=== PATIENT | male | born 1940 | race Caucasian/White ===

== ENCOUNTER 2017-01-10 14:39 | Outpatient (RCR) | payer MEDICARE ==
--- OUTSIDE RECORDS SUMMARY | 2016-10-14 10:06 | XMS REPORT | Continuity of Care Document ---
Author Author [facility] Organization [facility] Address Unknown Phone Unavailable Care Team Providers Care Code Enforcement Officer Name Role Phone Casanova, D PCP [phone] Source Comments Some departments are not documenting in the electronic medical record. If you do not see the information that you expected, contact Release of Information in the Health Information Management department at [phone] for further assistance in locating additional records.[facility] Active Allergies and Adverse Reactions Allergen Noted Date Severity Reactions Comments Pcn 08/15/2016 Medium HIVES Sulfa (Sulfonamide 08/15/2016 Medium HIVES Antibiotics) Current Medications Prescription Sig. Disp. Refills Start End Date Status Date fenofibrate(+) (TRIGLIDE) Take 160 mg by mouth Active 160 mg tablet daily. Take with food. lisinopril (PRINIVIL, Take 40 mg by mouth Active ZESTRIL) 40 mg tablet daily. amLODIPine (NORVASC) 5 mg Take 5 mg by mouth daily. Active tablet furosemide (LASIX) 40 mg Take 40 mg by mouth every Active tablet morning. potassium chloride SR Take 20 mEq by mouth Active (K-DUR) 20 mEq tablet daily. Take with a meal and a full glass of water. nebivolol (BYSTOLIC) 5 mg Take 5 mg by mouth daily. Active tablet alendronate 70 mg tbef Take by mouth every 7 Active days. CINNAMON BARK (CINNAMON Take 500 mg by mouth. Active PO) rosuvastatin (CRESTOR) 5 Take 5 mg by mouth four Active mg tablet times weekly. aspirin 81 mg chewable Chew 81 mg by mouth at Active tablet bedtime daily. Take with food. timolol (TIMOPTIC) 0.5 % 1 Drop once. Active ophthalmic solution brinzolamide(+) (AZOPT) 1 1 Drop twice daily. Active % ophthalmic suspension fish oil /omega-3 fatty Take 1 Cap by mouth twice Active acids (SEA-OMEGA) daily. 340/1000 mg capsule Cinnamon Bark 500 mg cap Take 1 Cap by mouth Active daily. niacin ER (NIASPAN) 500 Take 500 mg by mouth at Active mg tablet bedtime daily. Take with food. latanoprost (XALATAN) Place 1 Drop into or Active 0.005 % ophthalmic around eye(s) at bedtime solution daily. DOCOSAHEXANOIC ACID/EPA Take 1,000 mg by mouth. 09/16/20 Discontin (FISH OIL PO) 16 ued warfarin (COUMADIN) 5 mg Take 5 mg by mouth at 09/30/20 Discontin tablet bedtime daily. 16 ued niacinamide(+) (NIACIN Take 500 mg by mouth at 09/16/20 Discontin (NIACINAMIDE)) 500 mg bedtime daily. Take with 16 ued tablet food. latanoprost (XALATAN) Place 1 Drop into or 09/29/20 Discontin 0.005 % ophthalmic around eye(s) at bedtime 16 ued solution daily. HYDROcodone/acetaminophen Take 1-2 Tabs by mouth 30 Tab 0 09/30/20 10/13/20 Discontin (NORCO) 5/325 mg tablet every 6 hours as needed 16 16 ued for Pain Earliest Fill Date: 09/30/16 Active Problems Problem Noted Date Hypercalcemia 2016 Hyperparathyroidism (HCC) 08/15/2016 Parathyroid adenoma 08/15/2016 History of osteoporosis 08/15/2016 Deep vein thrombosis (DVT) of lower extremity (HCC) 08/15/2016 Most Recent Encounters Date Type Specialty Providers Description 2016 Office Visit Otolaryngology Katelyn Marshall, Parathyroid adenoma PAPhilippe (Primary Dx); Hypercalcemia 2016 [facility] Lazara Pascual MD Hyperparathyroidism, Encounter unspecified 09/29/2016 Hospital Sharon Stephen MD Hyperparathyroidism (HCC) - Encounter 09/30/2016 09/29/2016 Surgery Sharon Stephen MD PARATHYROIDECTOMY 09/16/2016 PAC Office Anesthesiology Sharon Stephen MD Pre-operative Visit cardiovascular examination (Primary Dx); Preop examination; Hyperparathyroidism (HCC) 09/16/2016 Anesthesia Khushbu Weaver, Event [employer] COM[employer]ER 09/13/2016 Cancer Otolaryngology Sharon Stephen MD Conference 09/07/2016 Orders Only Otolaryngology Jacki Tiwari RN Hyperparathyroidism (HCC) (Primary Dx); Preoperative clearance; Deep vein thrombosis (DVT) of distal vein of both lower extremities, unspecified chronicity (HCC) 09/01/2016 Prep for Case Otolaryngology Jacki Tiwari RN 08/25/2016 Telephone Otolaryngology Sharon Stephen MD Appointment 08/15/2016 Office Visit Otolaryngology Sharon Stephen MD Hyperparathyroidism (HCC) (Primary Dx); Parathyroid adenoma; History of osteoporosis; 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 ([facility]) 08/11/2016 [facility] Radiology Sharon Stephen MD Encounter 08/11/2016 [facility] Radiology Sharon Stephen MD Encounter 08/11/2016 [facility] Radiology Sharon Stephen MD Encounter 08/02/2016 Orders Only Oncology Sharon Stephen MD Elevated parathyroid hormone (Primary Dx) 07/26/2016 Orders Only Otolaryngology Sharon Stephen MD Hyperparathyroidism ([facility]) (Primary Dx) Social History Tobacco Use Types Packs/Day Years Used Date Never Smoker Smokeless Tobacco: Never Used Alcohol Use Drinks/Week oz/Week Comments No Last Filed Vital Signs Vital Sign Reading Time Taken Blood Pressure 114/75 2016 1:33 PM [employer] Pulse 66 2016 1:33 PM [employer] DES[employer] Temperature 36.8 C (98.3 F) 09/30/2016 7:55 AM F[employer] DES[employer]ER Respiratory Rate - - Height 1.651 m (5' 5") 2016 1:33 PM [employer]UR DES[employer]ER Weight 97.977 kg (216 lb) 2016 1:33 PM FUR DES[employer]ER Body Mass Index 35.94 2016 1:33 PM [employer] DES[employer]ER Oxygen Saturation 97% 09/30/2016 7:55 AM FUR DESIGNER Plan of Care Date Type Specialty Providers Description 11/01/2016 Appointment Otolaryngology Katelyn Marshall PA-C [address] [place] [address] [phone] (Fax) Health Maintenance Due Date Last Done Comments Physical (Comprehensive) 1947 Exam Pertussis Vaccine 1950 Tetanus Vaccine 1956 Shingles Vaccine 1999 Prevnar/Pneumovax (#1) 2004 Influenza Vaccine 06/30/2016 Procedures from Last 3 Months Procedure Name Priority Date/Time Associated Diagnosis Comments PROCEDURES-SCAN 10/03/2016 Results for this 1:10 PM FUR DES[employer]ER procedure are in the results section. PROCEDURES-SCAN 10/03/2016 Results for this 12:43 PM FUR DESIGNER procedure are in the results section. RECURRENT LARYNGEAL NERVE 09/29/2016 Hyperparathyroidism (HCC) MONITORING 11:20 AM FUR DESIGNER Special Needs 09/27 PER CONV. WITH GRACE, REQUEST TF DR. LYUBOV HAMILTON ([id number]) FLEXIBLE LARYNGOSCOPY 09/29/2016 Hyperparathyroidism (HCC) 11:20 AM [employer] DES[employer]ER Special Needs 09/27 PER CONV. WITH GRACE, REQUEST TF DR. LYUBOV HAMILTON ([id number]) DIRECT LARYNGOSCOPY 09/29/2016 Hyperparathyroidism (HCC) 11:20 AM [employer] DES[employer]ER Special Needs 09/27 PER CONV. WITH GRACE, REQUEST TF DR. LYUBOV HAMILTON ([id number]) PARATHYROIDECTOMY 09/29/2016 Hyperparathyroidism (HCC) 11:20 AM [employer] DES[employer]ER Special Needs 09/27 PER CONV. WITH GRACE, REQUEST TF DR. LYUBOV HAMILTON ([id number]) Results from Last 3 Months PARATHYROID HORMONE (2016 11:25 AM)Only the most recent of 3 results within the time period is included. Component Value Range PTH Hormone 27.2 10-65 PG/ML Specimen Blood CALCIUM (2016 11:25 AM)Only the most recent of 4 results within the time period is included. Component Value Range Calcium 9.6 8.5-10.6 MG/DL Specimen Blood IONIZED CALCIUM (2016 11:25 AM)Only the most recent of 4 results within the time period is included. Component Value Range Ionized Calcium 1.26 1.0-1.3 MMOL/L Specimen Blood PATHOLOGY INTEROPERATIVE REPORT SCAN (10/04/2016 11:07 AM) Narrative Ordered by an unspecified provider. PROCEDURES-SCAN (10/03/2016 1:10 PM) Narrative Ordered by an unspecified provider. PROCEDURES-SCAN (10/03/2016 12:43 PM) Narrative Ordered by an unspecified provider. PTH, INTRA OPERATIVE (09/29/2016 1:02 PM)Only the most recent of 3 results within the time period is included. Component Value Range Time 3RD @ 1302 MIN PTH Quick 61.0 PG/ML Specimen Blood SURGICAL PATHOLOGY (09/29/2016 1:01 PM) Component Value Range PATHOLOGY REPORT [facility] [email or web address] Kelsea Joseph MD, PhD, Director of Anatomic Pathology Department of Pathology and Laboratory Medicine [address] [place] [id number] Surgical Pathology Office: [phone] SURGICAL PATHOLOGY REPORT NAME: CHERIE BEE SURG PATH #: [id number] MR #: [id number] SPECIMEN CLASS: SR BILLING #: [id number] ALT ID #: LOCATION: [facility] DATE OF PROCEDURE: 09/29/2016 AGE: 75 SEX: M DATE RECEIVED: 09/29/2016 : 1940 TIME RECEIVED: 13:01 PHYSICIAN: SHARON STEPHEN DATE OF REPORT: 10/04/2016 COPY TO: DATE OF PRINTIN10/04/2016 ################################################## ###################### Final Diagnosis: A. Parathyroid, "right inferior parathyroid adenoma", parathyroidectomy: Hypercellular parathyroid consistent with adenoma. Attestation: By this signature, I attest that I have personally formulated the final interpretation expressed in this report and that the above diagnosis is based upon my examination of the slides and/or other material indicated in this report. +++Electronically Signed Out By+++ bisi/10/02/2016 Interpreted by: Wes Richmond MD, Attending Physician Alexis Zuniga D.O. 10/04/2016 ################################################## ###################### Material Received: A: right inferior parathyroid adenoma History: 75-year-old male with a clinical history of hyperparathyroidism. Gross Description: A. Received fresh, labeled with the patient's name and "right inferior parathyroid adenoma" is a 2.341 g, 2.4 x 2.4 x 0.6 cm mattson-brown portion of soft tissue. The specimen is inked black and serially sectioned to reveal a mattson-brown and homogenous cut surface. The specimen is submitted for frozen section follows: A1FS Frozen section remnant. A2 The remainder of the specimen. (ads) as09/29/2016 Alexis Zuniga D.O. Intraoperative Consultation: A1FS, parathyroid, "right inferior parathyroid adenoma", excision: Hypercellular parathyroid. Wes Richmond MD, Attending Physician BASIC METABOLIC PANEL (09/16/2016 1:17 PM) Component Value Range Sodium 140 137-147 MMOL/L Potassium 4.9 3.5-5.1 MMOL/L Chloride 109 98-110 MMOL/L CO2 28 21-30 MMOL/L Anion Gap 3 3-12 Glucose 97 70-100 MG/DL Blood Urea Nitrogen 24 7-25 MG/DL Creatinine 1.43 (H) 0.4-1.24 MG/DL Calcium 10.9 (H) 8.5-10.6 MG/DL eGFR Non 48 (L)Comment: >60 mL/min The eGFR is not validated for use in drug dosing adjustments. Continue to use estimated creatinine clearance per dosing reference text. Please contact the Clinical Pharmacist for questions. eGFR 58 (L)Comment: >60 mL/min The eGFR is not validated for use in drug dosing adjustments. Continue to use estimated creatinine clearance per dosing reference text. Please contact the Clinical Pharmacist for questions. Specimen Blood CBC (09/16/2016 1:17 PM) Component Value Range White Blood Cells 5.9 4.5-11.0 K/UL RBC 4.54 4.4-5.5 M/UL Hemoglobin 13.1 (L) 13.5-16.5 GM/DL Hematocrit 39.2 (L) 40-50 % MCV 86.4 80-100 FL MCH 29.0 26-34 PG MCHC 33.5 32.0-36.0 G/DL RDW 14.4 11-15 % Platelet Count 233 150-400 K/UL MPV 7.8 7-11 FL Specimen Blood US THYROID (08/11/2016 2:53 PM) Impressions Parathyroid adenoma posterior to the mid to lower pole of the right lobe of the thyroid. Normal size thyroid with small well-defined bilateral nodules most compatible with follicular nodules Small number of reactive appearing bilateral cervical lymph nodes Finalized by Arsalan Metcalf M.D. on 08/11/2016 5:19 PM. Dictated by Arsalan Metcalf M.D. on 08/11/2016 3:01 PM. Narrative Thyroid sonogram Clinical indications: No evidence of parathyroid hormone. Technique: Ultrasound images were performed over the thyroid and anterior neck. Findings: Correlation is made with a parathyroid scan dated 08/11/2016. A well-defined hypoechoic solid mass with a minimal amount of peripheral blood flow is identified posterior to the the mid to lower pole of the right lobe of the thyroid corresponding to an area of increased activity on the parathyroid nuclear scan of the same day. As nodule measures 2.0 x 1.8 x 1.6 cm. No other findings to suggest parathyroid abnormality identified in the neck. Thyroid is normal in size. The right lobe measures 4.6 x 1.8 x 2.2 cm. The left lobe measures 5.0 x 1.9 x 1.7 cm. Right lobe thyroid nodules There is a well-defined hypoechoic nodule in the anterior inferior right lobe measuring 0.5 x 0.6 x 0.3 cm. Left lobe thyroid nodule There is an isoechoic nodule with small peripheral areas of decreased echogenicity in the lower pole of the left lobe. This nodule measures 0.9 x 0.8 x 1.1 cm and demonstrates minimal, primarily peripheral blood flow. Lymph nodes There is a reactive appearing mildly prominent left mid cervical lymph node measuring 1.3 x 0.8 x 0.3 cm. There is a normal-size reactive appearing right submandibular lymph node measuring 1.6 x 0.7 x 1.1 cm. No abnormal blood flow seen within the lymph nodes. Procedure Note Interface, Radiant Results - Jessa Aug 11, 2016 5:22 PM CDT Thyroid sonogram Clinical indications: No evidence of parathyroid hormone. Technique: Ultrasound images were performed over the thyroid and anterior neck. Findings: Correlation is made with a parathyroid scan dated 08/11/2016. A well-defined hypoechoic solid mass with a minimal amount of peripheral blood flow is identified posterior to the the mid to lower pole of the right lobe of the thyroid corresponding to an area of increased activity on the parathyroid nuclear scan of the same day. As nodule measures 2.0 x 1.8 x 1.6 cm. No other findings to suggest parathyroid abnormality identified in the neck. Thyroid is normal in size. The right lobe measures 4.6 x 1.8 x 2.2 cm. The left lobe measures 5.0 x 1.9 x 1.7 cm. Right lobe thyroid nodules There is a well-defined hypoechoic nodule in the anterior inferior right lobe measuring 0.5 x 0.6 x 0.3 cm. Left lobe thyroid nodule There is an isoechoic nodule with small peripheral areas of decreased echogenicity in the lower pole of the left lobe. This nodule measures 0.9 x 0.8 x 1.1 cm and demonstrates minimal, primarily peripheral blood flow. Lymph nodes There is a reactive appearing mildly prominent left mid cervical lymph node measuring 1.3 x 0.8 x 0.3 cm. There is a normal-size reactive appearing right submandibular lymph node measuring 1.6 x 0.7 x 1.1 cm. No abnormal blood flow seen within the lymph nodes. IMPRESSION Parathyroid adenoma posterior to the mid to lower pole of the right lobe of the thyroid. Normal size thyroid with small well-defined bilateral nodules most compatible with follicular nodules Small number of reactive appearing bilateral cervical lymph nodes Finalized by Arsalan Metcalf M.D. on 08/11/2016 5:19 PM. Dictated by Arsalan Metcalf M.D. on 08/11/2016 3:01 PM. NM PARATHYROID STATIC, SPEC/CT (08/11/2016 1:54 PM) Impressions FOCAL ABNORMAL RADIONUCLIDE ACCUMULATION POSTERIOR AND INFERIOR TO THE RIGHT LOBE OF THE THYROID, CORRESPONDING TO A SMALL NODULE NOTED ON THE SPECT CT FUSED IMAGES, SUGGESTIVE OF A PARATHYROID ADENOMA. Approved by Adrián Rowell MD on 08/11/2016 2:42 PM By my electronic signature, I attest that I have personally reviewed the images for this examination and formulated the interpretations and opinions expressed in this report Finalized by Matthew Nielson M.D. on 08/11/2016 3:08 PM. Dictated by Adrián Rowell MD on 08/11/2016 2:19 PM. Narrative PROCEDURE: PARATHYROID SCAN TUMOR SPECT (SESTAMIBI) CLINICAL HISTORY: Hyperparathyroidism TECHNIQUE: 21.8 mCi of technetium-99m sestamibi was administered intravenously. Anterior planar images of the upper chest, neck, and head were obtained at intervals of 20 minutes and at 2 hours post injection. SPECT-CT images were also obtained at 2 hours post injection. FINDINGS: The 20 minutes post injection anterior planar images show normal activity within the parotid glands, submandibular glands, nasopharynx and thyroid gland. There appears to be a focal area of abnormal increased uptake overlying the lower pole of the right thyroid. The 2 hours post injection planar images show mild washout of activity in the thyroid gland with continued activity in the parotid and submandibular glands and nasopharynx. Planar and SPECT CT images demonstrate persistent focal abnormal increased uptake posterior and inferior to the right lobe of the thyroid which corresponds to a small nodule in the area likely representing a parathyroid adenoma. No other focal areas of abnormal increased uptake are identified. Procedure Note Interface, Radiant Results - Jessa Aug 11, 2016 3:11 PM CDT PROCEDURE: PARATHYROID SCAN TUMOR SPECT (SESTAMIBI) CLINICAL HISTORY: Hyperparathyroidism TECHNIQUE: 21.8 mCi of technetium-99m sestamibi was administered intravenously. Anterior planar images of the upper chest, neck, and head were obtained at intervals of 20 minutes and at 2 hours post injection. SPECT-CT images were also obtained at 2 hours post injection. FINDINGS: The 20 minutes post injection anterior planar images show normal activity within the parotid glands, submandibular glands, nasopharynx and thyroid gland. There appears to be a focal area of abnormal increased uptake overlying the lower pole of the right thyroid. The 2 hours post injection planar images show mild washout of activity in the thyroid gland with continued activity in the parotid and submandibular glands and nasopharynx. Planar and SPECT CT images demonstrate persistent focal abnormal increased uptake posterior and inferior to the right lobe of the thyroid which corresponds to a small nodule in the area likely representing a parathyroid adenoma. No other focal areas of abnormal increased uptake are identified. IMPRESSION FOCAL ABNORMAL RADIONUCLIDE ACCUMULATION POSTERIOR AND INFERIOR TO THE RIGHT LOBE OF THE THYROID, CORRESPONDING TO A SMALL NODULE NOTED ON THE SPECT CT FUSED IMAGES, SUGGESTIVE OF A PARATHYROID ADENOMA. Approved by Adrián Rowell MD on 08/11/2016 2:42 PM By my electronic signature, I attest that I have personally reviewed the images for this examination and formulated the interpretations and opinions expressed in this report Finalized by Matthew Nielson M.D. on 08/11/2016 3:08 PM. Dictated by Adrián Rowell MD on 08/11/2016 2:19 PM.
[~2017-01-10 14:39] MED LIST: AMLO5TAB2; CALC1CAP6; CLN.1T; FOSI40TA; FURO40TA4; KCL20TCR; LORA0.5T; MULT1TAB87; NEBI5TAB8; ONDA4TAB8 SL; OXYC5TAB; SIMV20TA3; TRAM50TA2 PO; [UNRECOGNIZED DRUG - CODE]
[2017-01-12 07:49] LABS: CREATININE SERUM 1.41 MG/DL
== END 2017-01-12 | disposition home or self-care (01) ==
LOC: ONC 14:39
PROVIDERS: ATTEND Radiology Radiation Oncology
DX: C61 Malignant neoplasm of prostate (principal)
CPT/HCPCS: 36415; 82565; 84153; 84520; 99213

== ENCOUNTER → 2017-01-16 | Outpatient (CLI) | payer MEDICARE ==
--- OUTSIDE RECORDS SUMMARY | 2017-01-16 11:08 | XMS REPORT | Continuity of Care Document ---
Author Author [facility] Organization [facility] Address Unknown Phone Unavailable Care Team Providers Care [place]inderman Name Role Phone Casanova, D PCP [phone] Source Comments Some departments are not documenting in the electronic medical record. If you do not see the information that you expected, contact Release of Information in the Health Information Management department at [phone] for further assistance in locating additional records.[facility] Active Allergies and Adverse Reactions [...] ophthalmic around eye(s) at bedtime solution daily. Active Problems Problem Noted Date Hypercalcemia 2016 Hyperparathyroidism (HCC) 08/15/2016 Parathyroid adenoma 08/15/2016 History of osteoporosis 08/15/2016 Deep vein thrombosis (DVT) of lower extremity (HCC) 08/15/2016 Most Recent Encounters Date Type Specialty Providers Description 11/01/2016 Office Visit Otolaryngology Katelyn Marshall, Parathyroid adenoma PA-C (Primary Dx); Hypercalcemia 11/01/2016 Hospital Katelyn Marshall, Benign neoplasm of Encounter PA-C parathyroid gland Social History Tobacco Use Types Packs/Day Years Used Date Never Smoker Smokeless Tobacco: Never Used Alcohol Use Drinks/Week oz/Week Comments No Last Filed Vital Signs Vital Sign Reading Time Taken Blood Pressure 125/79 11/01/2016 1:21 PM [employer]ABLE [employer] Pulse 60 11/01/2016 1:21 PM [employer] Temperature 36.8 C (98.3 F) 09/30/2016 7:55 AM [employer] Respiratory Rate - - Height 1.651 m (5' 5") 11/01/2016 1:21 PM [employer] Weight 100.971 kg (222 lb 9.6 11/01/2016 1:21 PM [employer]ABLE [employer] oz) Body Mass Index 37.04 11/01/2016 1:21 PM [employer]ABLE [employer] Oxygen Saturation 97% 09/30/2016 7:55 AM [employer]ABLE [employer] Plan of Care Health Maintenance Due Date Last Done Comments Physical (Comprehensive) 1947 Exam Pertussis Vaccine 1950 Tetanus Vaccine 1956 Shingles Vaccine 1999 Prevnar/Pneumovax (#1) 2004 Influenza Vaccine 06/30/2016 Results from Last 3 Months IONIZED CALCIUM (11/01/2016 10:58 AM) Component Value Range Ionized Calcium 1.25 1.0-1.3 MMOL/L Specimen Blood CALCIUM (11/01/2016 10:58 AM) Component Value Range Calcium 9.5 8.5-10.6 MG/DL Specimen Blood
--- NOTE | 2017-01-16 12:36 | Diagnostic Imaging Report ---
PROCEDURE: CT abdomen and pelvis without contrast. TECHNIQUE: Multiple contiguous axial images were obtained through the abdomen and pelvis without the use of intravenous contrast. INDICATION: Prostate cancer. FINDINGS: There are mild fibrotic changes seen in the lung bases. There are also old rib fractures seen in the lower ribs. There are numerous lesions in the liver with fluid attenuation of 3.4 cm in size and some are subcentimeter, too small to characterize. At least the larger lesions are most likely related to cysts and multiple simple cysts in the liver were seen on ultrasound of 04/02/2013. The gallbladder appears contracted but no calcified stones. The spleen, the pancreas, and the adrenal glands appear unremarkable. The kidneys demonstrate no hydronephrosis. There is a 4 mm nonobstructive stone in the mid right kidney. The abdominal aorta is normal in caliber. No para-aortic significantly enlarged lymph nodes are seen. There is an IVC filter seen. One of the legs of the filter extend outside the margin of the IVC. There are changes of old pelvic fractures with plate and screws internal fixation in the left pelvic bones. This results in significant beam hardening artifacts. This is also accompanied by posterior fusion hardware at the L4 and L5 levels also contributing to these artifacts. There are fiducial markers within the prostate which is at the upper limits of normal in size. The urinary bladder demonstrates mild wall thickening which may relate to cystitis. There is no bowel obstruction. No significant free fluid or fluid collection in the abdomen or pelvis seen. The osseous structures demonstrate no CT evidence of sclerotic metastasis. IMPRESSION: 1. Mild wall thickening in the urinary bladder may be related to cystitis. 2. There is no solid mass or lymphadenopathy identified in the abdomen or pelvis. Multiple liver lesions appears to relate to simple cysts. 3. IVC filter is in place with some of the filter legs extending outside the IVC margin into the adjacent retroperitoneal fat. Dictated by: Dictated on workstation # [id number]
--- NOTE | 2017-01-16 17:57 | Diagnostic Imaging Report ---
Whole body bone scan. TECHNIQUE: After the intravenous administration of 25 mCi of Technetium 99m MDP, whole body delayed phase bone scan images were obtained with lateral views of the head and neck and the chest regions. INDICATION: Prostate cancer. FINDINGS: There are foci of increased radiotracer uptake seen within the mid and lower left ribs, three foci posteriorly and two foci anteriorly. The patient has evidence of old rib fractures on the lower left rib space on CT scan performed on the same day of the abdomen and pelvis. There is at L1 level mild increased focus of activity seen projecting along the right side of the vertebral body may relate to degenerative changes with corresponding sclerotic changes seen at the costovertebral junction and adjacent facet joints. Also, degenerative-related activity in the lower lumbar spine seen. Urinary tract activity seen. IMPRESSION: Foci of increased activity in the ribs are probably posttraumatic. Upper and lower lumbar spine areas of mild increased uptake are probably degenerative. Correlate clinically and with followup exams. Dictated by: Dictated on workstation # [id number]
== END ==
LOC: CARD 11:04
PROVIDERS: ATTEND Nurse Practitioner Family
DX: C61 Malignant neoplasm of prostate (principal)
CPT/HCPCS: 74176; 78306

== ENCOUNTER → 2017-02-01 | Outpatient (CLI) | payer MEDICARE ==
--- NOTE | 2017-02-02 08:27 | ECHOCARDIOGRAPHY REPORT ---
PROCEDURE PHYSICIAN: EVIE ADAMS DATE OF PROCEDURE: 02/01/2017 TWO DIMENSIONAL ECHOCARDIOGRAM REPORT PRIMARY PHYSICIAN: OTHER PHYSICIAN: REFERRING PHYSICIAN: Dr. Casanova ORDERING PHYSICIAN: INDICATION FOR THE PROCEDURE: Hypertension. MEASUREMENTS DERIVED VALUES LV DIAMETER (LAX) NORMALS NORMALS Diastolic 4.5 (3.6-5.2) Eject. Fract. 60% (60%+/-6%) Systolic (2.3-3.9) Diastolic Vol. % Shortening (0.22-0.42) Systolic Vol. Aortic Root IVS THICKNESS Diastolic 1.3 (0.6-1.1) LVPW THICKNESS Diastolic 1.3 (0.6-1.1) LA DIAMETER Systolic 4 (2.1-3.7) FINDINGS: 1. Technical quality is good. 2. The left ventricle is normal in size with moderate left ventricular hypertrophy noted diffusely. Systolic function appeared to be normal. Estimated ejection fraction 60%. 3. The left atrium is in the upper normal limits. No clot or thrombus were seen within the left atrium. 4. The right atrium and right ventricle are normal in size. No clot or thrombus were seen within the right side. 5. Mitral valve is normal in morphology with mild mitral regurgitation noted by color Doppler flow. No mitral valve prolapse. No mitral valve stenosis. 6. Aortic valve leaflets were not well visualized. No significant aortic stenosis or regurgitation was seen. 7. Tricuspid valve is normal in morphology with mild tricuspid regurgitation noted by color Doppler flow. Doppler across the tricuspid valve estimated the pulmonary artery pressure of 17+ right atrial pressure. 8. Pulmonic valve is functioning normally. 9. No pericardial effusion. IN CONCLUSION: 1. Moderate left ventricular hypertrophy noted diffusely. Systolic function appeared to be preserved. Estimated ejection fraction 60%. 2. Mildly dilated left atrium. 3. Mild mitral and tricuspid regurgitation. 4. Estimated pulmonary artery pressure of 25 mmHg. Job ID: [id number] Dictated Date: 02/01/2017 16:25:31 Lift Builder Whole Date: 02/02/2017 08:24:24 / susan
== END ==
LOC: CARD 13:30
PROVIDERS: ATTEND Physician Assistant
DX: I65.23 Occlusion and stenosis of bilateral carotid arteries (principal); R06.02 Shortness of breath; I10 Essential (primary) hypertension; E78.2 Mixed hyperlipidemia
CPT/HCPCS: 93306

== ENCOUNTER → 2017-02-15 | Outpatient (CLI) | payer MEDICARE ==
--- NOTE | 2017-02-15 15:44 | Diagnostic Imaging Report ---
EXAMINATION: Two views of the right hip. INDICATION: Right groin pain. FINDINGS: There is mild joint space narrowing and subchondral sclerosis compatible with osteoarthritis in the right hip. Mild sclerotic degenerative changes are also seen in the symphysis pubis. Partially visualized hardware fixating the left acetabulum is noted with deformity in the superior left pubic ramus. There is also hardware partially seen in the lower lumbar spine fusing L4 and L5. Mild degenerative changes in the SI joint on the right are also seen. IMPRESSION: Mild degenerative changes. No acute process. Dictated by: Dictated on workstation # [id number]
== END ==
LOC: RAD 14:06
PROVIDERS: ATTEND Internal Medicine
DX: M25.551 Pain in right hip (principal)
CPT/HCPCS: 73502

== ENCOUNTER 2017-03-20 18:05 | Emergency (ER) | payer MEDICARE ==
[~2017-03-20] VITALS: Ht 172.7 cm; Wt 94.8 kg
[2017-03-20] MEDS ORDERED: BICA50TA (18:39)
[2017-03-20 19:04] LABS: BASOPHILS % (AUTO) 0 % (0-10); EOSINOPHILS # (AUTO) 0.1 10^3/uL (0.0-0.3); EOSINOPHILS % (AUTO) 3 % (0-10); LYMPHOCYTES # (AUTO) 1.3 X 10^3 (1.0-4.0); LYMPHOCYTES % (AUTO) 27 % (12-44); MEAN CORPUSCULAR HEMOGLOBIN 29 PG (25-34); MEAN CORPUSCULAR HGB CONC 33 G/DL (32-36); MEAN CORPUSCULAR VOLUME 90 FL (80-99); MEAN PLATELET VOLUME 9.4 FL (7.4-10.4); MONOCYTES # (AUTO) 0.6 X 10^3 (0.0-1.0); MONOCYTES % (AUTO) 12 % (0-12); NEUTROPHILS # (AUTO) 2.9 X 10^3 (1.8-7.8); NEUTROPHILS % (AUTO) 58 % (42-75); PLATELET COUNT 209 10^3/uL (130-400); RED BLOOD COUNT 4.49 10^6/uL (4.35-5.85); RED CELL DISTRIBUTION WIDTH 14.3 % (10.0-14.5)
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
[2017-03-20 19:16] LABS: INR 2.9 (0.8-1.4); PROTHROMBIN TIME PATIENT 30.5 SEC (12.2-14.7)
[2017-03-20 19:27] LABS: ALANINE AMINOTRANSFERASE 19 U/L (0-55); ALBUMIN 4.2 G/DL (3.2-4.5); ANION GAP 8 MMOL/L (5-14); ASPARTATE AMINO TRANSFERASE 23 U/L (5-34); BILIRUBIN,TOTAL 0.4 MG/DL (0.1-1.0); BLOOD UREA NITROGEN 25 MG/DL (7-18); BUN/CREATININE RATIO 16; CALCIUM 9.4 MG/DL (8.5-10.1); CARBON DIOXIDE 28 MMOL/L (21-32); CHLORIDE 103 MMOL/L (98-107); CREATINE KINASE 121 U/L (30-200); CREATININE SERUM 1.58 MG/DL (0.60-1.30); GFR ESTIMATED 43; GLUCOSE 147 MG/DL (70-105); MAGNESIUM 2.1 MG/DL (1.8-2.4); POTASSIUM 4.4 MMOL/L (3.6-5.0); SODIUM 139 MMOL/L (135-145); TOTAL PROTEIN 6.7 G/DL (6.4-8.2)
--- NOTE | 2017-03-20 19:35 | Diagnostic Imaging Report ---
PROCEDURE: CT head without contrast. TECHNIQUE: Multiple contiguous axial images were obtained through the brain without the use of intravenous contrast. INDICATION: Dizziness, altered mental status. COMPARISON: 10/20/2009. DISCUSSION: Mild diffuse brain volume loss is stable, likely age related. White matter hypoattenuation is nonspecific though not greater than expected for age-related chronic small vessel ischemic disease, stable. No acute intracranial hemorrhage, mass, midline shift, or hydrocephalus. The visualized orbits, paranasal sinuses, mastoid air cells, and calvarium are unremarkable. IMPRESSION: 1. Stable head CT. Dictated by: Dictated on workstation # [id number]
--- NOTE | 2017-03-20 19:38 | Diagnostic Imaging Report ---
INDICATION: Dizziness. DISCUSSION: Single portable upright view of the chest was obtained, comparison 01/11/2007. Scarring within the lingula is stable. Underlying COPD is stable. No focal consolidation, pleural fluid, or pneumothorax. Stable normal heart size. IMPRESSION: 1. No acute cardiopulmonary process. Dictated by: Dictated on workstation # [id number]
[2017-03-20 19:47] LABS: TROPONIN I < 0.30 NG/ML (<0.30)
[2017-03-20 20:17] LABS: BILIRUBIN,URINE NEGATIVE (NEGATIVE); KETONES,URINE NEGATIVE (NEGATIVE); LEUKOCYTE ESTERASE ,URINE 1+ (NEGATIVE); NITRITE,URINE NEGATIVE (NEGATIVE); PH,URINE 8 (5-9); PROTEIN,URINE 1+ (NEGATIVE); UROBILINOGEN,URINE NORMAL (NORMAL)
[2017-03-20 20:46] LABS: WBC,URINE 0-2 /HPF
[2017-03-20] MEDS ORDERED: LORA-404 PO (20:58)
[2017-03-20] MEDS ORDERED: RX-LORAZEPAM (ATIVAN) 0.5 MG TAB PPK#4 PO STA (20:59)
[2017-03-20] MEDS ORDERED: RX-LORAZEPAM (ATIVAN) 0.5 MG TAB PPK#4 PO ONE (20:59)
[2017-03-20 21:06] VITALS: BP 132/84
--- OUTSIDE RECORDS SUMMARY | 2017-04-11 16:55 | XMS REPORT | Continuity of Care Document ---
Author Author [facility] Organization [facility] Address Unknown Phone Unavailable Care Team Providers Care Life Skills Instructor Name Role Phone Louis Casanova Shyanne PCP [phone] Source Comments Some departments are not documenting in the electronic medical record. If you do not see the information that you expected, contact Release of Information in the Health Information Management department at [phone] for further assistance in locating additional records.[facility] Active Allergies and Adverse Reactions Allergen Noted [...] Deep vein thrombosis (DVT) of lower extremity ([facility]) 08/15/2016 Social History Tobacco Use Types Packs/Day Years Used Date Never Smoker Smokeless Tobacco: Never Used Alcohol Use Drinks/Week oz/Week Comments No Last Filed Vital Signs Vital Sign Reading Time Taken Blood Pressure 125/79 11/01/2016 1:21 PM [employer] Pulse 60 11/01/2016 1:21 PM [employer] Temperature 36.8 C (98.3 F) 09/30/2016 7:55 AM [employer] Respiratory Rate - - Height 1.651 m (5' 5") 11/01/2016 1:21 PM [employer] Weight 100.971 kg (222 lb 9.6 11/01/2016 1:21 PM [employer] oz) Body Mass Index 37.04 11/01/2016 1:21 PM [employer] Oxygen Saturation 97% 09/30/2016 7:55 AM [employer] Plan of Care Health Maintenance Due Date Last Done Comments Physical (Comprehensive) 1947 Exam Pertussis Vaccine 1950 Tetanus Vaccine 1956 Shingles Vaccine 1999 Prevnar/Pneumovax (#1) 2004 Influenza Vaccine 06/30/2017 Results from Last 3 Months Not on file
--- OUTSIDE RECORDS SUMMARY | 2017-04-11 16:56 | XMS REPORT | Continuity of Care Document ---
Author Author [facility] Organization [facility] Address Unknown Phone Unavailable Allergies Active Description Code Type Severity Reaction Onset Reported/Identified Relationship to Patient Clinical Status Yes Penicillins [id number] Drug Allergy Mild N/A 09/22/2009 Yes Sulfa (Sulfonamide Antibiotics) [id number] Drug Allergy Mild N/A 09/22/2009 Medications Problems Date Dx Coded Attending Type Code Diagnosis Diagnosed By 09/21/2010 Ot 185 MALIGN NEOPL PROSTATE 09/21/2010 Ot V58.0 ENCOUNTER FOR RADIOTHERAPY 07/10/2011 Ot 185 MALIGN NEOPL PROSTATE 11/18/2014 INDY GARZA, ERIKA Hebert Ot 185 05/08/2015 ERIKA PUTNAM MD Ot 185 06/25/2015 Ot 272.4 06/25/2015 Ot 401.9 06/25/2015 Ot 760.9 06/25/2015 Ot 272.4 06/25/2015 Ot 401.9 06/25/2015 Ot 786.09 06/25/2015 Ot 185 06/25/2015 Ot V15.3 06/25/2015 Ot 573.8 06/25/2015 Ot 185 06/25/2015 Ot 185 06/25/2015 Ot 185 06/25/2015 Ot 185 06/25/2015 EVIE ADAMS MD Ot 272.4 06/25/2015 EVIE ADAMS MD Ot 401.9 06/25/2015 EVIE ADAMS MD Ot 573.8 06/25/2015 ERIKA PUTNAM MD Ot 185 06/25/2015 ERIKA PUTNAM MD Ot 185 06/25/2015 ERIKA PUTNAM MD Ot 185 06/25/2015 ERIKA PUTNAM MD Ot 185 06/25/2015 ERIKA PUTNAM MD E Ot 185 07/16/2015 EVIE ADAMS MD Ot 272.4 07/16/2015 EVIE ADAMS MD Ot 401.9 07/16/2015 EVIE ADAMS MD Ot 433.10 07/16/2015 EVIE ADAMS MD Ot 453.40 07/18/2015 JUSTIN MADDOX PRECISION DANCER Ot 496 CHR AIRWAY OBSTRUCT NEC 07/18/2015 JUSTIN MADDOX PRECISION DANCER Ot 593.9 RENAL URETERAL DIS NOS 07/18/2015 JUSTIN MADDOX PRECISION DANCER Ot 780.79 OTH MALAISE FATIGUE 07/18/2015 JUSTIN MADDOX PRECISION DANCER Ot 787.91 DIARRHEA 07/18/2015 JUSTIN MADDOX PRECISION DANCER Ot J44.9 CHRONIC OBSTRUCTIVE PULMONARY DISEASE, U 07/18/2015 JUSTIN MADDOX PRECISION DANCER Ot N28.9 DISORDER OF KIDNEY AND URETER, UNSPECIFI 07/18/2015 JUSTIN MADDOX PRECISION DANCER Ot R19.7 DIARRHEA, UNSPECIFIED 07/18/2015 JUSTIN MADDOX PRECISION DANCER Ot R53.1 WEAKNESS 07/18/2015 JUSTIN MADDOX PRECISION DANCER Ot V58.61 ANTICOAGULANTS,LT,CURRENT USE 07/18/2015 JUSTIN MADDOX PRECISION DANCER Ot Z79.01 SKILLED NURSING (CURRENT) USE OF ANTICOAGULANT 07/24/2015 EVIE ADAMS MD Ot 272.4 07/24/2015 EVIE ADAMS MD Ot 401.9 07/24/2015 EVIE ADAMS MD Ot 433.10 07/24/2015 EVIE ADAMS MD Ot 453.40 11/25/2015 ERIKA PUTNAM MD Ot C61 01/14/2016 ERIKA PUTNAM MD Ot C61 MALIGNANT NEOPLASM OF PROSTATE 01/15/2016 ERIKA PUTNAM MD Ot C61 03/04/2016 Ot 185 MALIGN NEOPL PROSTATE 03/04/2016 Ot V15.3 HX OF IRRADIATION 03/04/2016 Ot 573.8 LIVER DISORDERS NEC 03/04/2016 Ot 185 MALIGN NEOPL PROSTATE 03/04/2016 Ot 185 MALIGN NEOPL PROSTATE 03/04/2016 Ot 185 MALIGN NEOPL PROSTATE 03/04/2016 Ot 185 MALIGN NEOPL PROSTATE 03/04/2016 EVIE ADAMS MD Ot 272.4 HYPERLIPIDEMIA NEC/NOS 03/04/2016 EVIE ADAMS MD Ot 401.9 HYPERTENSION NOS 03/04/2016 EVIE ADAMS MD Ot 573.8 LIVER DISORDERS NEC 03/04/2016 ERIKA PUTNAM MD Ot 185 MALIGN NEOPL PROSTATE 03/04/2016 ERIKA PUTNAM MD Ot 185 MALIGN NEOPL PROSTATE 03/04/2016 ERIKA PUTNAM MD, Ot 185 MALIGN NEOPL PROSTATE 03/04/2016 ERIKA PUTNAM MD, Ot 185 MALIGN NEOPL PROSTATE 03/04/2016 ERIKA PUTNAM MD Ot 185 MALIGN NEOPL PROSTATE 03/04/2016 EVIE ADAMS MD Ot 272.4 HYPERLIPIDEMIA NEC/NOS 03/04/2016 EVIE ADAMS MD Ot 401.9 HYPERTENSION NOS 03/04/2016 EVIE ADAMS MD Ot 433.10 CAROTID ARTERY OCCLUSION W O CEREBRAL IN 03/04/2016 EVIE ADAMS MD Ot 453.40 ACUTE VENOUS EMBOLISM THROMBOSIS UNSP 03/04/2016 ERIKA PUTNAM MD, Ot C61 MALIGNANT NEOPLASM OF PROSTATE 03/04/2016 LING REYES MD Ot S46.001A UNSP INJ MUSC/TEND THE ROTATOR CUFF OF R 03/04/2016 LING REYES MD Ot X58.XXXA EXPOSURE TO OTHER SPECIFIED FACTORS , INI 03/04/2016 LING REYES MD Ot Y92.017 GARDEN OR YARD IN SINGLE-FAMILY ( PRIVATE 03/04/2016 LING REYES MD, Ot Y93.H2 ACTIVITY, GARDENING AND LANDSCAPING 03/04/2016 LING REYES MD Ot Y99.8 OTHER EXTERNAL CAUSE STATUS 03/07/2016 LING REYES MD Ot S46.001A UNSP INJ MUSC/TEND THE ROTATOR CUFF OF R 03/07/2016 LING REYES MD Ot X58.XXXA EXPOSURE TO OTHER SPECIFIED FACTORS , INI 03/07/2016 LING REYES MD Ot Y92.017 GARDEN OR YARD IN SINGLE-FAMILY ( PRIVATE 03/07/2016 LING REYES MD, Ot Y93.H2 ACTIVITY, GARDENING AND LANDSCAPING 03/07/2016 LING REYES MD Ot Y99.8 OTHER EXTERNAL CAUSE STATUS 03/30/2016 Ot V58.61 ANTICOAGULANTS,LT,CURRENT USE 03/30/2016 Ot V58.83 ENCOUNTER FOR THERAPEUTIC DRUG MONITORIN 03/30/2016 Ot 453.40 ACUTE VENOUS EMBOLISM THROMBOSIS UNSP 03/30/2016 Ot V58.61 ANTICOAGULANTS,LT,CURRENT USE 04/14/2016 PUTNAM MD, ERIKA E Ot C61 MALIGNANT NEOPLASM OF PROSTATE 04/14/2016 ERIKA PUTNAM MD Ot C61 MALIGNANT NEOPLASM OF PROSTATE 04/18/2016 ERIKA PUTNAM MD Ot C61 MALIGNANT NEOPLASM OF PROSTATE 05/06/2016 ERIKA PUTNAM MD Ot C61 MALIGNANT NEOPLASM OF PROSTATE 06/30/2016 Ot V58.61 ANTICOAGULANTS,LT,CURRENT USE 06/30/2016 Ot V58.83 ENCOUNTER FOR THERAPEUTIC DRUG MONITORIN 07/28/2016 Ot 573.8 LIVER DISORDERS NEC 07/28/2016 Ot 185 MALIGN NEOPL PROSTATE 07/28/2016 Ot 185 MALIGN NEOPL PROSTATE 07/28/2016 Ot 185 MALIGN NEOPL PROSTATE 07/28/2016 Ot 185 MALIGN NEOPL PROSTATE 07/28/2016 EVIE ADAMS MD Ot 272.4 HYPERLIPIDEMIA NEC/NOS 07/28/2016 EVIE ADAMS MD Ot 401.9 HYPERTENSION NOS 07/28/2016 EVIE ADAMS MD Ot 573.8 LIVER DISORDERS NEC 07/28/2016 ERIKA PUTNAM MD Ot 185 MALIGN NEOPL PROSTATE 07/28/2016 ERIKA PUTNAM MD Ot 185 MALIGN NEOPL PROSTATE 07/28/2016 ERIKA PUTNAM MD Ot 185 MALIGN NEOPL PROSTATE 07/28/2016 ERIKA PUTNAM MD Ot 185 MALIGN NEOPL PROSTATE 07/28/2016 ERIKA PUTNAM MD Ot 185 MALIGN NEOPL PROSTATE 07/28/2016 EVIE ADAMS MD Ot 272.4 HYPERLIPIDEMIA NEC/NOS 07/28/2016 EVIE ADAMS MD Ot 401.9 HYPERTENSION NOS 07/28/2016 EVIE ADAMS MD Ot 433.10 CAROTID ARTERY OCCLUSION W O CEREBRAL IN 07/28/2016 EVIE ADAMS MD Ot 453.40 ACUTE VENOUS EMBOLISM THROMBOSIS UNSP 07/28/2016 ERIKA PUTNAM MD Ot C61 MALIGNANT NEOPLASM OF PROSTATE 07/28/2016 JUAREZ MAGALLANES MD Ot E20.9 HYPOPARATHYROIDISM, UNSPECIFIED 07/28/2016 JUAREZ MAGALLANES MD Ot M85.80 OTH DISRD OF BONE DENSITY AND STRUCTURE, 07/30/2016 Ot V58.61 ANTICOAGULANTS,LT,CURRENT USE 07/30/2016 Ot V58.83 ENCOUNTER FOR THERAPEUTIC DRUG MONITORIN 08/01/2016 JUAREZ MAGALLANES MD Ot E20.9 HYPOPARATHYROIDISM, UNSPECIFIED 08/01/2016 JUAREZ MAGALLANES MD Ot M85.80 OTH DISRD OF BONE DENSITY AND STRUCTURE, 08/18/2016 JUAREZ MAGALLANES MD Ot E20.9 HYPOPARATHYROIDISM, UNSPECIFIED 08/18/2016 JUAREZ MAGALLANES MD Ot M85.80 OTH DISRD OF BONE DENSITY AND STRUCTURE, 08/30/2016 Ot V58.61 ANTICOAGULANTS,LT,CURRENT USE 08/30/2016 Ot V58.83 ENCOUNTER FOR THERAPEUTIC DRUG MONITORIN 09/29/2016 Ot 453.40 ACUTE VENOUS EMBOLISM THROMBOSIS UNSP 09/29/2016 Ot V58.61 ANTICOAGULANTS,LT,CURRENT USE 10/17/2016 ERIKA PUTNAM MD Ot C61 MALIGNANT NEOPLASM OF PROSTATE 10/24/2016 DL BOTELLO MD Ot N28.9 DISORDER OF KIDNEY AND URETER, UNSPECIFI 10/24/2016 DL BOTELLO MD Ot R11.2 NAUSEA WITH VOMITING, UNSPECIFIED 10/24/2016 DL BOTELLO MD Ot R19.7 DIARRHEA, UNSPECIFIED 10/24/2016 DL BOTELLO MD Ot Z79.899 OTHER SKILLED NURSING (CURRENT) DRUG THERAPY 10/26/2016 DL BOTELLO MD Ot N28.9 DISORDER OF KIDNEY AND URETER, UNSPECIFI 10/26/2016 DL BOTELLO MD Ot R11.2 NAUSEA WITH VOMITING, UNSPECIFIED 10/26/2016 DL BOTELLO MD Ot R19.7 DIARRHEA, UNSPECIFIED 10/26/2016 DL BOTELLO MD T Ot Z79.899 OTHER SKILLED NURSING (CURRENT) DRUG THERAPY 11/22/2016 ERIKA PUTNAM MD Ot C61 MALIGNANT NEOPLASM OF PROSTATE 01/12/2017 ERIKA PUTNAM MD Ot C61 MALIGNANT NEOPLASM OF PROSTATE 01/13/2017 ERIKA PUTNAM MD Ot C61 MALIGNANT NEOPLASM OF PROSTATE 01/16/2017 Ot 185 MALIGN NEOPL PROSTATE 01/16/2017 Ot 185 MALIGN NEOPL PROSTATE 01/16/2017 Ot 185 MALIGN NEOPL PROSTATE 01/16/2017 Ot 185 MALIGN NEOPL PROSTATE 01/16/2017 EVIE ADAMS MD Ot 272.4 HYPERLIPIDEMIA NEC/NOS 01/16/2017 EVIE ADAMS MD Ot 401.9 HYPERTENSION NOS 01/16/2017 EVIE ADAMS MD Ot 573.8 LIVER DISORDERS NEC 01/16/2017 ERIKA PUTNAM MD Ot 185 MALIGN NEOPL PROSTATE 01/16/2017 ERIKA PUTNAM MD Ot 185 MALIGN NEOPL PROSTATE 01/16/2017 ERIKA PUTNAM MD Ot 185 MALIGN NEOPL PROSTATE 01/16/2017 ERIKA PUTNAM MD E Ot 185 MALIGN NEOPL PROSTATE 01/16/2017 ERIKA PUTNAM MD E Ot 185 MALIGN NEOPL PROSTATE 01/16/2017 EVIE ADAMS MD Ot 272.4 HYPERLIPIDEMIA NEC/NOS 01/16/2017 EVIE ADAMS MD Ot 401.9 HYPERTENSION NOS 01/16/2017 EVIE ADAMS MD Ot 433.10 CAROTID ARTERY OCCLUSION W O CEREBRAL IN 01/16/2017 EVIE ADAMS MD Ot 453.40 ACUTE VENOUS EMBOLISM THROMBOSIS UNSP 01/16/2017 ERIKA PUTNAM MD Ot C61 MALIGNANT NEOPLASM OF PROSTATE 01/16/2017 JUAREZ MAGALLANES MD Ot E20.9 HYPOPARATHYROIDISM, UNSPECIFIED 01/16/2017 JUAREZ MAGALLANES MD Ot M85.80 OTH DISRD OF BONE DENSITY AND STRUCTURE, 01/16/2017 MARI WHITLOCK Ot C61 MALIGNANT NEOPLASM OF PROSTATE 01/17/2017 JOSHUA HICKS, RODERICK Dan UNIT MANAGER CONVENIENCE STORES Ot C61 MALIGNANT NEOPLASM OF PROSTATE 01/17/2017 JOSHUA HICKS, RODERICK Dan UNIT MANAGER CONVENIENCE STORES Ot C61 MALIGNANT NEOPLASM OF PROSTATE 01/22/2017 JOSHUA HICKS, RODERICK Dan UNIT MANAGER CONVENIENCE STORES Ot C61 MALIGNANT NEOPLASM OF PROSTATE 02/01/2017 Ot 185 MALIGN NEOPL PROSTATE 02/01/2017 Ot 185 MALIGN NEOPL PROSTATE 02/01/2017 Ot 185 MALIGN NEOPL PROSTATE 02/01/2017 Ot 185 MALIGN NEOPL PROSTATE 02/01/2017 EVIE ADAMS MD Ot 272.4 HYPERLIPIDEMIA NEC/NOS 02/01/2017 EVIE ADAMS MD Ot 401.9 HYPERTENSION NOS 02/01/2017 EVIE ADAMS MD Ot 573.8 LIVER DISORDERS NEC 02/01/2017 ERIKA PUTNAM MD Ot 185 MALIGN NEOPL PROSTATE 02/01/2017 ERIKA PUTNAM MD Ot 185 MALIGN NEOPL PROSTATE 02/01/2017 ERIKA PUTNAM MD Ot 185 MALIGN NEOPL PROSTATE 02/01/2017 ERIKA PUTNAM MD Ot 185 MALIGN NEOPL PROSTATE 02/01/2017 ERIKA PUTNAM MD Ot 185 MALIGN NEOPL PROSTATE 02/01/2017 EVIE ADAMS MD Ot 272.4 HYPERLIPIDEMIA NEC/NOS 02/01/2017 EVIE ADAMS MD Ot 401.9 HYPERTENSION NOS 02/01/2017 EVIE ADAMS MD Ot 433.10 CAROTID ARTERY OCCLUSION W O CEREBRAL IN 02/01/2017 EVIE ADAMS MD Ot 453.40 ACUTE VENOUS EMBOLISM THROMBOSIS UNSP 02/01/2017 ERIKA PUTNAM MD, Ot C61 MALIGNANT NEOPLASM OF PROSTATE 02/01/2017 ELPIDIO GARZA, JUAREZ Kimble Ot E20.9 HYPOPARATHYROIDISM, UNSPECIFIED 02/01/2017 ELPIDIO GARZA, JUAREZ Kimble Ot M85.80 OTH DISRD OF BONE DENSITY AND STRUCTURE, 02/01/2017 JOSHUA HICKS, RODERICK MATOS Ot C61 MALIGNANT NEOPLASM OF PROSTATE 02/01/2017 MARI WHITLOCK Ot C61 MALIGNANT NEOPLASM OF PROSTATE 02/02/2017 KARISSA PA, KASSIDY K Ot E78.2 MIXED HYPERLIPIDEMIA 02/02/2017 RICHI-LEELEE PA, KASSIDY K Ot I10 ESSENTIAL (PRIMARY) HYPERTENSION 02/02/2017 RICHI-LEELEE PA, KASSIDY K Ot 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 02/02/2017 KARISSA PA, KASSIDY K Ot R06.02 SHORTNESS OF BREATH 02/07/2017 KARISSA PHAM, KASSIDY K Ot E78.2 MIXED HYPERLIPIDEMIA 02/07/2017 RICHI-LEELEE PA, KASSIDY K Ot I10 ESSENTIAL (PRIMARY) HYPERTENSION 02/07/2017 RICHI-LEELEE PA, KASSIDY K Ot 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 02/07/2017 RICHI-LEELEE PA, KASSIDY K Ot R06.02 SHORTNESS OF BREATH 02/08/2017 JOSHUA HICKS, RODERICK Dan UNIT MANAGER CONVENIENCE STORES Ot C61 MALIGNANT NEOPLASM OF PROSTATE 02/16/2017 MARI WHITLOCK Ot C61 MALIGNANT NEOPLASM OF PROSTATE 02/17/2017 JOSHUA HICKS, RODERICK MATOS Ot C61 MALIGNANT NEOPLASM OF PROSTATE 02/21/2017 JUAREZ MAGALLANES MD, Ot M25.551 PAIN IN RIGHT HIP 03/06/2017 KARISSA PA, KASSIDY K Ot E78.2 MIXED HYPERLIPIDEMIA 03/06/2017 KARISSA PA, KASSIDY K Ot I10 ESSENTIAL (PRIMARY) HYPERTENSION 03/06/2017 KARISSA PA, KASSIDY K Ot 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 03/06/2017 KARISSA PA, KASSIDY K Ot R06.02 SHORTNESS OF BREATH 03/08/2017 KARISSA PA, KASISDY K Ot E78.2 MIXED HYPERLIPIDEMIA 03/08/2017 KARISSA PA, KASSIDY K Ot I10 ESSENTIAL (PRIMARY) HYPERTENSION 03/08/2017 KARISSA PA, KASSIDY K Ot 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 03/08/2017 KARISSA PA, KASSIDY K Ot R06.02 SHORTNESS OF BREATH 03/10/2017 MARI WHITLOCK Ot C61 MALIGNANT NEOPLASM OF PROSTATE 03/13/2017 JUAREZ MAGALLANES MD, Ot M25.551 PAIN IN RIGHT HIP 03/16/2017 JUAREZ MAGALLANES MD, Ot M25.551 PAIN IN RIGHT HIP 03/28/2017 MARI WHITLOCK Ot C61 MALIGNANT NEOPLASM OF PROSTATE 04/04/2017 MARI WHITLOCK Ot C61 MALIGNANT NEOPLASM OF PROSTATE Procedures Results Test Result Range Prostate specific ag [mass/volume] in serum or plasma - 10/14/16 10:13 Prostate specific ag [mass/volume] in serum or plasma 5.11 % 0.00-4.00 Complete blood count (CBC) with automated white blood cell (WBC) differential - 10/24/16 17:43 Blood leukocytes automated count (number/volume) 9.2 10*3/ uL 4.3-11.0 Blood erythrocytes automated count (number/volume) 5.27 10*6 /uL 4.35-5.85 Venous blood hemoglobin measurement (mass/volume) 15.5 g/dL 13.3-17.7 Blood hematocrit (volume fraction) 48 % 40-54 Automated erythrocyte mean corpuscular volume 90 [foz_us] 80-99 Automated erythrocyte mean corpuscular hemoglobin (mass per erythrocyte) 29 pg 25-34 Automated erythrocyte mean corpuscular hemoglobin concentration measurement ( mass/volume) 33 g/dL 32-36 Automated erythrocyte distribution width ratio 14.0 % 10.0-14.5 Automated blood platelet count (count/volume) 245 10*3/uL 130-400 Automated blood platelet mean volume measurement 10.0 [foz_ us] 7.4-10.4 Automated blood neutrophils/100 leukocytes 92 % 42-75 Automated blood lymphocytes/100 leukocytes 3 % 12-44 Blood monocytes/100 leukocytes 5 % 0-12 Automated blood eosinophils/100 leukocytes 0 % 0-10 Automated blood basophils/100 leukocytes 0 % 0-10 Blood neutrophils automated count (number/volume) 8.4 10*3 1.8-7.8 Blood lymphocytes automated count (number/volume) 0.3 10*3 1.0-4.0 Blood monocytes automated count (number/volume) 0.5 10*3 0.0-1.0 Automated eosinophil count 0.0 10*3/uL 0.0-0.3 Automated blood basophil count (count/volume) 0.0 10*3/uL 0.0-0.1 Blood manual differential performed detection - 10/24/16 17:43 Blood monocytes/100 leukocytes 2 % NRG Manual blood segmented neutrophils/100 leukocytes 92 % NRG Blood band neutrophils/100 leukocytes 0 % NRG Manual blood lymphocytes/100 leukocytes 5 % NRG Manual eosinophils/100 leukocytes in nose 1 % NRG Manual blood basophils/100 leukocytes 0 % NRG Blood erythrocyte morphology finding identification [facility] Comprehensive metabolic panel - 10/24/16 17:43 Serum or plasma sodium measurement (moles/volume) 140 mmol/ L 135-145 Serum or plasma potassium measurement (moles/volume) 4.3 mmol/L 3.6-5.0 Serum or plasma chloride measurement (moles/volume) 104 mmol /L 98-107 Carbon dioxide 24 mmol/L 21-32 Serum or plasma anion gap determination (moles/volume) 12 mmol/L 5-14 Serum or plasma urea nitrogen measurement (mass/volume) 34 mg/dL 7-18 Serum or plasma creatinine measurement (mass/volume) 1.94 mg /dL 0.60-1.30 Serum or plasma urea nitrogen/creatinine mass ratio 18 NRG Serum or plasma creatinine measurement with calculation of estimated glomerular filtration rate 34 NRG Serum or plasma glucose measurement (mass/volume) 143 mg/dL 70-105 Serum or plasma calcium measurement (mass/volume) 8.9 mg/dL 8.5-10.1 Serum or plasma total bilirubin measurement (mass/volume) 0.5 mg/dL 0.1-1.0 Serum or plasma alkaline phosphatase measurement (enzymatic activity/volume) 30 U/L 40-136 Serum or plasma aspartate aminotransferase measurement (enzymatic activity/ volume) 27 U/L 5-34 Serum or plasma alanine aminotransferase measurement (enzymatic activity/volume ) 22 U/L 0-55 Serum or plasma protein measurement (mass/volume) 7.1 g/dL 6.4-8.2 Serum or plasma albumin measurement (mass/volume) 4.4 g/dL 3.2-4.5 Magnesium - 10/24/16 17:43 Magnesium 2.0 mg/dL 1.8-2.4 PT panel in platelet poor plasma by coagulation assay - 10/24/16 17:43 Prothrombin time (PT) in platelet poor plasma by coagulation assay 28.9 s 12.2-14.7 INR in platelet poor plasma or blood by coagulation assay 2.7 0.8-1.4 Prostate specific ag [mass/volume] in serum or plasma - 01/09/17 09:41 Prostate specific ag [mass/volume] in serum or plasma 6.20 % 0.00-4.00 Serum or plasma urea nitrogen measurement (mass/volume) - 01/09/17 09:41 Serum or plasma urea nitrogen measurement (mass/volume) 26 mg/dL NRG Serum or plasma creatinine measurement (mass/volume) - 01/09/17 09:41 Serum or plasma creatinine measurement (mass/volume) 1.41 mg /dL NRG Complete blood count (CBC) with automated white blood cell (WBC) differential - 03/20/17 18:54 Blood leukocytes automated count (number/volume) 5.0 10*3/ uL 4.3-11.0 Blood erythrocytes automated count (number/volume) 4.49 10*6 /uL 4.35-5.85 Venous blood hemoglobin measurement (mass/volume) 13.1 g/dL 13.3-17.7 Blood hematocrit (volume fraction) 40 % 40-54 Automated erythrocyte mean corpuscular volume 90 [foz_us] 80-99 Automated erythrocyte mean corpuscular hemoglobin (mass per erythrocyte) 29 pg 25-34 Automated erythrocyte mean corpuscular hemoglobin concentration measurement ( mass/volume) 33 g/dL 32-36 Automated erythrocyte distribution width ratio 14.3 % 10.0-14.5 Automated blood platelet count (count/volume) 209 10*3/uL 130-400 Automated blood platelet mean volume measurement 9.4 [foz_us ] 7.4-10.4 Automated blood neutrophils/100 leukocytes 58 % 42-75 Automated blood lymphocytes/100 leukocytes 27 % 12-44 Blood monocytes/100 leukocytes 12 % 0-12 Automated blood eosinophils/100 leukocytes 3 % 0-10 Automated blood basophils/100 leukocytes 0 % 0-10 Blood neutrophils automated count (number/volume) 2.9 10*3 1.8-7.8 Blood lymphocytes automated count (number/volume) 1.3 10*3 1.0-4.0 Blood monocytes automated count (number/volume) 0.6 10*3 0.0-1.0 Automated eosinophil count 0.1 10*3/uL 0.0-0.3 Automated blood basophil count (count/volume) 0.0 10*3/uL 0.0-0.1 PT panel in platelet poor plasma by coagulation assay - 03/20/17 18:54 Prothrombin time (PT) in platelet poor plasma by coagulation assay 30.5 s 12.2-14.7 INR in platelet poor plasma or blood by coagulation assay 2.9 0.8-1.4 Activated partial thromboplastin time (aPTT) in platelet poor plasma bycoagulation assay - 03/20/17 18:54 Activated partial thromboplastin time (aPTT) in platelet poor plasma bycoagulation assay 34 s 24-35 Comprehensive metabolic panel - 03/20/17 18:54 Serum or plasma sodium measurement (moles/volume) 139 mmol/ L 135-145 Serum or plasma potassium measurement (moles/volume) 4.4 mmol/L 3.6-5.0 Serum or plasma chloride measurement (moles/volume) 103 mmol /L 98-107 Carbon dioxide 28 mmol/L 21-32 Serum or plasma anion gap determination (moles/volume) 8 mmol/L 5-14 Serum or plasma urea nitrogen measurement (mass/volume) 25 mg/dL 7-18 Serum or plasma creatinine measurement (mass/volume) 1.58 mg /dL 0.60-1.30 Serum or plasma urea nitrogen/creatinine mass ratio 16 NRG Serum or plasma creatinine measurement with calculation of estimated glomerular filtration rate 43 NRG Serum or plasma glucose measurement (mass/volume) 147 mg/dL 70-105 Serum or plasma calcium measurement (mass/volume) 9.4 mg/dL 8.5-10.1 Serum or plasma total bilirubin measurement (mass/volume) 0.4 mg/dL 0.1-1.0 Serum or plasma alkaline phosphatase measurement (enzymatic activity/volume) 21 U/L 40-136 Serum or plasma aspartate aminotransferase measurement (enzymatic activity/ volume) 23 U/L 5-34 Serum or plasma alanine aminotransferase measurement (enzymatic activity/volume ) 19 U/L 0-55 Serum or plasma protein measurement (mass/volume) 6.7 g/dL 6.4-8.2 Serum or plasma albumin measurement (mass/volume) 4.2 g/dL 3.2-4.5 Magnesium - 03/20/17 18:54 Magnesium 2.1 mg/dL 1.8-2.4 Serum or plasma creatine kinase measurement (enzymatic activity/volume) - 03/20 18:54 Serum or plasma creatine kinase measurement (enzymatic activity/volume) 121 U/L 30-200 Serum or plasma creatine kinase MB measurement (enzymatic activity/volume) - 18:54 Serum or plasma creatine kinase MB measurement (enzymatic activity/volume) 2.2 ng/mL <6.6 Serum or plasma troponin i.cardiac measurement (mass/volume) - 03/20/17 18:54 Serum or plasma troponin i.cardiac measurement (mass/volume) < ng/mL <0.30 Serum or plasma thyrotropin measurement by detection limit <=0.05 miu/l (units/ volume) - 03/20/17 18:54 Serum or plasma thyrotropin measurement by detection limit <=0.05 miu/l (units/ volume) 0.93 u[iU]/mL 0.35-4.94 Complete urinalysis with reflex to culture - 03/20/17 20:00 Urine color determination YELLOW NRG Urine clarity determination VERY CLOUDY NRG Urine pH measurement by test strip 8 5- 9 Specific gravity of urine by test strip 1.010 1.016-1.022 Urine protein assay by test strip, semi-quantitative 1+ NEGATIVE Urine glucose detection by automated test strip NEGATIVE NEGATIVE Erythrocytes detection in urine sediment by light microscopy 5+ NEGATIVE Urine ketones detection by automated test strip NEGATIVE NEGATIVE Urine nitrite detection by test strip NEGATIVE NEGATIVE Urine total bilirubin detection by test strip NEGATIVE NEGATIVE Urine urobilinogen measurement by automated test strip (mass/volume) NORMAL NORMAL Urine leukocyte esterase detection by dipstick 1+ NEGATIVE Automated urine sediment erythrocyte count by microscopy (number/high power field) TNTC NRG Automated urine sediment leukocyte count by microscopy (number/high power field ) [HPF] NRG Bacteria detection in urine sediment by light microscopy NEGATIVE NRG Crystals detection in urine sediment by light microscopy NONE NRG Casts detection in urine sediment by light microscopy NONE NRG Mucus detection in urine sediment by light microscopy NEGATIVE NRG Complete urinalysis with reflex to culture NO NRG Encounters ACCT No. Visit Date/Time Discharge Status Pt. Type Provider Facility Loc./Unit Complaint [id number] 03/20/2017 18:06:00 2016 21:08:00 DIS Emergency GABE SOLARES DO [facility] ER DIZZY SPELLS [id number] 01/10/2017 14:39:00 2016 00:01:00 DIS Outpatient ERIKA PUTNAM MD [facility] ONC [id number] 10/24/2016 16:19:00 2015 19:26:00 DIS Emergency DL BOTELLO MD [facility] ER VOMITING,DIARRHEA [id number] 03/04/2016 09:57:00 2015 10:47:00 DIS Emergency LING REYES MD [facility] ER RIGHT SHOULDER PAIN [id number] 10/16/2015 08:48:00 2015 00:01:00 DIS Outpatient ERIKA PUTNAM MD [facility] ONC [id number] 07/18/2015 13:44:00 2014 16:00:00 DIS Emergency JUSTIN MADDOX PRECISION DANCER [facility] ER WEAKNESS/DIARRHEA [id number] 06/25/2015 12:44:00 2014 23:59:59 CLS Outpatient EVIE ADAMS MD [facility] CARD HTN CAF DVT HYPERLIPIDEMIA [id number] 04/16/2015 08:51:00 2014 23:59:59 CLS Outpatient ERIKA PUTNAM MD [facility] ONC [id number] 10/16/2014 09:32:00 2013 23:59:59 CLS Outpatient ERIKA PUTNAM MD [facility] ONC [id number] 04/15/2014 09:03:00 2013 23:59:59 CLS Outpatient ERIKA PUTNAM MD [facility] ONC [id number] 10/15/2013 15:33:00 2012 23:59:59 CLS Outpatient ERIKA PUTNAM MD [facility] ONC [id number] 04/17/2013 08:52:00 2012 23:59:59 CLS Outpatient ERIKA PUTNAM MD [facility] ONC [id number] 04/02/2013 08:58:00 2012 23:59:59 CLS Outpatient ANGIE GARZA, EVIE Aguilar [facility] RAD HTN,HLP,HEPATIC CYST [id number] 04/10/2017 09:01:00 ACT Outpatient MARI WHITLOCK [facility] ONC [id number] 02/15/2017 14:06:00 ACT Outpatient JUAREZ MAGALLANES MD [facility] RAD RT HIP,GROIN PAIN [id number] 02/01/2017 13:30:00 ACT Outpatient KASSIDY VASQUEZ [facility] CARD CAROTID ARTERY STENOSIS,DYSPNEA,HTN,HLP [id number] 01/16/2017 11:04:00 ACT Outpatient JOSHUA HICKS, RODERICK MATOS [facility] CARD PROSTATE CA [id number] 07/28/2016 11:18:00 ACT Outpatient JUAREZ MAGALLANES MD [facility] RAD EVALUATE FOR OSTEOPOROSIS [id number] 04/15/2016 08:46:00 ACT Outpatient ERIKA PUTNAM MD [facility] ONC [id number] 06/25/2015 12:44:00 Document Registration [id number] 06/25/2015 12:44:00 Document Registration [id number] 06/25/2015 12:44:00 Document Registration [id number] 10/17/2012 09:02:00 Document Registration [id number] 03/27/2012 11:21:00 Document Registration [id number] 09/13/2011 08:57:00 Document Registration [id number] 03/10/2011 08:10:00 Document Registration [id number] 10/11/2010 13:08:00 Document Registration [id number] 03/31/2010 09:15:00 Document Registration [id number] 03/25/2010 09:16:00 Document Registration [id number] 09/07/2009 12:40:00 Document Registration [id number] 08/20/2009 14:59:00 Document Registration
== END 2017-03-20 21:08 | disposition home or self-care (01) ==
LOC: EDUNIT# 18:05 → ER 18:06
DX: R42 Dizziness and giddiness (principal); C61 Malignant neoplasm of prostate; N28.9 Disorder of kidney and ureter, unspecified; F41.9 Anxiety disorder, unspecified; M54.9 Dorsalgia, unspecified; I10 Essential (primary) hypertension; I42.9 Cardiomyopathy, unspecified; E78.00 Pure hypercholesterolemia, unspecified
CPT/HCPCS: 36415; 70450; 71010; 80053; 81000; 82550; 82553; 83735; 84443; 84484; 85025; 85610; 85730; 93005; 93041

== ENCOUNTER 2017-04-10 09:01 | Outpatient (RCR) | payer MEDICARE ==
[2017-03-14 15:41] LABS: BASOPHILS % (AUTO) 1 % (0-10); EOSINOPHILS # (AUTO) 0.2 10^3/uL (0.0-0.3); EOSINOPHILS % (AUTO) 3 % (0-10); LYMPHOCYTES # (AUTO) 1.6 X 10^3 (1.0-4.0); LYMPHOCYTES % (AUTO) 32 % (12-44); MEAN CORPUSCULAR HEMOGLOBIN 29 PG (25-34); MEAN CORPUSCULAR HGB CONC 33 G/DL (32-36); MEAN CORPUSCULAR VOLUME 89 FL (80-99); MEAN PLATELET VOLUME 9.2 FL (7.4-10.4); MONOCYTES # (AUTO) 0.5 X 10^3 (0.0-1.0); MONOCYTES % (AUTO) 11 % (0-12); NEUTROPHILS # (AUTO) 2.8 X 10^3 (1.8-7.8); NEUTROPHILS % (AUTO) 54 % (42-75); PLATELET COUNT 216 10^3/uL (130-400); RED BLOOD COUNT 4.52 10^6/uL (4.35-5.85); RED CELL DISTRIBUTION WIDTH 14.5 % (10.0-14.5); WHITE BLOOD COUNT 5.2 10^3/uL (4.3-11.0)
[2017-03-14 16:03] LABS: ALBUMIN 4.2 G/DL (3.2-4.5); BILIRUBIN,TOTAL 0.3 MG/DL (0.1-1.0); CALCIUM 9.5 MG/DL (8.5-10.1); CREATININE SERUM 1.58 MG/DL (0.60-1.30); POTASSIUM 4.2 MMOL/L (3.6-5.0); TOTAL PROTEIN 6.9 G/DL (6.4-8.2)
[~2017-04-10 09:01] MED LIST changes: +BICA50TA; +LEUPROLIDE ACETATE 7.5 MG ELIGARD SQ SCH; +LORA-404 PO
[2017-04-10 09:20] LABS: BASOPHILS % (AUTO) 1 % (0-10); EOSINOPHILS # (AUTO) 0.2 10^3/uL (0.0-0.3); EOSINOPHILS % (AUTO) 3 % (0-10); LYMPHOCYTES # (AUTO) 1.2 X 10^3 (1.0-4.0); LYMPHOCYTES % (AUTO) 24 % (12-44); MEAN CORPUSCULAR HEMOGLOBIN 30 PG (25-34); MEAN CORPUSCULAR HGB CONC 33 G/DL (32-36); MEAN CORPUSCULAR VOLUME 90 FL (80-99); MEAN PLATELET VOLUME 8.9 FL (7.4-10.4); MONOCYTES # (AUTO) 0.6 X 10^3 (0.0-1.0); MONOCYTES % (AUTO) 12 % (0-12); NEUTROPHILS # (AUTO) 2.9 X 10^3 (1.8-7.8); NEUTROPHILS % (AUTO) 60 % (42-75); PLATELET COUNT 249 10^3/uL (130-400); RED BLOOD COUNT 4.31 10^6/uL (4.35-5.85); RED CELL DISTRIBUTION WIDTH 15.2 % (10.0-14.5); WHITE BLOOD COUNT 4.8 10^3/uL (4.3-11.0)
[2017-04-10 09:53] LABS: ALBUMIN 3.9 G/DL (3.2-4.5); BILIRUBIN,TOTAL 0.3 MG/DL (0.1-1.0); CALCIUM 9.4 MG/DL (8.5-10.1); CREATININE SERUM 1.18 MG/DL (0.60-1.30); POTASSIUM 4.5 MMOL/L (3.6-5.0); TOTAL PROTEIN 6.7 G/DL (6.4-8.2)
[2017-04-10] MEDS ORDERED: LEUPROLIDE 22.5 MG SYRIN(ELIGARD) SQ SCH (10:30)
== END 2017-05-16 | disposition home or self-care (01) ==
LOC: ONC 09:01
PROVIDERS: ATTEND Internal Medicine Hematology & Oncology
DX: C61 Malignant neoplasm of prostate (principal); R97.21 Rising PSA following treatment for malignant neoplasm of prostate; I12.9 Hypertensive chronic kidney disease with stage 1 through stage 4 chronic kidney disease, or unspecified chronic kidney disease; N18.3 Chronic kidney disease, stage 3 (moderate); E78.5 Hyperlipidemia, unspecified; J44.9 Chronic obstructive pulmonary disease, unspecified; I65.23 Occlusion and stenosis of bilateral carotid arteries; Z86.718 Personal history of other venous thrombosis and embolism; Z79.01 Long term (current) use of anticoagulants; Z79.899 Other long term (current) drug therapy
CPT/HCPCS: 36415; 80053; 84153; 84403; 85025; 96402; 99213; 99214

== ENCOUNTER 2017-07-06 13:38 | Outpatient (RCR) | payer MEDICARE ==
[~2017-07-06 13:38] MED LIST changes: +LEUPROLIDE 22.5 MG SYRIN(ELIGARD) SQ SCH; -LEUPROLIDE ACETATE 7.5 MG ELIGARD SQ SCH
[2017-07-06 14:07] LABS: BASOPHILS % (AUTO) 1 % (0-10); EOSINOPHILS # (AUTO) 0.2 10^3/uL (0.0-0.3); EOSINOPHILS % (AUTO) 3 % (0-10); LYMPHOCYTES # (AUTO) 1.6 X 10^3 (1.0-4.0); LYMPHOCYTES % (AUTO) 28 % (12-44); MEAN CORPUSCULAR HEMOGLOBIN 30 PG (25-34); MEAN CORPUSCULAR HGB CONC 33 G/DL (32-36); MEAN CORPUSCULAR VOLUME 91 FL (80-99); MEAN PLATELET VOLUME 9.6 FL (7.4-10.4); MONOCYTES # (AUTO) 0.6 X 10^3 (0.0-1.0); MONOCYTES % (AUTO) 11 % (0-12); NEUTROPHILS # (AUTO) 3.3 X 10^3 (1.8-7.8); NEUTROPHILS % (AUTO) 58 % (42-75); PLATELET COUNT 231 10^3/uL (130-400); RED BLOOD COUNT 4.19 10^6/uL (4.35-5.85); RED CELL DISTRIBUTION WIDTH 13.8 % (10.0-14.5); WHITE BLOOD COUNT 5.7 10^3/uL (4.3-11.0)
[2017-07-06 14:39] LABS: CREATININE SERUM 1.71 MG/DL (0.60-1.30); POTASSIUM 5.1 MMOL/L (3.6-5.0)
[2017-07-06 14:40] LABS: ALBUMIN 4.1 GM/DL (3.2-4.5); BILIRUBIN,TOTAL 0.5 MG/DL (0.1-1.0); CALCIUM 9.7 MG/DL (8.5-10.1)
== END 2017-07-29 | disposition home or self-care (01) ==
LOC: ONC 13:38
PROVIDERS: ATTEND Internal Medicine Hematology & Oncology
DX: C61 Malignant neoplasm of prostate (principal)
CPT/HCPCS: 80053; 84153; 85025; 96402; 99213

== ENCOUNTER 2017-08-23 19:54 | Inpatient (IN) | payer MEDICARE ==
[~2017-08-23] VITALS: Ht 172.7 cm; Wt 95.8 kg
[~2017-08-23 19:54] MED LIST changes: -LEUPROLIDE 22.5 MG SYRIN(ELIGARD) SQ SCH
[2017-08-23] MEDS ORDERED: ONDANSETRON 4 MG/2 ML (SDV) Z0FRAN IVP ONE (20:00)
[2017-08-23] MEDS ORDERED: NS IV 1000 ML 1,000 ML IV ONE (20:00)
--- OUTSIDE RECORDS SUMMARY | 2017-08-23 20:00 | XMS REPORT | Clinical Summary ---
Author Author [facility] Organization [facility] Address Unknown Phone Unavailable Care Team Providers Care Assistance Coordinator Name Role Phone PCP Unavailable Source Comments Some departments are not documenting in the electronic medical record. If you do not see the information that you expected, contact Release of Information in the Health Information Management department at [phone] for further assistance in locating additional records.[facility] Allergies Active Allergy Reactions Severity Noted Date Comments Penicillins HIVES Medium 08/15/2016 Sulfa (Sulfonamide HIVES Medium 08/15/2016 Antibiotics) Current Medications Prescription Sig. Disp. Refills [...] thrombosis (DVT) of lower extremity (HCC) 08/15/2016 Family History Medical History Relation Name Comments Cancer Father Dizziness Mother Hearing Loss Mother High Cholesterol Mother Relation Name Status Comments Father Mother Social History Tobacco Use Types Packs/Day Years Used Date Never Smoker Smokeless Tobacco: Never Used Alcohol Use Drinks/Week oz/Week Comments No Sex Assigned at Date Recorded Not on file Last Filed Vital Signs Vital Sign Reading Time Taken Blood Pressure 125/79 11/01/2016 1:21 PM CHAIRMAN EMERITUS Pulse 60 11/01/2016 1:21 PM CHAIRMAN [employer] Temperature 36.8 C (98.3 F) 09/30/2016 7:55 AM CHAIRMAN [employer]ERITUS Respiratory Rate - - Oxygen Saturation 97% 09/30/2016 7:55 AM CHAIRMAN [employer] Inhaled Oxygen - - Concentration Weight 101 kg (222 lb 9.6 oz) 11/01/2016 1:21 PM CHAIRMAN [employer]ERITUS Height 165.1 cm (5' 5") 11/01/2016 1:21 PM CHAIRMAN [employer]ERITUS Body Mass Index 37.04 11/01/2016 1:21 PM CHAIRMAN EMERITUS Plan of Treatment Health Maintenance Due Date Last Done Comments PHYSICAL (COMPREHENSIVE) 1947 EXAM PERTUSSIS VACCINE 1950 TETANUS VACCINE 1956 SHINGLES VACCINE 1999 PREVNAR/PNEUMOVAX (#1) 2004 INFLUENZA VACCINE 05/30/2017 Results Not on filefrom Last 3 Months
[2017-08-23 20:21] LABS: BASOPHILS % (AUTO) 0 % (0-10); EOSINOPHILS # (AUTO) 0.1 10^3/uL (0.0-0.3); EOSINOPHILS % (AUTO) 1 % (0-10); LYMPHOCYTES # (AUTO) 1.5 X 10^3 (1.0-4.0); LYMPHOCYTES % (AUTO) 11 % (12-44); MEAN CORPUSCULAR HEMOGLOBIN 31 PG (25-34); MEAN CORPUSCULAR HGB CONC 33 G/DL (32-36); MEAN CORPUSCULAR VOLUME 91 FL (80-99); MEAN PLATELET VOLUME 9.7 FL (7.4-10.4); MONOCYTES # (AUTO) 1.2 X 10^3 (0.0-1.0); MONOCYTES % (AUTO) 9 % (0-12); NEUTROPHILS # (AUTO) 10.5 X 10^3 (1.8-7.8); NEUTROPHILS % (AUTO) 79 % (42-75); PLATELET COUNT 253 10^3/uL (130-400); RED BLOOD COUNT 4.49 10^6/uL (4.35-5.85); WHITE BLOOD COUNT 13.3 10^3/uL (4.3-11.0)
[2017-08-23 20:25] LABS: INR 2.3 (0.8-1.4)
--- NOTE | 2017-08-23 20:35 | Diagnostic Imaging Report ---
INDICATION: Shortness of air with fall EXAMINATION: Chest dated 08/23/2017 COMPARISON: 03/20/2017 FINDINGS: The heart is prominent. The pulmonary vasculature is unremarkable. The apices are poorly evaluated due to patient positioning which appears lordotic. There is likely atelectasis at the left lung base. There may be a small adjacent effusion. There are several left lateral rib fractures in the mid chest, however, these appear to be stable since the previous examination. IMPRESSION: 1. Limited evaluation due to positioning with atelectasis versus mild infiltrate left lung base and a small adjacent effusion 2. Cardiomegaly. Dictated by: Dictated on workstation # [id number]
[2017-08-23 20:44] LABS: ALANINE AMINOTRANSFERASE 28 U/L (0-55); ALBUMIN 4.2 GM/DL (3.2-4.5); AMYLASE 35 U/L (25-125); ANION GAP 12 MMOL/L (5-14); ASPARTATE AMINO TRANSFERASE 29 U/L (5-34); BILIRUBIN,TOTAL 0.3 MG/DL (0.1-1.0); BLOOD UREA NITROGEN 26 MG/DL (7-18); BUN/CREATININE RATIO 13; CALCIUM 9.1 MG/DL (8.5-10.1); CARBON DIOXIDE 25 MMOL/L (21-32); CHLORIDE 104 MMOL/L (98-107); CREATINE KINASE 181 U/L (30-200); CREATININE SERUM 1.96 MG/DL (0.60-1.30); GFR ESTIMATED 33; GLUCOSE 216 MG/DL (70-105); LIPASE 28 U/L (8-78); MAGNESIUM 1.6 MG/DL (1.8-2.4); POTASSIUM 3.7 MMOL/L (3.6-5.0); SODIUM 141 MMOL/L (135-145); TOTAL PROTEIN 7.3 GM/DL (6.4-8.2)
--- NOTE | 2017-08-23 20:45 | Diagnostic Imaging Report ---
PROCEDURE: CT head without contrast. TECHNIQUE: Multiple contiguous axial images were obtained through the brain without the use of intravenous contrast. INDICATION: Fall. Questionable loss of consciousness. EXAMINATION: CT brain without contrast 08/23/2017. COMPARISON: 03/20/2017. FINDINGS: There is no evidence for acute hemorrhage or infarct. No mass, mass effect or midline shift is seen. There is diffuse atrophy similar to previous imaging. There is no hydrocephalus. Chronic ischemic changes are seen in a periventricular distribution. The calvarium is intact. Paranasal sinuses and mastoid air cells demonstrate no evidence for acute disease. IMPRESSION: 1. Chronic changes described. No acute process noted. Dictated by: Dictated on workstation # [id number]
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
[2017-08-23] MEDS ORDERED: LACTATED RINGERS 1,000 ML IV ONE (21:02)
[2017-08-23 21:04] LABS: TROPONIN I < 0.30 NG/ML (<0.30)
--- NOTE | 2017-08-23 22:14 | Diagnostic Imaging Report ---
PROCEDURE: CT chest, abdomen, and pelvis without contrast. TECHNIQUE: Multiple contiguous axial images were obtained through the chest, abdomen, and pelvis without the use of intravenous contrast. INDICATION: Abdominal pain with nausea and vomiting EXAMINATION: CT of the chest, abdomen, and pelvis without contrast dated 08/23/2017 Comparison made to an abdomen and pelvis from 01/16/2017 FINDINGS: Chest: No mediastinal or hilar adenopathy is appreciated. There is diffuse atherosclerotic disease along course of the aorta and its branches. There are no pericardial or pleural effusions appreciated. There is no acute osseous abnormality. Likely old rib fractures noted. Within the lungs, there is no evidence for pneumothorax. There are chronic changes bilaterally. There is no acute osseous abnormality. IMPRESSION FOR THE CHEST: 1. Emphysematous changes within the lungs with chronic findings as above. No acute process. CT abdomen and pelvis: There are multiple cystic lesions within the liver which appear to be cystic in appearance although some are too small to characterize. Significant change from previous imaging is not seen. The gallbladder and spleen appear unremarkable. The adrenal glands are normal. The pancreas demonstrates diffuse atrophy but is otherwise normal as well. There is no free fluid or air in the abdomen. There is a nonobstructive stone in the right kidney. No hydronephrosis is seen on either side. No ureteral stones appreciated. Minimal wall thickening of the urinary bladder is noted which could be due to underdistention but clinical exclusion of cystitis recommended. There are multiple hyperdensities in the prostate perhaps due to previous radiation beads; correlate clinically. No free fluid seen in pelvis. There is some fluid in the colon which could be due to a mild colitis. No surrounding inflammation is seen. There is no free air. Anterior abdominal wall hernia noted containing fat only. Postoperative change throughout the pelvis is noted and uncomplicated in appearance. Postoperative changes throughout the lumbar spine also noted. IMPRESSION: 1. Chronic changes throughout the abdomen and pelvis as well as within the osseous structures as described. Multiple cystic lesions in the liver fairly stable from previous but not well evaluated without contrast and followup with contrast non-emergently could better characterize. 2. Mild wall thickening of the urinary bladder which is likely due to under distention but cystitis could cause a similar appearance. 3. Possible minimal colitis given some fluid in the distal colon. Dictated by: Dictated on workstation # [id number]
[2017-08-23 22:42] LABS: BILIRUBIN,URINE NEGATIVE (NEGATIVE); KETONES,URINE NEGATIVE (NEGATIVE); LEUKOCYTE ESTERASE ,URINE 1+ (NEGATIVE); NITRITE,URINE NEGATIVE (NEGATIVE); PH,URINE 5 (5-9); PROTEIN,URINE 2+ (NEGATIVE); UROBILINOGEN,URINE NORMAL (NORMAL)
--- OUTSIDE RECORDS SUMMARY | 2017-08-23 22:46 | XMS REPORT | Clinical Summary ---
Author Author [facility] Organization [facility] Address Unknown Phone Unavailable Care Team Providers Care Copier Field Service Technician Name Role Phone PCP Unavailable Source Comments Some departments are not documenting in the electronic medical record. If you do not see the information that you expected, contact Release of Information in the Health Information Management department at [phone] for further assistance in locating additional records.[facility] [...] Taken Blood Pressure 125/79 11/01/2016 1:21 PM FOLDING RULES PRINTING MACHINE OPERATOR Pulse 60 11/01/2016 1:21 PM FOLDING RULES PRINTING MACHINE OPERATOR Temperature 36.8 C (98.3 F) 09/30/2016 7:55 AM FOLDING RULES PRINTING MACHINE OPERATOR Respiratory Rate - - Oxygen Saturation 97% 09/30/2016 7:55 AM FOLDING RULES PRINTING MACHINE OPERATOR Inhaled Oxygen - - Concentration Weight 101 kg (222 lb 9.6 oz) 11/01/2016 1:21 PM FOLDING RULES PRINTING MACHINE OPERATOR Height 165.1 cm (5' 5") 11/01/2016 1:21 PM FOLDING RULES PRINTING MACHINE OPERATOR Body Mass Index 37.04 11/01/2016 1:21 PM FOLDING RULES PRINTING MACHINE OPERATOR Plan of Treatment Health Maintenance Due Date Last Done Comments PHYSICAL (COMPREHENSIVE) 1947 EXAM PERTUSSIS VACCINE 1950 TETANUS VACCINE 1956 SHINGLES VACCINE 1999 PREVNAR/PNEUMOVAX (#1) 2004 INFLUENZA VACCINE 05/30/2017 Results Not on filefrom Last 3 Months
[2017-08-23 22:54] LABS: HYALINE CASTS, URINE 25-50 /LPF
[2017-08-23] MEDS ORDERED: D5 1/2 NS 1000 ML IV SOLUTION 1,000 ML IV ONE (23:12)
[2017-08-24] VITALS (11 sets, daily range): BP systolic 88–116; BP diastolic 54–73
[2017-08-24] MEDS ORDERED: D5 1/2 NS 1000 ML IV SOLUTION 1,000 ML IV SCH (00:45)
[2017-08-24] MEDS ORDERED: ONDANSETRON 4 MG/2 ML (SDV) Z0FRAN IV PRN (00:45)
[2017-08-24 03:45] LABS: BASOPHILS % (AUTO) 0 % (0-10); EOSINOPHILS % (AUTO) 0 % (0-10); LYMPHOCYTES # (AUTO) 0.4 X 10^3 (1.0-4.0); LYMPHOCYTES % (AUTO) 5 % (12-44); MEAN CORPUSCULAR HEMOGLOBIN 30 PG (25-34); MEAN CORPUSCULAR HGB CONC 33 G/DL (32-36); MEAN CORPUSCULAR VOLUME 92 FL (80-99); MEAN PLATELET VOLUME 9.7 FL (7.4-10.4); MONOCYTES # (AUTO) 0.5 X 10^3 (0.0-1.0); MONOCYTES % (AUTO) 7 % (0-12); NEUTROPHILS % (AUTO) 87 % (42-75); PLATELET COUNT 195 10^3/uL (130-400); RED BLOOD COUNT 4.05 10^6/uL (4.35-5.85); WHITE BLOOD COUNT 6.8 10^3/uL (4.3-11.0)
[2017-08-24 04:02] LABS: ALBUMIN 3.4 GM/DL (3.2-4.5); BILIRUBIN,TOTAL 0.4 MG/DL (0.1-1.0); CALCIUM 8.2 MG/DL (8.5-10.1); CREATININE SERUM 1.33 MG/DL (0.60-1.30); POTASSIUM 4.3 MMOL/L (3.6-5.0); TOTAL PROTEIN 6.2 GM/DL (6.4-8.2)
[2017-08-24] MEDS ORDERED: NS IV 1000 ML 1,000 ML IV SCH (05:30)
[2017-08-24] MEDS: NS IV 1000 ML 1,000 ML IV SCH ×4 (05:31→20:07)
[2017-08-24] MEDS: PANTOPRAZOLE 40 MG/10 ML (PROTONIX) VIAL IV SCH (09:15)
[2017-08-24] MEDS ORDERED: ALEN70TA47 PO (09:50)
[2017-08-24] MEDS ORDERED: LISI40TA PO (09:50)
[2017-08-24] MEDS ORDERED: AMLO5TAB2 PO (09:50)
[2017-08-24] MEDS ORDERED: LATA2.5D5 OD (09:50)
[2017-08-24] MEDS ORDERED: FURO40TA4 PO (09:50)
[2017-08-24] MEDS ORDERED: FENO160T12 PO (09:50)
[2017-08-24] MEDS ORDERED: ROSU5TAB9 PO (09:50)
[2017-08-24] MEDS ORDERED: WARF-48 PO (09:50)
[2017-08-24] MEDS ORDERED: POTA20TA15 PO (09:50)
[2017-08-24] MEDS ORDERED: BRIN1S OU (10:14)
[2017-08-24] MEDS ORDERED: NEBI5TAB8 PO (10:14)
[2017-08-24] MEDS ORDERED: CINN500C2 PO (10:14)
[2017-08-24] MEDS ORDERED: ASPI-983 PO ×2 (10:14)
[2017-08-24] MEDS ORDERED: TIMO5DRO5 OU (10:14)
[2017-08-24] MEDS ORDERED: OMG1KC PO ×2 (10:14→10:37)
[2017-08-24] MEDS ORDERED: NIAC500T5 PO (10:14)
[2017-08-24] MEDS ORDERED: MULT-35 PO (10:14)
[2017-08-24] MEDS ORDERED: ACET-2267 PO (10:25)
--- NOTE | 2017-08-24 10:32 | History & Physical-Hospitalist ---
HPI History of Present Illness: HPI/Chief Complaint Pt is a 76yoCM with a PMH HTN, HLD, prostate CA who presents to the ER with complaints of profuse diarrhea and vomiting. His symptoms started yesterday when he started to have chills and diarrhea. He continued to have countless stools throughout the day that were watery. was concerned that is was due to some old potato salad he had eaten. Last night he began to vomit as well. He continued to vomit and have diarrhea and then had a syncopal episode in the bathroom which prompted to call EMS. He had another syncopal episode when EMS arrived. He reports feeling better this AM but still having profuse diarrhea. He denies abd pain and requests a diet. Source: patient Date Seen 08/24/17 Time Seen by Provider: 07:15 Attending Physician Louis Casanova MD PCP Louis Casanova MD Referring Physician Date of Admission Aug 23, 2017 at 10:43 pm Home Medications & Allergies Home Medications Reviewed patient Home Medication Reconciliation Form Allergies Allergies Coded Allergies Penicillins (Unverified Allergy, Mild, 09/22/09) Sulfa (Sulfonamide Antibiotics) (Unverified Allergy, Mild, 09/22/09) Past Rcdodko-Ohwpwl-Vvzqbh Hx Patient Social History Marrital Status: Alcohol Use: Denies Use Recreational Drug Use: No Smoking Status: Never a Smoker 2nd Hand Smoke Exposure: No Physical Abuse Screen: No Sexual Abuse: No Recent Foreign Travel: No Contact w/other who traveled: No Recent Hopitalizations: No Recent Infectious Disease Expo: No Immunizations Up To Date Tetanus Booster (TDap): Unknown Date of Influenza Vaccine: Aug 01, 2017 Seasonal Allergies Seasonal Allergies: No Surgeries Yes (APPY,BACK SURG.,[id number]-FT/ORIF; WRIST FX/REPAIRED; LEFT FOREARM FX/ORIF;PHILIP FILTER; PROSTATE SURGERY/RADIATION IMPLANTS FOR CANCER) Appendectomy, Orthopedic (pelvis fracture, hip fx, spine surgery), Tonsillectomy Respiratory No Cardiovascular Yes ("FAULKNER THICKENING", & TACHYCARDIA; BILATERAL LEG DVT'S --NO COUMADIN FOR YEARS) Deep Vein Thrombosis, High Cholesterol, Hypertension, Irregular Heartbeat Neurological Yes TIA Reproductive System Hx Reproductive Disorders: No Sexually Transmitted Disease: No Genitourinary Yes (PROSTATE CANCER) Prostate Problems Gastrointestinal No Musculoskeletal Yes (X2 STRESS FX'S SINCE SURGERY SET.16,2009;MULTIPLE FRACTURES FROM ACCIDENT IN 2008; BACK SURGERY, WRIST SURGERIES) Chronic Back Pain, Fractures Endocrine History of Endocrine Disorders: No (PARATHYROIDECTOMY PARTIAL) HEENT History of HEENT Disorders: No Cancer Yes (PROSTATE CANCER DX 2009) Prostate Did You Recieve Any Treatments: Yes (42 RADIATION TREATMENTS; RADIATION IMPLANTS; HORMONE SHOTS FOR PROSTATE CANCER SINCE 03/14/17--FOR ELEVATED PSA) Type of Treatment: Chemotherapy, Radiation Psychosocial History of Psychiatric Problem: Yes Behavioral Health Disorders: Anxiety Integumentary History of Skin or Integumenta: No Blood Transfusions History of Blood Disorders: Yes (BILATERAL DVT'S --ON COUMADIN FOR YEARS) Family Medical History Significant Family History: No Pertinent Family Hx Review of Systems Constitutional: chills, No fever EENTM: No blurred vision, No double vision, No nose congestion, No throat pain Respiratory: No cough, No dyspnea on exertion, No short of breath Cardiovascular: No chest pain, No edema, No palpitations Gastrointestinal: No abdominal pain, No constipation, diarrhea, No loss of appetite, nausea, vomiting Genitourinary: No dysuria, No frequency Musculoskeletal: No joint pain, No muscle pain Skin: No lesions, No rash Psychiatric/Neurological: Denies Headache, Denies Numbness, Denies Tingling Physical Exam Physical Exam Vital Signs Vital Sign - Last 12Hours 08/23/17 19:55 Temp 97.7 Pulse 89 Resp 18 B/P (MAP) 100/49 Pulse Ox 93 O2 Delivery Nasal Cannula O2 Flow Rate 2.00 Capillary Refill : Less Than 3 Seconds General Appearance: No Apparent Distress, WD/WN HEENT: PERRL/EOMI, No Scleral Icterus (L), No Scleral Icterus (R) Neck: Non Tender, Supple Respiratory: Lungs Clear, No Respiratory Distress Cardiovascular: Regular Rate, Rhythm, No Murmur Gastrointestinal: Normal Bowel Sounds, Non Tender, Soft, No Distended, No Guarding, No Rebound Extremity: Normal Capillary Refill, No Calf Tenderness Neurologic/Psychiatric: Alert, Oriented x3, Normal Mood/Affect Skin: Normal Color, Warm/Dry Results Results/Procedures Lab Laboratory Tests 08/23/17 20:00 08/24/17 03:35 08/25/17 07:[address] CHEST/ABD/PELVIS IMPRESSION: 1. Chronic changes throughout the abdomen and pelvis as well as within the osseous structures as described. Multiple cystic lesions in the liver fairly stable from previous but not well evaluated without contrast and followup with contrast non-emergently could better characterize. 2. Mild wall thickening of the urinary bladder which is likely due to under distention but cystitis could cause a similar appearance. 3. Possible minimal colitis given some fluid in the distal colon. CT HEAD WO PROCEDURE: CT head without contrast. TECHNIQUE: Multiple contiguous axial images were obtained through the brain without the use of intravenous contrast. INDICATION: Fall. Questionable loss of consciousness. EXAMINATION: CT brain without contrast 08/23/2017. COMPARISON: 03/20/2017. FINDINGS: There is no evidence for acute hemorrhage or infarct. No mass, mass effect or midline shift is seen. There is diffuse atrophy similar to previous imaging. There is no hydrocephalus. Chronic ischemic changes are seen in a periventricular distribution. The calvarium is intact. Paranasal sinuses and mastoid air cells demonstrate no evidence for acute disease. IMPRESSION: 1. Chronic changes described. No acute process noted. INDICATION: Shortness of air with fall EXAMINATION: Chest dated 08/23/2017 COMPARISON: 03/20/2017 FINDINGS: The heart is prominent. The pulmonary vasculature is unremarkable. The apices are poorly evaluated due to patient positioning which appears lordotic. There is likely atelectasis at the left lung base. There may be a small adjacent effusion. There are several left lateral rib fractures in the mid chest, however, these appear to be stable since the previous examination. IMPRESSION: 1. Limited evaluation due to positioning with atelectasis versus mild infiltrate left lung base and a small adjacent effusion 2. Cardiomegaly. Assessment/Plan Admission Diagnosis Hypovolemia Diagnosis/Problems Diagnosis/Problems (1) Hypovolemia due to dehydration Status: Acute Assessment & Plan: Gastroenteritis likely CT shows colitis Will check c diff Continue IVF BP still low but maintaining MAP >60 currently (2) Acute on chronic renal failure Status: Resolved Assessment & Plan: Raw Material Planner improved to 1.33 this AM Continue IVF Trend Avoid nephrotoxic drugs as able Qualifiers: Qualified Codes: N17.9 - Acute kidney failure, unspecified; N18.9 - Chronic kidney disease, unspecified (3) Gastroenteritis Status: Acute Assessment & Plan: Likely source of hypovolemia C diff ordered (4) Syncopal episodes Status: Resolved Assessment & Plan: From hypovolemia Fluid resuscitate Orthostatics tomorrow when closer to normovolemic status Qualifiers: Qualified Codes: R55 - Syncope and collapse (5) Essential (primary) hypertension Status: Chronic Assessment & Plan: Hold antihypertensives due to hypotension (6) Normocytic anemia Status: Chronic Assessment & Plan: Mild, at baseline FOBT + but likely due to acute illness Will need colonoscopy as outpatient if due (7) Prostate cancer Status: Chronic Assessment & Plan: Recurrent, on Lupron Reportedly stable now (8) Warfarin anticoagulation Status: Chronic Assessment & Plan: 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
[2017-08-24] MEDS ORDERED: CHOL5000 PO (10:37)
[2017-08-24] MEDS ORDERED: ACETAMINOPHEN 500 MG TAB (TYLENOL) PO PRN (11:00)
[2017-08-24] MEDS: DORZOLAMIDE 2% 10 ML BTL (TRUSOPT) OU SCH ×2 (12:51→21:00)
[2017-08-24] MEDS ORDERED: ROSUVASTATIN 5 MG (CRESTOR) TABLET PO SCH (21:00)
[2017-08-24] MEDS ORDERED: LATANOPROST 0.005% (XALATAN) OPHTH SOLN 2.5 ML OD SCH (21:00)
[2017-08-25 00:40] VITALS: BP 97/74
[2017-08-25] MEDS: NS IV 1000 ML 1,000 ML IV SCH (02:58)
[2017-08-25 04:30] VITALS: BP 115/76
[2017-08-25 07:54] LABS: BASOPHILS % (AUTO) 0 % (0-10); EOSINOPHILS # (AUTO) 0.1 10^3/uL (0.0-0.3); EOSINOPHILS % (AUTO) 3 % (0-10); LYMPHOCYTES # (AUTO) 0.8 X 10^3 (1.0-4.0); LYMPHOCYTES % (AUTO) 19 % (12-44); MEAN CORPUSCULAR HEMOGLOBIN 30 PG (25-34); MEAN CORPUSCULAR HGB CONC 32 G/DL (32-36); MEAN CORPUSCULAR VOLUME 94 FL (80-99); MEAN PLATELET VOLUME 9.6 FL (7.4-10.4); MONOCYTES # (AUTO) 0.5 X 10^3 (0.0-1.0); MONOCYTES % (AUTO) 11 % (0-12); NEUTROPHILS # (AUTO) 2.9 X 10^3 (1.8-7.8); NEUTROPHILS % (AUTO) 68 % (42-75); PLATELET COUNT 158 10^3/uL (130-400); RED BLOOD COUNT 3.78 10^6/uL (4.35-5.85); RED CELL DISTRIBUTION WIDTH 14.5 % (10.0-14.5); WHITE BLOOD COUNT 4.3 10^3/uL (4.3-11.0)
[2017-08-25 08:00] VITALS: BP 141/81
[2017-08-25 08:10] LABS: INR 1.7 (0.8-1.4)
[2017-08-25 08:12] LABS: ANION GAP 5 MMOL/L (5-14); BLOOD UREA NITROGEN 13 MG/DL (7-18); BUN/CREATININE RATIO 12; CALCIUM 7.5 MG/DL (8.5-10.1); CARBON DIOXIDE 24 MMOL/L (21-32); CHLORIDE 112 MMOL/L (98-107); CREATININE SERUM 1.06 MG/DL (0.60-1.30); GFR ESTIMATED > 60; GLUCOSE 112 MG/DL (70-105); POTASSIUM 3.9 MMOL/L (3.6-5.0); SODIUM 141 MMOL/L (135-145)
--- NOTE | 2017-08-25 08:50 | Discharge Summary-Hospitalist ---
Diagnosis/Chief Complaint Date of Admission Aug 23, 2017 at 22:43 Date of Discharge Discharge Date: Aug 25, 2017 Admission Diagnosis Hypovolemia Discharge Diagnosis (1) Hypovolemia due to dehydration Status: Acute Assessment & Plan: Gastroenteritis likely CT shows colitis C diff negative BP much improved (2) Acute on chronic renal failure Status: Resolved Assessment & Plan: Associate Professor Of Sociology improved to 1.06 (3) Gastroenteritis Status: Acute Assessment & Plan: Likely source of hypovolemia C diff negative 1 BM last night (4) Syncopal episodes Status: Resolved Assessment & Plan: From hypovolemia s/p Fluid resuscitation (5) Essential (primary) hypertension Status: Chronic Assessment & Plan: Holding meds currently will give hold parameters (6) Normocytic anemia Status: Chronic Assessment & Plan: Mild, at baseline FOBT + but likely due to acute illness Will need colonoscopy as outpatient if due (7) Prostate cancer Status: Chronic Assessment & Plan: Recurrent, on Lupron Reportedly stable now (8) Warfarin anticoagulation Status: Chronic Assessment & Plan: 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 FOBt +, likely due to gastroenteritis Hemoglobin remains at his baseline I discussed with his PCP on need for follow up CBC next week and likely need for colonoscopy (9) Prophylactic measure Assessment & Plan: Warfarin Discharge Summary Discharge Physical Examination Allergies: Coded Allergies: Penicillins (Unverified Allergy, Mild, 09/22/09) Sulfa (Sulfonamide Antibiotics) (Unverified Allergy, Mild, 09/22/09) Vitals & I&Os Vital Signs Date Time Temp Pulse Resp B/P (MAP) Pulse Ox O2 Delivery O2 Flow Rate FiO2 08/25/17 08:40 95 08/25/17 08:00 96.4 20 141/81 99 Nasal Cannula 2.00 Hospital Course Pt presented to the ER following a syncopal episode and was found to be very hypotensive from profuse diarrhea. He was admited to cardiac stepdown and fluid resuscitated. He symptoms improved dramatically. C diff was checked and was negative. On Day 2 of admission he was able to tolerate a diet and diarrhea had essentially resolved. He was discharged home in stable condition. Labs (last 24 hrs) Laboratory Tests 08/24/17 08:50: Lactic Acid Level 1.30 08/25/17 07:36: White Blood Count 4.3, Red Blood Count 3.78L, Hemoglobin 11.3L, Hematocrit 36L, Mean Corpuscular Volume 94, Mean Corpuscular Hemoglobin 30, Mean Corpuscular Hemoglobin Concent 32, Red Cell Distribution Width 14.5, Platelet Count 158, Mean Platelet Volume 9.6, Neutrophils (%) (Auto) 68, Lymphocytes (%) (Auto) 19, Monocytes (%) (Auto) 11, Eosinophils (%) (Auto) 3, Basophils (%) (Auto) 0, Neutrophils # (Auto) 2.9, Lymphocytes # (Auto) 0.8L, Monocytes # (Auto) 0.5, Eosinophils # (Auto) 0.1, Basophils # (Auto) 0.0, Prothrombin Time 20.0H, INR Comment 1.7H, Sodium Level 141, Potassium Level 3.9, Chloride Level 112H, Carbon Dioxide Level 24, Anion Gap 5, Blood Urea Nitrogen 13, Creatinine 1.06, Estimat Glomerular Filtration Rate > 60, BUN/Creatinine Ratio 12, Glucose Level 112H, Calcium Level 7.5L Microbiology 08/24/17 C. difficile [facility] Antigen & Toxins - Final, Complete Pending Labs Laboratory Tests 08/25/17 07:36: White Blood Count 4.3, Red Blood Count 3.78, Hemoglobin 11.3, Hematocrit 36, Mean Corpuscular Volume 94, Mean Corpuscular Hemoglobin 30, Mean Corpuscular Hemoglobin Concent 32, Red Cell Distribution Width 14.5, Platelet Count 158, Mean Platelet Volume 9.6, Neutrophils (%) (Auto) 68, Lymphocytes (%) (Auto) 19, Monocytes (%) (Auto) 11, Eosinophils (%) (Auto) 3, Basophils (%) (Auto) 0, Neutrophils # (Auto) 2.9, Lymphocytes # (Auto) 0.8, Monocytes # (Auto) 0.5, Eosinophils # (Auto) 0.1, Basophils # (Auto) 0.0, Prothrombin Time 20.0, INR Comment 1.7, Sodium Level 141, Potassium Level 3.9, Chloride Level 112, Carbon Dioxide Level 24, Anion Gap 5, Blood Urea Nitrogen 13, Creatinine 1.06, Estimat Glomerular Filtration Rate > 60, BUN/Creatinine Ratio 12, Glucose Level 112, Calcium Level 7.5 Discussion & Recommendations FOBT testing was negative but his hemoglobin remained near his baseline the entire stay despite receiving over 7L of IVF. He will need follow up as an outpatient as he remains on warfarin for history of recurrent DVT. Discharge Home Medications: Active Scripts Active Reported Fish Oil 1,000 mg Capsule ([place] 3 Polyunsat Fatty Acids) 1,000 Mg Cap 2,000 Mg PO HS Vitamin D3 (Cholecalciferol (Vitamin D3)) 5,000 Unit Capsule 5,000 Unit PO FR Tylenol Extra Strength (Acetaminophen) 500 Mg Tablet 500-1,000 Mg PO Q6H PRN Bystolic (Nebivolol HCl) 5 Mg Tablet 5 Mg PO DAILY Timolol Maleate 0.5% (Timolol Maleate) 5 Ml Drops 1 Drop OU DAILY Azopt (Brinzolamide) 10 Ml Btl 1 Drop OU BID Fish Oil 1,000 mg Capsule ([place] 3 Polyunsat Fatty Acids) 1,000 Mg Cap 1,000 Mg PO DAILY Slo-Niacin (Niacin) 500 Mg Tablet.er 500 Mg PO HS Aspirin EC (Aspirin) 81 Mg Tablet.dr 81 Mg PO HS Cinnamon (Cinnamon Bark) 500 Mg Capsule 500 Mg PO DAILY Daily Multiple Vitamin (Multivitamin) 1 Each Tablet 1 Tab PO DAILY Latanoprost 2.5 Ml Drops 1 Drop OD HS Alendronate Sodium 70 Mg Tablet 70 Mg PO FR Fenofibrate 160 Mg Tablet 160 Mg PO DAILY Rosuvastatin Calcium 5 Mg Tablet 5 Mg PO HS Potassium Chloride 20 Meq Tab.er.prt 20 Meq PO DAILY Amlodipine Besylate 5 Mg Tablet 2.5 Mg PO DAILY TAKES 1/2 (5MG) TABLET Furosemide 40 Mg Tablet 40 Mg PO MOWEFR Warfarin Sodium 5 Mg Tablet 5 Mg PO HS Lisinopril 40 Mg Tablet 40 Mg PO DAILY Instructions to patient/family Please see electronic discharge instructions given to patient. Clinical Quality Measures DVT/VTE Risk/Contraindication: Risk Factor Score Per Nursin RFS Level Per Nursing on Admit: 4+=Very High Copy Copies To 1: JUAREZ MAGALLANES MD Problem Qualifiers (1) Acute on chronic renal failure: Acute renal failure type: unspecified Chronic kidney disease stage: unspecified stage Qualified Codes: N17.9 - Acute kidney failure, unspecified; N18.9 - Chronic kidney disease, unspecified (2) Syncopal episodes: Syncope type: unspecified Qualified Codes: R55 - Syncope and collapse LEDY SHAFER MD Aug 25, 2017 08:49
[2017-08-25] MEDS ORDERED: TIMOLOL MALEATE 0.5% 5 ML (TIMOPTIC) BTL OU SCH (09:00)
[2017-08-25] MEDS: PANTOPRAZOLE 40 MG/10 ML (PROTONIX) VIAL IV SCH (09:06)
[2017-08-25] MEDS: DORZOLAMIDE 2% 10 ML BTL (TRUSOPT) OU SCH (09:07)
== END 2017-08-25 09:45 | disposition home or self-care (01) | DRG 641 ==
LOC: EDUNIT# 19:54 → ER 19:55 → ICU 22:43
PROVIDERS: ADMIT Internal Medicine; ATTEND Internal Medicine
DX: E86.1 Hypovolemia (principal); E86.0 Dehydration; K52.9 Noninfective gastroenteritis and colitis, unspecified; N17.9 Acute kidney failure, unspecified; I12.9 Hypertensive chronic kidney disease with stage 1 through stage 4 chronic kidney disease, or unspecified chronic kidney disease; N18.9 Chronic kidney disease, unspecified; R55 Syncope and collapse; D64.9 Anemia, unspecified; C61 Malignant neoplasm of prostate; Z79.01 Long term (current) use of anticoagulants; Z86.718 Personal history of other venous thrombosis and embolism; E78.00 Pure hypercholesterolemia, unspecified; Z92.3 Personal history of irradiation; Z92.21 Personal history of antineoplastic chemotherapy; F41.9 Anxiety disorder, unspecified; E83.42 Hypomagnesemia; R73.9 Hyperglycemia, unspecified
CPT/HCPCS: 36415; 70450; 71010; 71250; 74176; 80048; 80053; 81000; 82150; 82274; 82550; 82553; 82962; 83605; 83690; 83735; 83880; 84443; 84484; 85025; 85610; 85730; 87040; 87045; 87046; 87324; 87449; 93005; 93041; 96361; 96374

== ENCOUNTER 2017-11-10 13:04 | Outpatient (RCR) | payer MEDICARE ==
[2017-09-28 13:46] LABS: BASOPHILS % (AUTO) 0 % (0-10); EOSINOPHILS # (AUTO) 0.2 10^3/uL (0.0-0.3); EOSINOPHILS % (AUTO) 3 % (0-10); HEMATOCRIT 38 % (40-54); HEMOGLOBIN 12.6 G/DL (13.3-17.7); LYMPHOCYTES # (AUTO) 2.1 X 10^3 (1.0-4.0); LYMPHOCYTES % (AUTO) 29 % (12-44); MEAN CORPUSCULAR HEMOGLOBIN 30 PG (25-34); MEAN CORPUSCULAR HGB CONC 33 G/DL (32-36); MEAN CORPUSCULAR VOLUME 91 FL (80-99); MONOCYTES # (AUTO) 0.8 X 10^3 (0.0-1.0); MONOCYTES % (AUTO) 10 % (0-12); NEUTROPHILS # (AUTO) 4.1 X 10^3 (1.8-7.8); NEUTROPHILS % (AUTO) 57 % (42-75); PLATELET COUNT 232 10^3/uL (130-400); WHITE BLOOD COUNT 7.3 10^3/uL (4.3-11.0)
[2017-09-28 14:04] LABS: ALBUMIN 3.9 GM/DL (3.2-4.5); BILIRUBIN,TOTAL 0.2 MG/DL (0.1-1.0); CALCIUM 9.6 MG/DL (8.5-10.1); CREATININE SERUM 1.17 MG/DL (0.60-1.30); POTASSIUM 4.8 MMOL/L (3.6-5.0); TOTAL PROTEIN 7.2 GM/DL (6.4-8.2)
[~2017-11-10 13:04] MED LIST changes: +ACET-2267 PO; +ALEN70TA47 PO; +AMLO5TAB2 PO; +ASPI-983 PO; +BRIN1S OU; +CHOL5000 PO; +CINN500C2 PO; +FENO160T12 PO; +FURO40TA4 PO; +LATA2.5D5 OD; +LEUPROLIDE 22.5 MG SYRIN(ELIGARD) SQ SCH; +LISI40TA PO; +MULT-35 PO; +NEBI5TAB8 PO; +NIAC500T5 PO; +OMG1KC PO; +POTA20TA15 PO; +ROSU5TAB11 PO; +TIMO5DRO5 OU; +WARF-48 PO
== END 2017-11-13 | disposition home or self-care (01) ==
LOC: ONC 13:04
PROVIDERS: ATTEND Internal Medicine Hematology & Oncology
DX: Z51.0 Encounter for antineoplastic radiation therapy (principal); C61 Malignant neoplasm of prostate; R97.21 Rising PSA following treatment for malignant neoplasm of prostate; I12.9 Hypertensive chronic kidney disease with stage 1 through stage 4 chronic kidney disease, or unspecified chronic kidney disease; N18.3 Chronic kidney disease, stage 3 (moderate); E78.5 Hyperlipidemia, unspecified; J44.9 Chronic obstructive pulmonary disease, unspecified; I65.23 Occlusion and stenosis of bilateral carotid arteries; Z86.718 Personal history of other venous thrombosis and embolism; Z79.01 Long term (current) use of anticoagulants; Z79.899 Other long term (current) drug therapy
CPT/HCPCS: 36415; 77290; 77295; 77300; 77332; 77334; 77336; 80053; 84153; 85025; 96402; 99213; 99214

== ENCOUNTER 2018-01-16 14:07 | Outpatient (RCR) | payer MEDICARE ==
[2017-12-21 13:24] LABS: BASOPHILS % (AUTO) 1 % (0-10); EOSINOPHILS # (AUTO) 0.3 10^3/uL (0.0-0.3); EOSINOPHILS % (AUTO) 5 % (0-10); HEMATOCRIT 36 % (40-54); LYMPHOCYTES # (AUTO) 1.3 X 10^3 (1.0-4.0); LYMPHOCYTES % (AUTO) 27 % (12-44); MEAN CORPUSCULAR HEMOGLOBIN 30 PG (25-34); MEAN CORPUSCULAR HGB CONC 33 G/DL (32-36); MEAN CORPUSCULAR VOLUME 90 FL (80-99); MONOCYTES # (AUTO) 0.5 X 10^3 (0.0-1.0); MONOCYTES % (AUTO) 10 % (0-12); NEUTROPHILS # (AUTO) 2.8 X 10^3 (1.8-7.8); NEUTROPHILS % (AUTO) 57 % (42-75); PLATELET COUNT 198 10^3/uL (130-400); RED BLOOD COUNT 4.01 10^6/uL (4.35-5.85); RED CELL DISTRIBUTION WIDTH 13.8 % (10.0-14.5)
[2017-12-21 13:41] LABS: ALBUMIN 3.8 GM/DL (3.2-4.5); BILIRUBIN,TOTAL 0.3 MG/DL (0.1-1.0); CREATININE SERUM 1.24 MG/DL (0.60-1.30); POTASSIUM 4.9 MMOL/L (3.6-5.0); TOTAL PROTEIN 6.7 GM/DL (6.4-8.2)
[~2018-01-16 14:07] MED LIST changes: -BICA50TA; +BICA50TA5; -ROSU5TAB11 PO; +ROSU5TAB12 PO
== END 2018-02-12 | disposition home or self-care (01) ==
LOC: ONC 14:07
PROVIDERS: ATTEND Internal Medicine Hematology & Oncology
DX: Z51.0 Encounter for antineoplastic radiation therapy (principal); C61 Malignant neoplasm of prostate; R97.21 Rising PSA following treatment for malignant neoplasm of prostate; I12.9 Hypertensive chronic kidney disease with stage 1 through stage 4 chronic kidney disease, or unspecified chronic kidney disease; N18.3 Chronic kidney disease, stage 3 (moderate); E78.5 Hyperlipidemia, unspecified; J44.9 Chronic obstructive pulmonary disease, unspecified; I65.23 Occlusion and stenosis of bilateral carotid arteries; Z86.718 Personal history of other venous thrombosis and embolism; Z79.01 Long term (current) use of anticoagulants; Z79.899 Other long term (current) drug therapy
CPT/HCPCS: 36415; 77336; 80053; 84153; 85025; 96402; 99213

== ENCOUNTER 2018-06-07 14:49 | Outpatient (RCR) | payer MEDICARE ==
[2018-03-13 13:48] LABS: BASOPHILS % (AUTO) 1 % (0-10); EOSINOPHILS # (AUTO) 0.2 10^3/uL (0.0-0.3); EOSINOPHILS % (AUTO) 3 % (0-10); HEMATOCRIT 39 % (40-54); HEMOGLOBIN 12.8 G/DL (13.3-17.7); LYMPHOCYTES # (AUTO) 1.9 X 10^3 (1.0-4.0); LYMPHOCYTES % (AUTO) 32 % (12-44); MEAN CORPUSCULAR HEMOGLOBIN 30 PG (25-34); MEAN CORPUSCULAR HGB CONC 33 G/DL (32-36); MEAN CORPUSCULAR VOLUME 91 FL (80-99); MEAN PLATELET VOLUME 9.5 FL (7.4-10.4); MONOCYTES # (AUTO) 0.6 X 10^3 (0.0-1.0); MONOCYTES % (AUTO) 10 % (0-12); NEUTROPHILS # (AUTO) 3.2 X 10^3 (1.8-7.8); NEUTROPHILS % (AUTO) 54 % (42-75); PLATELET COUNT 210 10^3/uL (130-400); RED BLOOD COUNT 4.31 10^6/uL (4.35-5.85); RED CELL DISTRIBUTION WIDTH 14.2 % (10.0-14.5); WHITE BLOOD COUNT 5.9 10^3/uL (4.3-11.0)
[2018-03-13 14:16] LABS: ALBUMIN 4.2 GM/DL (3.2-4.5); BILIRUBIN,TOTAL 0.3 MG/DL (0.1-1.0); CALCIUM 9.5 MG/DL (8.5-10.1); CREATININE SERUM 1.43 MG/DL (0.60-1.30); POTASSIUM 4.9 MMOL/L (3.6-5.0); TOTAL PROTEIN 6.9 GM/DL (6.4-8.2)
[2018-05-31 15:42] LABS: BASOPHILS % (AUTO) 1 % (0-10); EOSINOPHILS # (AUTO) 0.2 10^3/uL (0.0-0.3); EOSINOPHILS % (AUTO) 3 % (0-10); HEMATOCRIT 38 % (40-54); HEMOGLOBIN 12.3 G/DL (13.3-17.7); LYMPHOCYTES # (AUTO) 1.9 X 10^3 (1.0-4.0); LYMPHOCYTES % (AUTO) 33 % (12-44); MEAN CORPUSCULAR HEMOGLOBIN 30 PG (25-34); MEAN CORPUSCULAR HGB CONC 33 G/DL (32-36); MEAN CORPUSCULAR VOLUME 92 FL (80-99); MEAN PLATELET VOLUME 9.5 FL (7.4-10.4); MONOCYTES # (AUTO) 0.5 X 10^3 (0.0-1.0); MONOCYTES % (AUTO) 9 % (0-12); NEUTROPHILS % (AUTO) 54 % (42-75); PLATELET COUNT 222 10^3/uL (130-400); RED BLOOD COUNT 4.13 10^6/uL (4.35-5.85); RED CELL DISTRIBUTION WIDTH 14.4 % (10.0-14.5); WHITE BLOOD COUNT 5.6 10^3/uL (4.3-11.0)
[2018-05-31 16:12] LABS: ALBUMIN 4.2 GM/DL (3.2-4.5); BILIRUBIN,TOTAL 0.3 MG/DL (0.1-1.0); CALCIUM 10.1 MG/DL (8.5-10.1); CREATININE SERUM 1.33 MG/DL (0.60-1.30); POTASSIUM 5.1 MMOL/L (3.6-5.0)
== END 2018-06-11 | disposition home or self-care (01) ==
LOC: ONC 14:49
PROVIDERS: ATTEND Internal Medicine Hematology & Oncology
DX: C61 Malignant neoplasm of prostate (principal); R97.21 Rising PSA following treatment for malignant neoplasm of prostate; I12.9 Hypertensive chronic kidney disease with stage 1 through stage 4 chronic kidney disease, or unspecified chronic kidney disease; N18.3 Chronic kidney disease, stage 3 (moderate); E78.5 Hyperlipidemia, unspecified; J44.9 Chronic obstructive pulmonary disease, unspecified; I65.23 Occlusion and stenosis of bilateral carotid arteries; Z86.718 Personal history of other venous thrombosis and embolism; Z79.01 Long term (current) use of anticoagulants; Z79.899 Other long term (current) drug therapy
CPT/HCPCS: 36415; 80053; 84153; 85025; 96402

== ENCOUNTER 2018-08-30 13:45 | Outpatient (RCR) | payer MEDICARE ==
[2018-08-22 13:34] LABS: BASOPHILS % (AUTO) 1 % (0-10); EOSINOPHILS # (AUTO) 0.2 10^3/uL (0.0-0.3); EOSINOPHILS % (AUTO) 3 % (0-10); HEMATOCRIT 40 % (40-54); LYMPHOCYTES # (AUTO) 1.8 X 10^3 (1.0-4.0); LYMPHOCYTES % (AUTO) 31 % (12-44); MEAN CORPUSCULAR HEMOGLOBIN 30 PG (25-34); MEAN CORPUSCULAR HGB CONC 33 G/DL (32-36); MEAN CORPUSCULAR VOLUME 91 FL (80-99); MEAN PLATELET VOLUME 9.7 FL (7.4-10.4); MONOCYTES # (AUTO) 0.6 X 10^3 (0.0-1.0); MONOCYTES % (AUTO) 10 % (0-12); NEUTROPHILS # (AUTO) 3.2 X 10^3 (1.8-7.8); NEUTROPHILS % (AUTO) 55 % (42-75); PLATELET COUNT 241 10^3/uL (130-400); RED BLOOD COUNT 4.37 10^6/uL (4.35-5.85); RED CELL DISTRIBUTION WIDTH 14.3 % (10.0-14.5); WHITE BLOOD COUNT 5.9 10^3/uL (4.3-11.0)
[2018-08-22 13:54] LABS: ALBUMIN 4.4 GM/DL (3.2-4.5); BILIRUBIN,TOTAL 0.3 MG/DL (0.1-1.0); CALCIUM 9.9 MG/DL (8.5-10.1); CREATININE SERUM 1.54 MG/DL (0.60-1.30); POTASSIUM 4.7 MMOL/L (3.6-5.0); TOTAL PROTEIN 7.4 GM/DL (6.4-8.2)
[~2018-08-30 13:45] MED LIST changes: -AMLO5TAB2 PO; +AMLO5TAB7 PO
[2018-11-08] MEDS ORDERED: CYCL10TA9 PO (15:42)
[2018-11-08] MEDS ORDERED: PRD20T PO (15:42)
[2018-11-15 11:01] LABS: BASOPHILS % (AUTO) 1 % (0-10); EOSINOPHILS # (AUTO) 0.1 10^3/uL (0.0-0.3); EOSINOPHILS % (AUTO) 2 % (0-10); HEMATOCRIT 39 % (40-54); HEMOGLOBIN 12.1 G/DL (13.3-17.7); LYMPHOCYTES # (AUTO) 1.5 X 10^3 (1.0-4.0); LYMPHOCYTES % (AUTO) 29 % (12-44); MEAN CORPUSCULAR HEMOGLOBIN 29 PG (25-34); MEAN CORPUSCULAR HGB CONC 31 G/DL (32-36); MEAN CORPUSCULAR VOLUME 93 FL (80-99); MEAN PLATELET VOLUME 9.1 FL (7.4-10.4); MONOCYTES # (AUTO) 0.7 X 10^3 (0.0-1.0); MONOCYTES % (AUTO) 13 % (0-12); NEUTROPHILS # (AUTO) 2.9 X 10^3 (1.8-7.8); NEUTROPHILS % (AUTO) 56 % (42-75); PLATELET COUNT 209 10^3/uL (130-400); RED BLOOD COUNT 4.14 10^6/uL (4.35-5.85); RED CELL DISTRIBUTION WIDTH 14.1 % (10.0-14.5); WHITE BLOOD COUNT 5.2 10^3/uL (4.3-11.0)
[2018-11-15 11:20] LABS: BILIRUBIN,TOTAL 0.4 MG/DL (0.1-1.0); CALCIUM 9.3 MG/DL (8.5-10.1); CREATININE SERUM 1.24 MG/DL (0.60-1.30); POTASSIUM 4.8 MMOL/L (3.6-5.0); TOTAL PROTEIN 6.7 GM/DL (6.4-8.2)
== END 2018-11-15 10:46 | disposition home or self-care (01) ==
LOC: ONC 13:45
PROVIDERS: ATTEND Internal Medicine Hematology & Oncology
DX: C61 Malignant neoplasm of prostate (principal); R97.21 Rising PSA following treatment for malignant neoplasm of prostate; I12.9 Hypertensive chronic kidney disease with stage 1 through stage 4 chronic kidney disease, or unspecified chronic kidney disease; N18.3 Chronic kidney disease, stage 3 (moderate); E78.5 Hyperlipidemia, unspecified; J44.9 Chronic obstructive pulmonary disease, unspecified; I65.23 Occlusion and stenosis of bilateral carotid arteries; Z86.718 Personal history of other venous thrombosis and embolism; Z79.01 Long term (current) use of anticoagulants; Z79.899 Other long term (current) drug therapy
CPT/HCPCS: 36415; 80053; 84153; 85025; 96402

== ENCOUNTER 2018-11-08 14:00 | Emergency (ER) | payer MEDICARE ==
[~2018-11-08] VITALS: Ht 172.7 cm; Wt 106.1 kg
[~2018-11-08 14:00] MED LIST changes: -LEUPROLIDE 22.5 MG SYRIN(ELIGARD) SQ SCH
--- OUTSIDE RECORDS SUMMARY | 2018-11-08 14:38 | XMS REPORT | Clinical Summary ---
Author Author [facility] Organization [facility] Address Unknown Phone Unavailable Care Team Providers Care Core Driller Helper Name Role Phone Louis Casanova MD PCP Source Comments Some departments are not documenting in the electronic medical record. If you do not see the information that you expected, contact Release of Information in the Health Information Management department at [phone] for further assistance in locating additional records.[facility] Allergies Comments Active Allergy Reactions Severity Noted Date Penicillins HIVES Medium 08/15/2016 Sulfa (Sulfonamide HIVES Medium 08/15/2016 Antibiotics) Medications End Date Status Medication Sig Dispensed Refills Start Date Active fenofibrate(+) (TRIGLIDE) Take 160 mg 0 160 mg tablet by mouth daily. Take with food. Active lisinopril (PRINIVIL, Take 40 mg by 0 ZESTRIL) 40 mg tablet mouth daily. Active amLODIPine (NORVASC) 5 mg Take 5 mg by 0 tablet mouth daily. Active furosemide (LASIX) 40 mg Take 40 mg by 0 tablet mouth every morning. Active potassium chloride SR Take 20 mEq 0 (K-DUR) 20 mEq tablet by mouth daily. Take with a meal and a full glass of water. Active nebivolol (BYSTOLIC) 5 mg Take 5 mg by 0 tablet mouth daily. Active alendronate 70 mg tbef Take by 0 mouth every 7 days. Active CINNAMON BARK (CINNAMON Take 500 mg 0 PO) by mouth. Active rosuvastatin (CRESTOR) 5 Take 5 mg by 0 mg tablet mouth four times weekly. Active aspirin 81 mg chewable Chew 81 mg by 0 tablet mouth at bedtime daily. Take with food. Active timolol (TIMOPTIC) 0.5 % 1 Drop once. 0 ophthalmic solution Active brinzolamide(+) (AZOPT) 1 1 Drop twice 0 % ophthalmic suspension daily. Active fish oil /omega-3 fatty Take 1 Cap by 0 acids (SEA-OMEGA) mouth twice 340/1000 mg capsule daily. Active Cinnamon Bark 500 mg cap Take 1 Cap by 0 mouth daily. Active niacin ER (NIASPAN) 500 Take 500 mg 0 mg tablet by mouth at bedtime daily. Take with food. Active latanoprost (XALATAN) Place 1 Drop 0 0.005 % ophthalmic into or solution around eye(s) at bedtime daily. 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/15/2016 History of osteoporosis 08/15/2016 Deep vein thrombosis (DVT) of lower extremity 08/15/2016 Family History Medical History Relation Name Comments Cancer Father Dizziness Mother Hearing Loss Mother High Cholesterol Mother Relation Name Status Comments Father Mother Social History Date Tobacco Use Types Packs/Day Years Used Never Smoker Smokeless Tobacco: Never Used Alcohol Use Drinks/Week oz/Week Comments No Sex Assigned at Date Recorded Not on file Industry Job Start Date Occupation Not on file Not on file Not on file Travel End Travel History Travel Start No recent travel history available. Last Filed Vital Signs Time Taken Vital Sign Reading 11/01/2016 1:21 PM [employer]CARE WORK[employer] Blood Pressure 125/79 11/01/2016 1:21 PM [employer] WORKER Pulse 60 09/30/2016 7:55 AM DAYCARE WORKER Temperature 36.8 C (98.3 F) - Respiratory Rate - 09/30/2016 7:55 AM DAYCARE WORKER Oxygen Saturation 97% - Inhaled Oxygen - Concentration 11/01/2016 1:21 PM DAYCARE WORKER Weight 101 kg (222 lb 9.6 oz) 11/01/2016 1:21 PM DAYCARE WORKER Height 165.1 cm (5' 5") 11/01/2016 1:21 PM DAYCARE WORKER Body Mass Index 37.04 Plan of Treatment Health Maintenance Due Date Last Done Comments PHYSICAL (COMPREHENSIVE) 1947 EXAM DTAP/TDAP VACCINES (1 - 1957 Tdap) SHINGLES RECOMBINANT 1989 VACCINE (1 of 2) PNEUMONIA (PCV13/PPSV23) 2004 VACCINES (1 of 2 - PCV13) INFLUENZA VACCINE 05/30/2018 Results Not on filefrom Last 3 Months Insurance Payer Benefit Subscriber ID Type Phone Address Plan / Group MEDICARE MEDICARE xxxxxxxxxx Medicare PART A AND B BCBS BCBS xxxxxxxxxxxx Medicare SUPPLEMENT Advance Directives Patient has advance care planning documents, and code status on file. For more information, please contact: [facility] [address] [facility] [address] [place] [address] Date Inactivated Comments Code Status Date Activated 09/30/2016 10:46 AM Full Code 09/29/2016 1:58 PM Provider has discussed Code Status No, more discussion w/Patient or Family? needed
--- OUTSIDE RECORDS SUMMARY | 2018-11-08 14:40 | XMS REPORT | Continuity of Care Document ---
Author Author [facility] Organization [facility] Address Unknown Phone Unavailable Allergies Active Description Code Type Severity Reaction Onset Reported/Identified Relationship to Patient Clinical Status Yes Penicillins [id number] Drug Allergy Mild N/A 09/22/2009 Yes Sulfa (Sulfonamide Antibiotics) [id number] Drug Allergy Mild N/A 2008 Medications There is no data. Problems Date Dx Coded Attending Type Code [...] 06/25/2015 EVIE ADAMS MD Ot 573.8 06/25/2015 INDY GARZA, ERIKA Hebert Ot 185 06/25/2015 INDY GARZA, ERIKA Hebert Ot 185 06/25/2015 INDY GARZA, ERIKA Hebert Ot 185 06/25/2015 INDY GARZA, ERIKA E Ot 185 06/25/2015 ERIKA PUTNAM MD E Ot 185 07/16/2015 EVEI ADAMS MD Ot 272.4 07/16/2015 EVIE ADAMS MD Ot 401.9 07/16/2015 EVIE ADAMS MD Ot 433.10 07/16/2015 EVIE ADAMS MD Ot 453.40 07/18/2015 JUSTIN MADDOX ACCOUNTING ASSISTANT Ot 496 CHR AIRWAY OBSTRUCT NEC 07/18/2015 JUSTIN MADDOX ACCOUNTING ASSISTANT Ot 593.9 RENAL URETERAL DIS NOS 07/18/2015 JUSTIN MADDOX ACCOUNTING ASSISTANT Ot 780.79 OTH MALAISE FATIGUE 07/18/2015 JUSTIN MADDOX ACCOUNTING ASSISTANT Ot 787.91 DIARRHEA 07/18/2015 JUSTIN MADDOX ACCOUNTING ASSISTANT Ot J44.9 CHRONIC OBSTRUCTIVE PULMONARY DISEASE, U 07/18/2015 JUSTIN MADDOX ACCOUNTING ASSISTANT Ot N28.9 DISORDER OF KIDNEY AND URETER, UNSPECIFI 07/18/2015 JUSTIN MADDOX ACCOUNTING ASSISTANT Ot R19.7 DIARRHEA, UNSPECIFIED 07/18/2015 JUSTIN MADDOX ACCOUNTING ASSISTANT Ot R53.1 WEAKNESS 07/18/2015 JUSTIN MADDOX ACCOUNTING ASSISTANT Ot V58.61 ANTICOAGULANTS,LT,CURRENT USE 07/18/2015 JUSTIN MADDOX ACCOUNTING ASSISTANT Ot Z79.01 CARE HOME (CURRENT) USE OF ANTICOAGULANT 07/24/2015 EVIE ADAMS [...] MD Ot 573.8 LIVER DISORDERS NEC 03/04/2016 EIRKA PUTNAM MD Ot 185 MALIGN NEOPL PROSTATE 03/04/2016 ERIKA PUTNAM MD, Ot 185 MALIGN NEOPL PROSTATE 03/04/2016 ERIKA PUTNAM MD, Ot 185 MALIGN NEOPL PROSTATE 03/04/2016 ERIKA PUTNAM MD, Ot 185 MALIGN NEOPL PROSTATE 03/04/2016 ERIKA PUTNAM MD, Ot 185 MALIGN NEOPL PROSTATE 03/04/2016 EVIE ADAMS MD Ot 272.4 HYPERLIPIDEMIA NEC/NOS 03/04/2016 EVIE ADAMS MD Ot 401.9 HYPERTENSION NOS 03/04/2016 EVIE ADAMS MD Ot 433.10 CAROTID ARTERY OCCLUSION W O CEREBRAL IN 03/04/2016 EVIE ADAMS MD Ot 453.40 ACUTE VENOUS EMBOLISM THROMBOSIS UNSP 03/04/2016 ERIKA PUTNAM MD, Ot C61 MALIGNANT NEOPLASM OF PROSTATE 03/04/2016 LING REYES MD, Ot S46.001A UNSP INJ MUSC/TEND THE ROTATOR CUFF OF R 03/04/2016 LING REYES MD Ot X58.XXXA EXPOSURE TO OTHER SPECIFIED FACTORS, INI 03/04/2016 LING REYES MD Ot Y92.017 GARDEN OR YARD IN SINGLE-FAMILY (PRIVATE 03/04/2016 LING REYES MD Ot Y93.H2 ACTIVITY, GARDENING AND LANDSCAPING 03/04/2016 LING REYES MD Ot Y99.8 OTHER EXTERNAL CAUSE STATUS 03/07/2016 LING REYES MD Ot S46.001A UNSP INJ MUSC/TEND THE ROTATOR CUFF OF R 03/07/2016 LING REYES MD Ot X58.XXXA EXPOSURE TO OTHER SPECIFIED FACTORS, INI 03/07/2016 LING REYES MD Ot Y92.017 GARDEN OR YARD IN SINGLE-FAMILY (PRIVATE 03/07/2016 LING REYES MD, Ot Y93.H2 ACTIVITY, GARDENING AND LANDSCAPING 03/07/2016 LING REYES MD Ot Y99.8 OTHER EXTERNAL CAUSE STATUS 03/30/2016 Ot V58.61 ANTICOAGULANTS,LT,CURRENT USE 03/30/2016 Ot V58.83 ENCOUNTER FOR THERAPEUTIC DRUG MONITORIN 03/30/2016 Ot 453.40 ACUTE VENOUS EMBOLISM THROMBOSIS UNSP 03/30/2016 Ot V58.61 ANTICOAGULANTS,LT,CURRENT USE 04/14/2016 ERIKA PUTNAM MD Ot C61 MALIGNANT NEOPLASM OF PROSTATE 04/14/2016 [...] MAGALLANES MD Ot E20.9 HYPOPARATHYROIDISM, UNSPECIFIED 08/01/2016 ELPIDIO GARZA, JUAREZ Kimble Ot M85.80 OTH DISRD OF BONE DENSITY AND STRUCTURE, 08/18/2016 JUAREZ MAGALLANES MD Ot E20.9 HYPOPARATHYROIDISM, UNSPECIFIED 08/18/2016 JUAREZ MAGALLANES MD Ot M85.80 OTH DISRD OF BONE DENSITY AND STRUCTURE, 08/30/2016 Ot V58.61 ANTICOAGULANTS,LT,CURRENT USE 08/30/2016 Ot V58.83 ENCOUNTER FOR THERAPEUTIC DRUG MONITORIN 09/29/2016 Ot 453.40 ACUTE VENOUS EMBOLISM THROMBOSIS UNSP 09/29/2016 Ot V58.61 ANTICOAGULANTS,LT,CURRENT USE 10/17/2016 ERIKA PUTNAM MD, Ot C61 MALIGNANT NEOPLASM OF PROSTATE 10/24/2016 DL BOTELLO MD Ot N28.9 DISORDER OF KIDNEY AND URETER, UNSPECIFI 10/24/2016 DL BOTELLO MD Ot R11.2 NAUSEA WITH VOMITING, UNSPECIFIED 10/24/2016 DL BOTELLO MD Ot R19.7 DIARRHEA, UNSPECIFIED 10/24/2016 DL BOTELLO MD Ot Z79.899 OTHER CARE HOME (CURRENT) DRUG THERAPY 10/26/2016 DL BOTELLO MD Ot N28.9 DISORDER OF KIDNEY AND URETER, UNSPECIFI 10/26/2016 DL BOTELLO MD Ot R11.2 NAUSEA WITH VOMITING, UNSPECIFIED 10/26/2016 DL BOTELLO MD Ot R19.7 DIARRHEA, UNSPECIFIED 10/26/2016 DL BOTELLO MD Ot Z79.899 OTHER CARE HOME (CURRENT) DRUG THERAPY 11/22/2016 ERIKA PUTNAM MD Ot C61 MALIGNANT NEOPLASM OF PROSTATE 01/12/2017 ERIKA PUTNAM MD Ot C61 MALIGNANT NEOPLASM OF PROSTATE 01/13/2017 ERIKA PUTNAM MD Ot C61 MALIGNANT NEOPLASM OF PROSTATE 01/16/2017 Ot 185 MALIGN NEOPL PROSTATE 01/16/2017 Ot 185 MALIGN NEOPL PROSTATE 01/16/2017 Ot 185 MALIGN NEOPL PROSTATE 01/16/2017 Ot 185 MALIGN NEOPL PROSTATE 01/16/2017 ANGIE GARZA, EVIE Aguilar Ot 272.4 HYPERLIPIDEMIA NEC/NOS 01/16/2017 EVIE ADAMS MD Ot 401.9 HYPERTENSION NOS 01/16/2017 EVIE ADAMS MD Ot 573.8 LIVER DISORDERS NEC 01/16/2017 ERIKA PUTNAM MD E Ot 185 MALIGN NEOPL PROSTATE 01/16/2017 ERIKA PUTNAM MD E Ot 185 MALIGN NEOPL PROSTATE 01/16/2017 ERIKA PUTNAM MD Ot 185 MALIGN NEOPL PROSTATE 01/16/2017 ERIKA PUTNAM MD Ot 185 MALIGN NEOPL PROSTATE 01/16/2017 ERIKA PUTNAM MD Ot 185 MALIGN NEOPL PROSTATE 01/16/2017 EVIE [...] NEOPLASM OF PROSTATE 01/17/2017 JOSHUA HICKS, RODERICK MATOS Ot C61 MALIGNANT NEOPLASM OF PROSTATE 01/17/2017 JOSHUA HICKS, RODERICK Dan SENIOR SALES OPERATIONS ANALYST Ot C61 MALIGNANT NEOPLASM OF PROSTATE 01/22/2017 JOSHUA HICKS, RODERICK Dan SENIOR SALES OPERATIONS ANALYST Ot C61 MALIGNANT NEOPLASM OF PROSTATE 02/01/2017 [...] MD Ot 185 MALIGN NEOPL PROSTATE 02/01/2017 KLAUDIA PUTNAM MDANE E Ot 185 MALIGN NEOPL PROSTATE 02/01/2017 INDY GARZA, ERIKA Hebert Ot 185 MALIGN NEOPL PROSTATE 02/01/2017 ERIKA PUTNAM MD Ot 185 MALIGN NEOPL PROSTATE 02/01/2017 ANGIE GARZA, EVIE Aguilar Ot 272.4 HYPERLIPIDEMIA NEC/NOS 02/01/2017 EVIE ADAMS MD Ot 401.9 HYPERTENSION NOS 02/01/2017 EVIE ADAMS MD Ot 433.10 CAROTID ARTERY OCCLUSION W O CEREBRAL IN 02/01/2017 EVIE ADAMS MD Ot 453.40 ACUTE VENOUS EMBOLISM THROMBOSIS UNSP 02/01/2017 INDY GARZA, ERIKA Hebert Ot C61 MALIGNANT NEOPLASM OF PROSTATE 02/01/2017 ELPIDIO GARZA, JUAREZ Kimble Ot E20.9 HYPOPARATHYROIDISM, UNSPECIFIED 02/01/2017 ELPIDIO GARZA, JUAREZ Kimble Ot M85.80 OTH DISRD OF BONE DENSITY AND STRUCTURE, 02/01/2017 JOSHUA HICKS, RODERICK MATOS Ot C61 MALIGNANT NEOPLASM OF PROSTATE 02/01/2017 MARI WHITLOCK Ot C61 MALIGNANT NEOPLASM OF PROSTATE 02/02/2017 RICHI-LEELEE PA, KASSIDY K Ot E78.2 MIXED HYPERLIPIDEMIA 02/02/2017 RICHI-LEELEE PA, KASSIDY K Ot I10 ESSENTIAL (PRIMARY) HYPERTENSION 02/02/2017 RICHI-LEELEE PA, KASSIDY K Ot 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 02/02/2017 RICHI-LEELEE PA, KASSIDY K Ot R06.02 SHORTNESS OF BREATH 02/07/2017 RICHI-LEELEE PA, KASSIDY K Ot E78.2 MIXED HYPERLIPIDEMIA 02/07/2017 RICHI-LEELEE PA, KASSIDY K Ot I10 ESSENTIAL (PRIMARY) HYPERTENSION 02/07/2017 RICHI-LEELEE PA, KASSIDY K Ot 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 02/07/2017 RICHI-LEELEE PA, KASSIDY K Ot R06.02 SHORTNESS OF BREATH 02/08/2017 JOSHUA HICKS, RODERICK MATOS Ot C61 MALIGNANT NEOPLASM OF PROSTATE 02/16/2017 MARI WHITLOCK Ot C61 MALIGNANT NEOPLASM OF PROSTATE 02/17/2017 RODERICK LEWIS RN Ot C61 MALIGNANT NEOPLASM OF PROSTATE 02/21/2017 JUAREZ MAGALLANES MD Ot M25.551 PAIN IN RIGHT HIP 03/06/2017 KARISSA PA, KASSIDY K Ot E78.2 MIXED HYPERLIPIDEMIA 03/06/2017 STODDARD-LEELEE PA, KASSIDY K Ot I10 ESSENTIAL (PRIMARY) HYPERTENSION 03/06/2017 KARISSA PA, KASSIDY K Ot 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 03/06/2017 STODDARDLEELEE PA, KASSIDY K Ot R06.02 SHORTNESS OF BREATH 03/08/2017 RICHI-LEELEE PA, KASSIDY K Ot E78.2 MIXED HYPERLIPIDEMIA 03/08/2017 STODDARD-LEELEE PA, KASSIDY K Ot I10 ESSENTIAL (PRIMARY) HYPERTENSION 03/08/2017 RICHI-LEELEE PA, KASSIDY K Ot 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 03/08/2017 STODDARD-LEELEE PA, KASSIDY K Ot R06.02 SHORTNESS OF BREATH 03/10/2017 MARI WHITLOCK Ot C61 MALIGNANT NEOPLASM OF PROSTATE 03/13/2017 JUAREZ MAGALLANES MD Ot M25.551 PAIN IN RIGHT HIP 03/16/2017 JUAREZ MAGALLANES MD Ot M25.551 PAIN IN RIGHT HIP 03/20/2017 SUJATHA DO, GABE K Ot C61 MALIGNANT NEOPLASM OF PROSTATE 03/20/2017 SUJATHA DO, GABE K Ot E78.00 PURE HYPERCHOLESTEROLEMIA, UNSPECIFIED 03/20/2017 SUJATHA DO, GABE K Ot F41.9 ANXIETY DISORDER, UNSPECIFIED 03/20/2017 SUJATHA DO, GABE K Ot I10 ESSENTIAL (PRIMARY) HYPERTENSION 03/20/2017 SUJATHA DO, GABE K Ot I42.9 CARDIOMYOPATHY, UNSPECIFIED 03/20/2017 SUJATHA DO, GABE K Ot M54.9 DORSALGIA, UNSPECIFIED 03/20/2017 SUJATHA DO, GABE K Ot N28.9 DISORDER OF KIDNEY AND URETER, UNSPECIFI 03/20/2017 SUJATHA DO GABE K Ot R42 DIZZINESS AND GIDDINESS 03/28/2017 MARI WHITLOCK Ot C61 MALIGNANT NEOPLASM OF PROSTATE 04/04/2017 MARI WHITLOCK Ot C61 MALIGNANT NEOPLASM OF PROSTATE 05/16/2017 MARI WHITLOCK Ot C61 MALIGNANT NEOPLASM OF PROSTATE 05/16/2017 CHINYERE, BOBAN N Ot E78.5 HYPERLIPIDEMIA, UNSPECIFIED 05/16/2017 MARI WHITLOCK N Ot I12.9 HYPERTENSIVE CHRONIC KIDNEY DISEASE W ST 05/16/2017 MARI WHITLOCK N Ot 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 05/16/2017 MARI WHITLOCK N Ot J44.9 CHRONIC OBSTRUCTIVE PULMONARY DISEASE, U 05/16/2017 MARI WHITLOCK N Ot N18.3 CHRONIC KIDNEY DISEASE, STAGE 3 (MODERAT 05/16/2017 CHINYEREMARI RODGERS N Ot R97.21 RISING PSA FOL TREATMENT FOR MALIGNANT N 05/16/2017 CHINYEREMARI RODGERS N Ot Z79.01 CARE HOME (CURRENT) USE OF ANTICOAGULANT 05/16/2017 CHINYERE, BOBAN N Ot Z79.899 OTHER TELEMETRY TECH (CURRENT) DRUG THERAPY 05/16/2017 CHINYERE BOBAN N Ot Z86.718 PERSONAL HISTORY OF OTHER VENOUS THROMBO 07/05/2017 CHINYERE BOBAN N Ot C61 MALIGNANT NEOPLASM OF PROSTATE 07/07/2017 CHINYERE BOBOLMAN N Ot C61 MALIGNANT NEOPLASM OF PROSTATE 07/29/2017 CHINYERE BOBOLMAN N Ot C61 MALIGNANT NEOPLASM OF PROSTATE 08/16/2017 CHINYERE, BOBOLMAN N Ot C61 MALIGNANT NEOPLASM OF PROSTATE 08/16/2017 MARI WHITLOCK N Ot E78.5 HYPERLIPIDEMIA, UNSPECIFIED 08/16/2017 MARI WHITLOCK N Ot I12.9 HYPERTENSIVE CHRONIC KIDNEY DISEASE W ST 08/16/2017 MARI WHITLOCK N Ot 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 08/16/2017 MARI WHITLOCK N Ot J44.9 CHRONIC OBSTRUCTIVE PULMONARY DISEASE, U 08/16/2017 MARI WHITLOCK N Ot N18.3 CHRONIC KIDNEY DISEASE, STAGE 3 (MODERAT 08/16/2017 CHINYEREMARI RODGERS N Ot R97.21 RISING PSA FOL TREATMENT FOR MALIGNANT N 08/16/2017 CHINYEREMARI RODGERS N Ot Z79.01 TELEMETRY TECH (CURRENT) USE OF ANTICOAGULANT 08/16/2017 CHINYERE BOBAN N Ot Z79.899 OTHER CARE HOME (CURRENT) DRUG THERAPY 08/16/2017 CHINYERE BOBAN N Ot Z86.718 PERSONAL HISTORY OF OTHER VENOUS THROMBO 08/25/2017 ELPIDIO GARZA, JUAREZ Kimble Ot C61 MALIGNANT NEOPLASM OF PROSTATE 08/25/2017 JUAREZ MAGALLANES MD Ot D64.9 ANEMIA, UNSPECIFIED 08/25/2017 JUAREZ MAGALLANES MD Ot E78.00 PURE HYPERCHOLESTEROLEMIA, UNSPECIFIED 08/25/2017 JUAREZ MAGALLANES MD Ot E83.42 HYPOMAGNESEMIA 08/25/2017 JUAREZ MAGALLANES MD Ot E86.0 DEHYDRATION 08/25/2017 JUAREZ MAGALLANES MD Ot E86.1 HYPOVOLEMIA 08/25/2017 JUAREZ MAGALLANES MD Ot F41.9 ANXIETY DISORDER, UNSPECIFIED 08/25/2017 JUAREZ MAGALLANES MD Ot I12.9 HYPERTENSIVE CHRONIC KIDNEY DISEASE W ST 08/25/2017 JUAREZ MAGALLANES MD, Ot K52.9 NONINFECTIVE GASTROENTERITIS AND COLITIS 08/25/2017 JUAREZ MAGALLANES MD, Ot N17.9 ACUTE KIDNEY FAILURE, UNSPECIFIED 08/25/2017 JUAREZ MAGALLANES MD, Ot N18.9 CHRONIC KIDNEY DISEASE, UNSPECIFIED 08/25/2017 JUAREZ MAGALLANES MD Ot R55 SYNCOPE AND COLLAPSE 08/25/2017 JUAREZ MAGALLANES MD Ot R73.9 HYPERGLYCEMIA, UNSPECIFIED 08/25/2017 JUAREZ MAGALLANES MD Ot Z79.01 CARE HOME (CURRENT) USE OF ANTICOAGULANT 08/25/2017 JUAREZ MAGALLANES MD Ot Z86.718 PERSONAL HISTORY OF OTHER VENOUS THROMBO 08/25/2017 JUAREZ MAGALLANES MD Ot Z92.21 PERSONAL HISTORY OF ANTINEOPLASTIC CHEMO 08/25/2017 JUAREZ MAGALLANES MD Ot Z92.3 PERSONAL HISTORY OF IRRADIATION 09/22/2017 MARI WHITLOCK Ot C61 MALIGNANT NEOPLASM OF PROSTATE 09/22/2017 MARI WHITLOCK Ot E78.5 HYPERLIPIDEMIA, UNSPECIFIED 09/22/2017 MARI WHITLOCK Ot I12.9 HYPERTENSIVE CHRONIC KIDNEY DISEASE W ST 09/22/2017 MARI WHITLOCK Ot 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 09/22/2017 MARI WHITLOCK Ot J44.9 CHRONIC OBSTRUCTIVE PULMONARY DISEASE, U 09/22/2017 MARI WHITLOCK Ot N18.3 CHRONIC KIDNEY DISEASE, STAGE 3 (MODERAT 09/22/2017 MARI WHITLOCK Ot R97.21 RISING PSA FOL TREATMENT FOR MALIGNANT N 09/22/2017 MARI WHITLOCK Ot Z79.01 TELEMETRY TECH (CURRENT) USE OF ANTICOAGULANT 09/22/2017 MARI WHITLOCK N Ot Z79.899 OTHER CARE HOME (CURRENT) DRUG THERAPY 09/22/2017 MARI WHITLOCK N Ot Z86.718 PERSONAL HISTORY OF OTHER VENOUS THROMBO 09/28/2017 MARI WHITLOCK Ot C61 MALIGNANT NEOPLASM OF PROSTATE 09/28/2017 MARI WHITLOCK Ot E78.5 HYPERLIPIDEMIA, UNSPECIFIED 09/28/2017 MARI WHITLOCK N Ot I12.9 HYPERTENSIVE CHRONIC KIDNEY DISEASE W ST 09/28/2017 MARI WHITLOCK N Ot 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 09/28/2017 MARI WHITLOCK N Ot J44.9 CHRONIC OBSTRUCTIVE PULMONARY DISEASE, U 09/28/2017 MARI WHITLOCK N Ot N18.3 CHRONIC KIDNEY DISEASE, STAGE 3 (MODERAT 09/28/2017 MARI WHITLOCK N Ot R97.21 RISING PSA FOL TREATMENT FOR MALIGNANT N 09/28/2017 MARI WHITLOCK N Ot Z79.01 TELEMETRY TECH (CURRENT) USE OF ANTICOAGULANT 09/28/2017 MARI WHITLOCK N Ot Z79.899 OTHER CARE HOME (CURRENT) DRUG THERAPY 09/28/2017 MARI WHITLOCK N Ot Z86.718 PERSONAL HISTORY OF OTHER VENOUS THROMBO 10/24/2017 MARI WHITLOCK Ot C61 MALIGNANT NEOPLASM OF PROSTATE 10/24/2017 MARI WHITLOCK N Ot E78.5 HYPERLIPIDEMIA, UNSPECIFIED 10/24/2017 MARI WHITLOCK N Ot I12.9 HYPERTENSIVE CHRONIC KIDNEY DISEASE W ST 10/24/2017 MARI WHITLOCK N Ot 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 10/24/2017 MARI WHITLOCK N Ot J44.9 CHRONIC OBSTRUCTIVE PULMONARY DISEASE, U 10/24/2017 MARI WHITLOCK N Ot N18.3 CHRONIC KIDNEY DISEASE, STAGE 3 (MODERAT 10/24/2017 MARI WHITLOCK N Ot R97.21 RISING PSA FOL TREATMENT FOR MALIGNANT N 10/24/2017 MARI WHITLOCK N Ot Z79.01 CARE HOME (CURRENT) USE OF ANTICOAGULANT 10/24/2017 MARI WHITLOCK N Ot Z79.899 OTHER TELEMETRY TECH (CURRENT) DRUG THERAPY 10/24/2017 MARI WHITLOCK N Ot Z86.718 PERSONAL HISTORY OF OTHER VENOUS THROMBO 11/13/2017 MARI WHITLOCK N Ot C61 MALIGNANT NEOPLASM OF PROSTATE 11/13/2017 MARI WHITLOCK N Ot E78.5 HYPERLIPIDEMIA, UNSPECIFIED 11/13/2017 MARI WHITLOCK N Ot I12.9 HYPERTENSIVE CHRONIC KIDNEY DISEASE W ST 11/13/2017 MARI WHITLOCK N Ot 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 11/13/2017 MARI WHITLOCK N Ot J44.9 CHRONIC OBSTRUCTIVE PULMONARY DISEASE, U 11/13/2017 MARI WHITLOCK N Ot N18.3 CHRONIC KIDNEY DISEASE, STAGE 3 (MODERAT 11/13/2017 MARI WHITLOCK N Ot R97.21 RISING PSA FOL TREATMENT FOR MALIGNANT N 11/13/2017 MARI WHITLOCK N Ot Z51.0 ENCOUNTER FOR ANTINEOPLASTIC RADIATION T 11/13/2017 MARI WHITLOCK N Ot Z79.01 TELEMETRY TECH (CURRENT) USE OF ANTICOAGULANT 11/13/2017 CHINYERE DANICAOLMAN N Ot Z79.899 OTHER CARE HOME (CURRENT) DRUG THERAPY 11/13/2017 MARI WHITLOCK N Ot Z86.718 PERSONAL HISTORY OF OTHER VENOUS THROMBO 11/15/2017 MARI WHITLOCK N Ot C61 MALIGNANT NEOPLASM OF PROSTATE 11/15/2017 MARI WHITLOCK N Ot E78.5 HYPERLIPIDEMIA, UNSPECIFIED 11/15/2017 MARI WHITLOCK N Ot I12.9 HYPERTENSIVE CHRONIC KIDNEY DISEASE W ST 11/15/2017 MARI WHITLOCK N Ot 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 11/15/2017 MARI WHITLOCK N Ot J44.9 CHRONIC OBSTRUCTIVE PULMONARY DISEASE, U 11/15/2017 MARI WHITLOCK N Ot N18.3 CHRONIC KIDNEY DISEASE, STAGE 3 (MODERAT 11/15/2017 MARI WHITLOCK N Ot R97.21 RISING PSA FOL TREATMENT FOR MALIGNANT N 11/15/2017 MARI WHITLOCK N Ot Z79.01 TELEMETRY TECH (CURRENT) USE OF ANTICOAGULANT 11/15/2017 MARI WHITLOCK N Ot Z79.899 OTHER CARE HOME (CURRENT) DRUG THERAPY 11/15/2017 MARI WHITLOCK N Ot Z86.718 PERSONAL HISTORY OF OTHER VENOUS THROMBO 11/19/2017 MARI WHITLOCK N Ot C61 MALIGNANT NEOPLASM OF PROSTATE 11/19/2017 MARI WHITLOCK N Ot E78.5 HYPERLIPIDEMIA, UNSPECIFIED 11/19/2017 MARI WHITLOCK Adalberto Ot I12.9 HYPERTENSIVE CHRONIC KIDNEY DISEASE W ST 11/19/2017 MARI WHITLOCK Adalberto Ot 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 11/19/2017 MARI WHITLOCK Adalberto Ot J44.9 CHRONIC OBSTRUCTIVE PULMONARY DISEASE, U 11/19/2017 MARI WHITLOCK Adalberto Ot N18.3 CHRONIC KIDNEY DISEASE, STAGE 3 (MODERAT 11/19/2017 CHINYERE DANICAOLMAN Adalberto Ot R97.21 RISING PSA FOL TREATMENT FOR MALIGNANT N 11/19/2017 CHINYERE MARI Glover Ot Z51.0 ENCOUNTER FOR ANTINEOPLASTIC RADIATION T 11/19/2017 CHINYEREMARI Ot Z79.01 CARE HOME (CURRENT) USE OF ANTICOAGULANT 11/19/2017 CHINYEREMARI Ot Z79.899 OTHER TELEMETRY TECH (CURRENT) DRUG THERAPY 11/19/2017 CHINYEREMARI Ot Z86.718 PERSONAL HISTORY OF OTHER VENOUS THROMBO 12/22/2017 CHINYEREMARI Ot C61 MALIGNANT NEOPLASM OF PROSTATE 12/22/2017 CHINYEREMARI Ot E78.5 HYPERLIPIDEMIA, UNSPECIFIED 12/22/2017 CHINYERE MARI Glover Ot I12.9 HYPERTENSIVE CHRONIC KIDNEY DISEASE W ST 12/22/2017 MARI WHITLOCK Adalberto Ot 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 12/22/2017 MARI WHITLOCK Adalberto Ot J44.9 CHRONIC OBSTRUCTIVE PULMONARY DISEASE, U 12/22/2017 MARI WHITLOCK Adalberto Ot N18.3 CHRONIC KIDNEY DISEASE, STAGE 3 (MODERAT 12/22/2017 CHINYERE DANICAOLMAN Adalberto Ot R97.21 RISING PSA FOL TREATMENT FOR MALIGNANT N 12/22/2017 CHINYERE MARI Glover Ot Z79.01 TELEMETRY TECH (CURRENT) USE OF ANTICOAGULANT 12/22/2017 CHINYEREMARI Ot Z79.899 OTHER TELEMETRY TECH (CURRENT) DRUG THERAPY 12/22/2017 CHINYEREMARI N Ot Z86.718 PERSONAL HISTORY OF OTHER VENOUS THROMBO 01/24/2018 CHINYEREMARI Ot C61 MALIGNANT NEOPLASM OF PROSTATE 01/24/2018 CHINYEREMARI Ot E78.5 HYPERLIPIDEMIA, UNSPECIFIED 01/24/2018 CHINYEREMARI Ot I12.9 HYPERTENSIVE CHRONIC KIDNEY DISEASE W ST 01/24/2018 MARI WHITLOCK N Ot 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 01/24/2018 MARI WHITLOCK N Ot J44.9 CHRONIC OBSTRUCTIVE PULMONARY DISEASE, U 01/24/2018 MARI WHITLOCK N Ot N18.3 CHRONIC KIDNEY DISEASE, STAGE 3 (MODERAT 01/24/2018 MARI WHITLOCK N Ot R97.21 RISING PSA FOL TREATMENT FOR MALIGNANT N 01/24/2018 MARI WHITLOCK N Ot Z79.01 CARE HOME (CURRENT) USE OF ANTICOAGULANT 01/24/2018 MARI WHITLOCK N Ot Z79.899 OTHER CARE HOME (CURRENT) DRUG THERAPY 01/24/2018 MARI WHITLOCK N Ot Z86.718 PERSONAL HISTORY OF OTHER VENOUS THROMBO 02/12/2018 MARI WHITLOCK N Ot C61 MALIGNANT NEOPLASM OF PROSTATE 02/12/2018 MARI WHITLOCK N Ot E78.5 HYPERLIPIDEMIA, UNSPECIFIED 02/12/2018 MARI WHITLOCK N Ot I12.9 HYPERTENSIVE CHRONIC KIDNEY DISEASE W ST 02/12/2018 MARI WHITLOCK N Ot 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 02/12/2018 MARI WHITLOCK N Ot J44.9 CHRONIC OBSTRUCTIVE PULMONARY DISEASE, U 02/12/2018 MARI WHITLOCK N Ot N18.3 CHRONIC KIDNEY DISEASE, STAGE 3 (MODERAT 02/12/2018 MARI WHITLOCK N Ot R97.21 RISING PSA FOL TREATMENT FOR MALIGNANT N 02/12/2018 MARI WHITLOCK N Ot Z51.0 ENCOUNTER FOR ANTINEOPLASTIC RADIATION T 02/12/2018 MARI WHITLOCK N Ot Z79.01 TELEMETRY TECH (CURRENT) USE OF ANTICOAGULANT 02/12/2018 MARI WHITLOCK N Ot Z79.899 OTHER TELEMETRY TECH (CURRENT) DRUG THERAPY 02/12/2018 MARI WHITLOCK N Ot Z86.718 PERSONAL HISTORY OF OTHER VENOUS THROMBO 02/13/2018 MARI WHITLOCK N Ot C61 MALIGNANT NEOPLASM OF PROSTATE 02/13/2018 MARI WHITLOCK N Ot E78.5 HYPERLIPIDEMIA, UNSPECIFIED 02/13/2018 MARI WHITLOCK N Ot I12.9 HYPERTENSIVE CHRONIC KIDNEY DISEASE W ST 02/13/2018 MARI WHITLOCK N Ot 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 02/13/2018 MARI WHITLOCK N Ot J44.9 CHRONIC OBSTRUCTIVE PULMONARY DISEASE, U 02/13/2018 MARI WHITLOCK N Ot N18.3 CHRONIC KIDNEY DISEASE, STAGE 3 (MODERAT 02/13/2018 MARI WHITLOCK N Ot R97.21 RISING PSA FOL TREATMENT FOR MALIGNANT N 02/13/2018 MARI WHITLOCK N Ot Z51.0 ENCOUNTER FOR ANTINEOPLASTIC RADIATION T 02/13/2018 MARI WHITLOCK N Ot Z79.01 TELEMETRY TECH (CURRENT) USE OF ANTICOAGULANT 02/13/2018 MARI WHITLOCK N Ot Z79.899 OTHER TELEMETRY TECH (CURRENT) DRUG THERAPY 02/13/2018 MARI WHITLOCK N Ot Z86.718 PERSONAL HISTORY OF OTHER VENOUS THROMBO 03/14/2018 MARI WHITLOCK N Ot C61 MALIGNANT NEOPLASM OF PROSTATE 03/14/2018 MARI WHITLOCK N Ot E78.5 HYPERLIPIDEMIA, UNSPECIFIED 03/14/2018 MARI WHITLOCK N Ot I12.9 HYPERTENSIVE CHRONIC KIDNEY DISEASE W ST 03/14/2018 MARI WHITLOCK N Ot 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 03/14/2018 MARI WHITLOCK N Ot J44.9 CHRONIC OBSTRUCTIVE PULMONARY DISEASE, U 03/14/2018 MARI WHITLOCK N Ot N18.3 CHRONIC KIDNEY DISEASE, STAGE 3 (MODERAT 03/14/2018 MARI WHITLOCK N Ot R97.21 RISING PSA FOL TREATMENT FOR MALIGNANT N 03/14/2018 MARI WHITLOCK N Ot Z79.01 CARE HOME (CURRENT) USE OF ANTICOAGULANT 03/14/2018 MARI WHITLOCK N Ot Z79.899 OTHER TELEMETRY TECH (CURRENT) DRUG THERAPY 03/14/2018 MARI WHITLOCK N Ot Z86.718 PERSONAL HISTORY OF OTHER VENOUS THROMBO 04/20/2018 MARI WHITLOCK N Ot C61 MALIGNANT NEOPLASM OF PROSTATE 04/20/2018 MARI WHITLOCK N Ot E78.5 HYPERLIPIDEMIA, UNSPECIFIED 04/20/2018 MARI WHITLOCK N Ot I12.9 HYPERTENSIVE CHRONIC KIDNEY DISEASE W ST 04/20/2018 MARI WHITLOCK N Ot 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 04/20/2018 MARI WHITLOCK N Ot J44.9 CHRONIC OBSTRUCTIVE PULMONARY DISEASE, U 04/20/2018 MARI WHITLOCK N Ot N18.3 CHRONIC KIDNEY DISEASE, STAGE 3 (MODERAT 04/20/2018 MARI WHITLOCK N Ot R97.21 RISING PSA FOL TREATMENT FOR MALIGNANT N 04/20/2018 MARI WHITLOCK N Ot Z79.01 CARE HOME (CURRENT) USE OF ANTICOAGULANT 04/20/2018 MARI WHITLOCK N Ot Z79.899 OTHER TELEMETRY TECH (CURRENT) DRUG THERAPY 04/20/2018 MARI WHITLOCK N Ot Z86.718 PERSONAL HISTORY OF OTHER VENOUS THROMBO 04/25/2018 MARI WHITLOCK N Ot C61 MALIGNANT NEOPLASM OF PROSTATE 04/25/2018 MARI WHITLOCK N Ot E78.5 HYPERLIPIDEMIA, UNSPECIFIED 04/25/2018 CHINYERE BOBAN N Ot I12.9 HYPERTENSIVE CHRONIC KIDNEY DISEASE W ST 04/25/2018 CHINYEREMARI N Ot 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 04/25/2018 MARI WHITLOCK N Ot J44.9 CHRONIC OBSTRUCTIVE PULMONARY DISEASE, U 04/25/2018 MARI WHITLOCK N Ot N18.3 CHRONIC KIDNEY DISEASE, STAGE 3 (MODERAT 04/25/2018 CHINYEREMARI RODGERS N Ot R97.21 RISING PSA FOL TREATMENT FOR MALIGNANT N 04/25/2018 MARI WHITLOCK N Ot Z79.01 TELEMETRY TECH (CURRENT) USE OF ANTICOAGULANT 04/25/2018 MARI WHITLOCK N Ot Z79.899 OTHER CARE HOME (CURRENT) DRUG THERAPY 04/25/2018 MARI WHITLOCK N Ot Z86.718 PERSONAL HISTORY OF OTHER VENOUS THROMBO 06/11/2018 MARI WHITLOCK N Ot C61 MALIGNANT NEOPLASM OF PROSTATE 06/11/2018 MARI WHITLOCK N Ot E78.5 HYPERLIPIDEMIA, UNSPECIFIED 06/11/2018 CHINYERE BOBAN N Ot I12.9 HYPERTENSIVE CHRONIC KIDNEY DISEASE W ST 06/11/2018 CHINYEREDANICAAN N Ot 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 06/11/2018 MARI WHITLOCK N Ot J44.9 CHRONIC OBSTRUCTIVE PULMONARY DISEASE, U 06/11/2018 MARI WHITLOCK N Ot N18.3 CHRONIC KIDNEY DISEASE, STAGE 3 (MODERAT 06/11/2018 CHINYERE BOBOLMAN N Ot R97.21 RISING PSA FOL TREATMENT FOR MALIGNANT N 06/11/2018 MARI WHITLOCK N Ot Z79.01 TELEMETRY TECH (CURRENT) USE OF ANTICOAGULANT 06/11/2018 MARI WHITLOCK Ot Z79.899 OTHER TELEMETRY TECH (CURRENT) DRUG THERAPY 06/11/2018 MARI WHITLOCK Ot Z86.718 PERSONAL HISTORY OF OTHER VENOUS THROMBO 08/22/2018 EVIE ADAMS MD Ot 272.4 HYPERLIPIDEMIA NEC/NOS 08/22/2018 EVIE ADAMS MD Ot 401.9 HYPERTENSION NOS 08/22/2018 EVIE ADAMS MD J Ot 573.8 LIVER DISORDERS NEC 08/22/2018 INDY GARZA, ERIKA E Ot 185 MALIGN NEOPL PROSTATE 08/22/2018 ERIKA PUTNAM MD E Ot 185 MALIGN NEOPL PROSTATE 08/22/2018 ERIKA PUTNAM MD E Ot 185 MALIGN NEOPL PROSTATE 08/22/2018 ERIKA PUTNAM MD E Ot 185 MALIGN NEOPL PROSTATE 08/22/2018 ERIKA PUTNAM MD E Ot 185 MALIGN NEOPL PROSTATE 08/22/2018 EVIE ADAMS MD Ot 272.4 HYPERLIPIDEMIA NEC/NOS 08/22/2018 EVIE ADAMS MD J Ot 401.9 HYPERTENSION NOS 08/22/2018 EVIE ADAMS MD Ot 433.10 CAROTID ARTERY OCCLUSION W O CEREBRAL IN 08/22/2018 EVIE ADAMS MD Ot 453.40 ACUTE VENOUS EMBOLISM THROMBOSIS UNSP 08/22/2018 INDY GARZA, ERIKA Hebert Ot C61 MALIGNANT NEOPLASM OF PROSTATE 08/22/2018 JUAREZ MAGALLANES MD Ot E20.9 HYPOPARATHYROIDISM, UNSPECIFIED 08/22/2018 JUAREZ MAGALLANES MD Ot M85.80 OTH DISRD OF BONE DENSITY AND STRUCTURE, 08/22/2018 JOSHUA RN, RODERICK Dan [employer] SAL[employer]PERATIONS ANALYST Ot C61 MALIGNANT NEOPLASM OF PROSTATE 08/22/2018 KASSIDY GALVAN Ot E78.2 MIXED HYPERLIPIDEMIA 08/22/2018 KASSIDY GALVAN Ot I10 ESSENTIAL (PRIMARY) HYPERTENSION 08/22/2018 KASSIDY GALVAN Ot 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 08/22/2018 KASSIDY GALVAN Ot R06.02 SHORTNESS OF BREATH 08/22/2018 JUAREZ MAGALLANES MD Ot M25.551 PAIN IN RIGHT HIP 09/26/2018 CHINYERE, BOBAN N Ot C61 MALIGNANT NEOPLASM OF PROSTATE 09/26/2018 MARI WHITLOCK Ot E78.5 HYPERLIPIDEMIA, UNSPECIFIED 09/26/2018 MARI WHITLOCK Ot I12.9 HYPERTENSIVE CHRONIC KIDNEY DISEASE W ST 09/26/2018 MARI WHITLOCK Ot 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 Results Test Result Range Prostate specific ag [mass/volume] in serum or plasma - 10/14/16 10:13 Prostate specific ag [mass/volume] in serum or plasma 5.11 % 0.00-4.00 Complete blood count (CBC) with automated white blood cell (WBC) differential - 10/24/16 17:43 Blood leukocytes automated count (number/volume) 9.2 10*3/uL 4.3-11.0 Blood erythrocytes automated count (number/volume) 5.27 10*6/uL 4.35-5.85 Venous blood hemoglobin measurement (mass/volume) 15.5 [...] Automated blood platelet mean volume measurement 10.0 [foz_us] 7.4-10.4 Automated blood neutrophils/100 leukocytes 92 % [...] NRG Blood erythrocyte morphology finding identification NORMAL NR Comprehensive metabolic panel - 10/24/16 17:43 Serum or plasma sodium measurement (moles/volume) 140 mmol/L 135-145 Serum or plasma potassium measurement (moles/volume) 4.3 mmol/L 3.6-5.0 Serum or plasma chloride measurement (moles/volume) 104 mmol/L 98-107 Carbon dioxide 24 mmol/L 21-32 Serum or plasma anion gap determination (moles/volume) 12 mmol/L 5-14 Serum or plasma urea nitrogen measurement (mass/volume) 34 mg/dL 7-18 Serum or plasma creatinine measurement (mass/volume) 1.94 mg/dL 0.60-1.30 Serum or plasma urea nitrogen/creatinine mass [...] Serum or plasma creatinine measurement (mass/volume) 1.41 mg/dL NRG Complete blood count (CBC) with automated white blood cell (WBC) differential - 03/20/17 18:54 Blood leukocytes automated count (number/volume) 5.0 10*3/uL 4.3-11.0 Blood erythrocytes automated count (number/volume) 4.49 10*6/uL 4.35-5.85 Venous blood hemoglobin measurement (mass/volume) 13.1 [...] Automated blood platelet mean volume measurement 9.4 [foz_us] 7.4-10.4 Automated blood neutrophils/100 leukocytes 58 % [...] Serum or plasma sodium measurement (moles/volume) 139 mmol/L 135-145 Serum or plasma potassium measurement (moles/volume) 4.4 mmol/L 3.6-5.0 Serum or plasma chloride measurement (moles/volume) 103 mmol/L 98-107 Carbon dioxide 28 mmol/L 21-32 Serum or plasma anion gap determination (moles/volume) 8 mmol/L 5-14 Serum or plasma urea nitrogen measurement (mass/volume) 25 mg/dL 7-18 Serum or plasma creatinine measurement (mass/volume) 1.58 mg/dL 0.60-1.30 Serum or plasma urea nitrogen/creatinine mass [...] or plasma troponin i.cardiac measurement (mass/volume) < ng/ mL <0.30 Serum or plasma thyrotropin measurement by detection limit <=0.05 miu/l (units/ volume) - 03/20/17 18:54 Serum or plasma thyrotropin measurement by detection limit <=0.05 miu/l (units/ volume) 0.93 u[iU]/mL 0.35-4.94 Complete urinalysis with reflex to culture - 03/20/17 20:00 Urine color determination YELLOW NRG Urine clarity determination VERY CLOUDY NRG Urine pH measurement by test strip 8 5-9 Specific gravity of urine by test strip 1.010 1.016- 1.022 Urine protein assay by test strip, semi-quantitative [...] urinalysis with reflex to culture NO NRG Complete blood count (CBC) with automated white blood cell (WBC) differential - 08/23/17 20:00 Blood leukocytes automated count (number/volume) 13.3 10*3/uL 4.3-11.0 Blood erythrocytes automated count (number/volume) 4.49 10*6/uL 4.35-5.85 Venous blood hemoglobin measurement (mass/volume) 13.7 g/dL 13.3-17.7 Blood hematocrit (volume fraction) 41 % 40-54 Automated erythrocyte mean corpuscular volume 91 [foz_us] 80-99 Automated erythrocyte mean corpuscular hemoglobin (mass per erythrocyte) 31 pg 25-34 Automated erythrocyte mean corpuscular hemoglobin concentration measurement ( mass/volume) 33 g/dL 32-36 Automated erythrocyte distribution width ratio 14.0 % 10.0-14.5 Automated blood platelet count (count/volume) 253 10*3/uL 130-400 Automated blood platelet mean volume measurement 9.7 [foz_us] 7.4-10.4 Automated blood neutrophils/100 leukocytes 79 % 42-75 Automated blood lymphocytes/100 leukocytes 11 % 12-44 Blood monocytes/100 leukocytes 9 % 0-12 Automated blood eosinophils/100 leukocytes 1 % 0-10 Automated blood basophils/100 leukocytes 0 % 0-10 Blood neutrophils automated count (number/volume) 10.5 10*3 1.8-7.8 Blood lymphocytes automated count (number/volume) 1.5 10*3 1.0-4.0 Blood monocytes automated count (number/volume) 1.2 10*3 0.0-1.0 Automated eosinophil count 0.1 10*3/uL 0.0-0.3 Automated blood basophil count (count/volume) 0.0 10*3/uL 0.0-0.1 PT panel in platelet poor plasma by coagulation assay - 08/23/17 20:00 Prothrombin time (PT) in platelet poor plasma by coagulation assay 25.0 s 12.2-14.7 INR in platelet poor plasma or blood by coagulation assay 2.3 0.8-1.4 Activated partial thromboplastin time (aPTT) in platelet poor plasma bycoagulation assay - 08/23/17 20:00 Activated partial thromboplastin time (aPTT) in platelet poor plasma bycoagulation assay 28 s 24-35 Comprehensive metabolic panel - 08/23/17 20:00 Serum or plasma sodium measurement (moles/volume) 141 mmol/L 135-145 Serum or plasma potassium measurement (moles/volume) 3.7 mmol/L 3.6-5.0 Serum or plasma chloride measurement (moles/volume) 104 mmol/L 98-107 Carbon dioxide 25 mmol/L 21-32 Serum or plasma anion gap determination (moles/volume) 12 mmol/L 5-14 Serum or plasma urea nitrogen measurement (mass/volume) 26 mg/dL 7-18 Serum or plasma creatinine measurement (mass/volume) 1.96 mg/dL 0.60-1.30 Serum or plasma urea nitrogen/creatinine mass ratio 13 NRG Serum or plasma creatinine measurement with calculation of estimated glomerular filtration rate 33 NRG Serum or plasma glucose measurement (mass/volume) 216 mg/dL 70-105 Serum or plasma calcium measurement (mass/volume) 9.1 mg/dL 8.5-10.1 Serum or plasma total bilirubin measurement (mass/volume) 0.3 mg/dL 0.1-1.0 Serum or plasma alkaline phosphatase measurement (enzymatic activity/volume) 24 U/L 40-136 Serum or plasma aspartate aminotransferase measurement (enzymatic activity/ volume) 29 U/L 5-34 Serum or plasma alanine aminotransferase measurement (enzymatic activity/volume ) 28 U/L 0-55 Serum or plasma protein measurement (mass/volume) 7.3 g/dL 6.4-8.2 Serum or plasma albumin measurement (mass/volume) 4.2 g/dL 3.2-4.5 Magnesium - 08/23/17 20:00 Magnesium 1.6 mg/dL 1.8-2.4 Serum or plasma creatine kinase measurement (enzymatic activity/volume) - 08/23 20:00 Serum or plasma creatine kinase measurement (enzymatic activity/volume) 181 U/L 30-200 Serum or plasma creatine kinase MB measurement (enzymatic activity/volume) - 20:00 Serum or plasma creatine kinase MB measurement (enzymatic activity/volume) 3.1 ng/mL <6.6 Serum or plasma troponin i.cardiac measurement (mass/volume) - 08/23/17 20:00 Serum or plasma troponin i.cardiac measurement (mass/volume) < ng/ mL <0.30 Serum or plasma lithium measurement (moles/volume) - 08/23/17 20:00 BNP level 75.5 pg/mL <100.0 Serum or plasma amylase measurement (enzymatic activity/volume) - 08/23/17 20: 00 Serum or plasma amylase measurement (enzymatic activity/volume) 35 U /L 25-125 Lipase - 08/23/17 20:00 Lipase 28 U/L 8-78 Serum or plasma thyrotropin measurement by detection limit <=0.05 miu/l (units/ volume) - 08/23/17 20:00 Serum or plasma thyrotropin measurement by detection limit <=0.05 miu/l (units/ volume) 2.78 u[iU]/mL 0.35-4.94 Capillary blood glucose measurement by glucometer (mass/volume) - 08/23/17 20: 17 Capillary blood glucose measurement by glucometer (mass/volume) 208 mg/dL 70-110 Complete urinalysis with reflex to culture - 08/23/17 22:25 Urine color determination YELLOW NRG Urine clarity determination SLIGHTLY CLOUDY NRG Urine pH measurement by test strip 5 5-9 Specific gravity of urine by test strip 1.020 1.016- 1.022 Urine protein assay by test strip, semi-quantitative 2+ NEGATIVE Urine glucose detection by automated test strip NEGATIVE NEGATIVE Erythrocytes detection in urine sediment by light microscopy 2+ NEGATIVE Urine ketones detection by automated test strip NEGATIVE NEGATIVE Urine nitrite detection by test strip NEGATIVE NEGATIVE Urine total bilirubin detection by test strip NEGATIVE NEGATIVE Urine urobilinogen measurement by automated test strip (mass/volume) NORMAL NORMAL Urine leukocyte esterase detection by dipstick 1+ NEGATIVE Automated urine sediment erythrocyte count by microscopy (number/high power field) [HPF] NRG Automated urine sediment leukocyte count by microscopy (number/high power field ) [HPF] NRG Bacteria detection in urine sediment by light microscopy NEGATIVE NRG Crystals detection in urine sediment by light microscopy NONE NRG Casts detection in urine sediment by light microscopy PRESENT NRG Mucus detection in urine sediment by light microscopy SMALL NRG Complete urinalysis with reflex to culture NO NRG Hyaline casts detection in urine sediment by light microscopy 25-50 NRG Stool occult blood screen - 08/24/17 01:35 Stool gastrointestinal hemoglobin detection POSITIVE NEGATIVE C DIFFICILE AG + TOXIN A/B. - 08/24/17 01:35 RESULTS NEGATIVE FOR ANTIGEN AND TOXIN A/B NRG Stool bacteria identification by culture - 08/24/17 01:35 Serum or plasma troponin i.cardiac measurement (mass/volume) - 08/24/17 02:00 Serum or plasma troponin i.cardiac measurement (mass/volume) < ng/ mL <0.30 Complete blood count (CBC) with automated white blood cell (WBC) differential - 08/24/17 03:35 Blood leukocytes automated count (number/volume) 6.8 10*3/uL 4.3-11.0 Blood erythrocytes automated count (number/volume) 4.05 10*6/uL 4.35-5.85 Venous blood hemoglobin measurement (mass/volume) 12.2 g/dL 13.3-17.7 Blood hematocrit (volume fraction) 37 % 40-54 Automated erythrocyte mean corpuscular volume 92 [foz_us] 80-99 Automated erythrocyte mean corpuscular hemoglobin (mass per erythrocyte) 30 pg 25-34 Automated erythrocyte mean corpuscular hemoglobin concentration measurement ( mass/volume) 33 g/dL 32-36 Automated erythrocyte distribution width ratio 14.0 % 10.0-14.5 Automated blood platelet count (count/volume) 195 10*3/uL 130-400 Automated blood platelet mean volume measurement 9.7 [foz_us] 7.4-10.4 Automated blood neutrophils/100 leukocytes 87 % 42-75 Automated blood lymphocytes/100 leukocytes 5 % 12-44 Blood monocytes/100 leukocytes 7 % 0-12 Automated blood eosinophils/100 leukocytes 0 % 0-10 Automated blood basophils/100 leukocytes 0 % 0-10 Blood neutrophils automated count (number/volume) 6.0 10*3 1.8-7.8 Blood lymphocytes automated count (number/volume) 0.4 10*3 1.0-4.0 Blood monocytes automated count (number/volume) 0.5 10*3 0.0-1.0 Automated eosinophil count 0.0 10*3/uL 0.0-0.3 Automated blood basophil count (count/volume) 0.0 10*3/uL 0.0-0.1 Comprehensive metabolic panel - 08/24/17 03:35 Serum or plasma sodium measurement (moles/volume) 140 mmol/L 135-145 Serum or plasma potassium measurement (moles/volume) 4.3 mmol/L 3.6-5.0 Serum or plasma chloride measurement (moles/volume) 108 mmol/L 98-107 Carbon dioxide 24 mmol/L 21-32 Serum or plasma anion gap determination (moles/volume) 8 mmol/L 5-14 Serum or plasma urea nitrogen measurement (mass/volume) 24 mg/dL 7-18 Serum or plasma creatinine measurement (mass/volume) 1.33 mg/dL 0.60-1.30 Serum or plasma urea nitrogen/creatinine mass ratio 18 NRG Serum or plasma creatinine measurement with calculation of estimated glomerular filtration rate 52 NRG Serum or plasma glucose measurement (mass/volume) 139 mg/dL 70-105 Serum or plasma calcium measurement (mass/volume) 8.2 mg/dL 8.5-10.1 Serum or plasma total bilirubin measurement (mass/volume) 0.4 mg/dL 0.1-1.0 Serum or plasma alkaline phosphatase measurement (enzymatic activity/volume) 18 U/L 40-136 Serum or plasma aspartate aminotransferase measurement (enzymatic activity/ volume) 32 U/L 5-34 Serum or plasma alanine aminotransferase measurement (enzymatic activity/volume ) 25 U/L 0-55 Serum or plasma protein measurement (mass/volume) 6.2 g/dL 6.4-8.2 Serum or plasma albumin measurement (mass/volume) 3.4 g/dL 3.2-4.5 Blood lactic acid measurement (moles/volume) - 08/24/17 08:50 Blood lactic acid measurement (moles/volume) 1.30 mmol/L 0.50-2.00 Bacterial blood culture - 08/24/17 08:50 Bacterial blood culture NG [facility] Bacterial blood culture - 08/24/17 08:55 Bacterial blood culture [facility] C DIFFICILE AG + TOXIN A/B. - 08/24/17 11:35 RESULTS NEGATIVE FOR ANTIGEN AND TOXIN A/B [facility] Complete blood count (CBC) with automated white blood cell (WBC) differential - 08/25/17 07:36 Blood leukocytes automated count (number/volume) 4.3 10*3/uL 4.3-11.0 Blood erythrocytes automated count (number/volume) 3.78 10*6/uL 4.35-5.85 Venous blood hemoglobin measurement (mass/volume) 11.3 g/dL 13.3-17.7 Blood hematocrit (volume fraction) 36 % 40-54 Automated erythrocyte mean corpuscular volume 94 [foz_us] 80-99 Automated erythrocyte mean corpuscular hemoglobin (mass per erythrocyte) 30 pg 25-34 Automated erythrocyte mean corpuscular hemoglobin concentration measurement ( mass/volume) 32 g/dL 32-36 Automated erythrocyte distribution width ratio 14.5 % 10.0-14.5 Automated blood platelet count (count/volume) 158 10*3/uL 130-400 Automated blood platelet mean volume measurement 9.6 [foz_us] 7.4-10.4 Automated blood neutrophils/100 leukocytes 68 % 42-75 Automated blood lymphocytes/100 leukocytes 19 % 12-44 Blood monocytes/100 leukocytes 11 % 0-12 Automated blood eosinophils/100 leukocytes 3 % 0-10 Automated blood basophils/100 leukocytes 0 % 0-10 Blood neutrophils automated count (number/volume) 2.9 10*3 1.8-7.8 Blood lymphocytes automated count (number/volume) 0.8 10*3 1.0-4.0 Blood monocytes automated count (number/volume) 0.5 10*3 0.0-1.0 Automated eosinophil count 0.1 10*3/uL 0.0-0.3 Automated blood basophil count (count/volume) 0.0 10*3/uL 0.0-0.1 Whole blood basic metabolic panel - 08/25/17 07:36 Serum or plasma sodium measurement (moles/volume) 141 mmol/L 135-145 Serum or plasma potassium measurement (moles/volume) 3.9 mmol/L 3.6-5.0 Serum or plasma chloride measurement (moles/volume) 112 mmol/L 98-107 Carbon dioxide 24 mmol/L 21-32 Serum or plasma anion gap determination (moles/volume) 5 mmol/L 5-14 Serum or plasma urea nitrogen measurement (mass/volume) 13 mg/dL 7-18 Serum or plasma creatinine measurement (mass/volume) 1.06 mg/dL 0.60-1.30 Serum or plasma urea nitrogen/creatinine mass ratio 12 NRG Serum or plasma creatinine measurement with calculation of estimated glomerular filtration rate > NRG Serum or plasma glucose measurement (mass/volume) 112 mg/dL 70-105 Serum or plasma calcium measurement (mass/volume) 7.5 mg/dL 8.5-10.1 PT panel in platelet poor plasma by coagulation assay - 08/25/17 07:36 Prothrombin time (PT) in platelet poor plasma by coagulation assay 20.0 s 12.2-14.7 INR in platelet poor plasma or blood by coagulation assay 1.7 0.8-1.4 Encounters ACCT No. Visit Date/Time Discharge Status Pt. Type Provider Facility Loc./Unit Complaint [id number] 08/30/2018 13:45:00 08/30/2018 23:59:59 CLS Outpatient MARI WHITLOCK N [facility] ONC [id number] 03/15/2018 14:32:00 03/15/2018 23:59:59 CLS Outpatient MARI WHITLOCK [facility] ONC [id number] 01/16/2018 14:07:00 02/12/2018 00:01:00 DIS Outpatient MARI WHITLOCK [facility] ONC [id number] 11/10/2017 13:04:00 11/13/2017 00:01:00 DIS Outpatient MARI WHITLOCK [facility] ONC [id number] 08/23/2017 22:43:00 08/25/2017 09:45:00 DIS Inpatient JUAREZ MAGALLANES MD [facility] ICU DEHYDRATION;ACUTE CHRONIC RENAL FAILURE; [id number] 07/06/2017 13:38:00 07/29/2017 00:01:00 DIS Outpatient MARI WHITLOCK [facility] ONC [id number] 04/10/2017 09:01:00 05/16/2017 00:01:00 DIS Outpatient MARI WHITLOCK [facility] ONC [id number] 03/20/2017 18:06:00 03/20/2017 21:08:00 DIS Emergency SUJATHA GABE K [facility] ER DIZZY SPELLS [id number] 02/15/2017 14:06:00 02/15/2017 23:59:59 CLS Outpatient JUAREZ MAGALLANES MD [facility] RAD RT HIP,GROIN PAIN [id number] 02/01/2017 13:30:00 02/01/2017 23:59:59 CLS Outpatient KARISSA PA, KASSIDY Webster [facility] CARD CAROTID ARTERY STENOSIS,DYSPNEA,HTN,HLP [id number] 01/16/2017 11:04:00 01/16/2017 23:59:59 CLS Outpatient JOSHUA HICKS, RODERICK MATOS [facility] CARD PROSTATE CA [id number] 01/10/2017 14:39:00 01/12/2017 00:01:00 DIS Outpatient ERIKA PUTNAM MD [facility] ONC [id number] 10/24/2016 16:19:00 10/24/2016 19:26:00 DIS Emergency ROSMERY GARZA, DL Macdonald [facility] ER VOMITING,DIARRHEA [id number] 07/28/2016 11:18:00 07/28/2016 23:59:59 CLS Outpatient JUAREZ MAGALLANES MD [facility] RAD EVALUATE FOR OSTEOPOROSIS [id number] 04/15/2016 08:46:00 04/15/2016 23:59:59 CLS Outpatient ERIKA PUTNAM MD [facility] ONC [id number] 03/04/2016 09:57:00 03/04/2016 10:47:00 DIS Emergency LING REYES MD [facility] ER RIGHT SHOULDER PAIN [id number] 10/16/2015 08:48:00 01/14/2016 00:01:00 DIS Outpatient ERIKA PUTNAM MD [facility] ONC [id number] 07/18/2015 13:44:00 07/18/2015 16:00:00 DIS Emergency JUSTIN MADDOX ACCOUNTING ASSISTANT [facility] ER WEAKNESS/DIARRHEA [id number] 06/25/2015 12:44:00 06/25/2015 23:59:59 CLS Outpatient EVIE ADAMS MD [facility] CARD HTN CAF DVT HYPERLIPIDEMIA [id number] 04/16/2015 08:51:00 04/16/2015 23:59:59 CLS Outpatient ERIKA PUTNAM MD [facility] ONC [id number] 10/16/2014 09:32:00 10/16/2014 23:59:59 CLS Outpatient ERIKA PUTNAM MD [facility] ONC [id number] 04/15/2014 09:03:00 04/15/2014 23:59:59 CLS Outpatient ERIKA PUTNAM MD [facility] ONC [id number] 10/15/2013 15:33:00 10/15/2013 23:59:59 CLS Outpatient ERIKA PUTNAM MD [facility] ONC [id number] 04/17/2013 08:52:00 04/17/2013 23:59:59 CLS Outpatient ERIKA PUTNAM MD [facility] ONC [id number] 04/02/2013 08:58:00 04/02/2013 23:59:59 CLS Outpatient EVIE ADAMS MD [facility] RAD HTN,HLP,HEPATIC CYST [id number] 06/25/2015 12:44:00 Document Registration [id number] 06/25/2015 12:44:00 Document Registration [id number] 06/25/2015 12:44:00 Document Registration [id number] 10/17/2012 09:02:00 Document Registration [id number] 03/27/2012 11:21:00 Document Registration [id number] 09/13/2011 08:57:00 Document Registration [id number] 03/10/2011 08:10:00 Document Registration [id number] 10/11/2010 13:08:00 Document Registration [id number] 03/31/2010 09:15:00 Document Registration [id number] 03/25/2010 09:16:00 Document Registration [id number] 09/07/2009 12:40:00 Document Registration [id number] 08/20/2009 14:59:00 Document Registration
[2018-11-08] MEDS ORDERED: predniSONE 20 MG TAB PO ONE (14:45)
[2018-11-08] MEDS ORDERED: morphine INJ 10 MG/ML 1ML (SYR OR VIAL) IJ ONE (14:45)
[2018-11-08] MEDS ORDERED: ORPHENADRINE 60 MG/2 ML (NORFLEX) AMP IM ONE (14:45)
--- NOTE | 2018-11-08 14:52 | ED Back Pain ---
General Chief Complaint: Back Problems Stated Complaint: BACK PAIN Nursing Triage Note: ARRIVED VIA WC. COMPLAINS OF LEFT LOWER BACK PAIN THAT RADIATES TO HIS GROIN AND DOWN HIS LEFT LEG. STATES HIS LEG IS VERY WEAK AND HE IS UNABLE TO MOVE IT ON HIS OWN. HAS BEEN TAKING HYDROCODONE WHICH IS NOT HELPING ANYMORE. CALLED HIS DR WHO TOLD HIM TO COME TO THE ER . SCHEDULED FOR INJECTION IN THE BACK THE LAST WEEK OF OCT. Nursing Sepsis Screen: No Definite Risk Source of Information: Patient Exam Limitations: No Limitations History of Present Illness Date Seen by Provider: Nov 08, 2018 Time Seen by Provider: 14:45 Initial Comments 78-year-old male who presents to the emergency room with complaints of left lower back pain that radiates to his groin and left leg. He reports that his left leg is very weak and it is painful to move on his own. He is prescribed hydrocodone by pain specialist and out of [place] but it is no longer helping. He has an appointment for an injection to the lower back last week of October, he did call the pain specialist in [place] and they referred him to the emergency room. He has been evaluated by Dr. Dumas the neuro spine surgeon in [place] and was diagnosed with spinal stenosis and is not a surgical candidate due to comorbidities. Denies loss of bowel or bladder, denies saddle paresthesia. Location: Lumbar Spine Timing/Duration: Other (Chronic) Severity: Severe Pain/Injury Location: Back Radiation: Upper Legs Associated Symptoms: denies symptoms Allergies and Home Medications Allergies Coded Allergies: Penicillins (Unverified Allergy, Mild, 09/22/09) Sulfa (Sulfonamide Antibiotics) (Unverified Allergy, Mild, 09/22/09) Home Medications Acetaminophen 500 Mg Tablet, 500-1,000 MG PO Q6H PRN for PAIN-MILD, (Reported) Alendronate Sodium 70 Mg Tablet, 70 MG PO Fr, (Reported) Amlodipine Besylate 5 Mg Tablet, 2.5 MG PO DAILY, (Reported) TAKES 1/2 (5MG) TABLET Aspirin 81 Mg Tablet., 81 MG PO HS, (Reported) Brinzolamide 10 Ml Btl, 1 DROP OU BID, (Reported) Cholecalciferol (Vitamin D3) 5,000 Unit Capsule, 5,000 UNIT PO Fr, (Reported) Cinnamon Bark 500 Mg Capsule, 500 MG PO DAILY, (Reported) Cyclobenzaprine HCl 10 Mg Tablet, 10 MG PO Q8H PRN for SPASMS Prescribed by: EDUAR BLANCO on 11/08/181541 Fenofibrate 160 Mg Tablet, 160 MG PO DAILY, (Reported) Furosemide 40 Mg Tablet, 40 MG PO MoWeFr, (Reported) Latanoprost 2.5 Ml Drops, 1 DROP OD HS, (Reported) Lisinopril 40 Mg Tablet, 40 MG PO DAILY, (Reported) Multivitamin 1 Each Tablet, 1 TAB PO DAILY, (Reported) Nebivolol HCl 5 Mg Tablet, 5 MG PO DAILY, (Reported) Niacin 500 Mg Tablet.er, 500 MG PO HS, (Reported) [place] 3 Polyunsat Fatty Acids 1,000 Mg Cap, 1,000 MG PO DAILY, (Reported) [place] 3 Polyunsat Fatty Acids 1,000 Mg Cap, 2,000 MG PO HS, (Reported) Potassium Chloride 20 Meq Tab.er.prt, 20 MEQ PO DAILY, (Reported) Prednisone 20 Mg Tab, 40 MG PO DAILY Prescribed by: EDUAR BLANCO on 11/08/181541 Rosuvastatin Calcium 5 Mg Tablet, 5 MG PO HS, (Reported) Timolol Maleate 5 Ml Drops, 1 DROP OU DAILY, (Reported) Warfarin Sodium 5 Mg Tablet, 5 MG PO HS, (Reported) Patient Home Medication List Home Medication List Reviewed: Yes Review of Systems Constitutional: no symptoms reported, see HPI Musculoskeletal: see HPI, back pain All Other Systems Reviewed Negative Unless Noted: Yes Past Rhhwklo-Setoez-Gptapv Hx Past Med/Social Hx: Reviewed Nursing Past Med/Soc Hx Patient Social History 2nd Hand Smoke Exposure: No Recent Foreign Travel: No Contact w/Someone Who Travel: No Recent Infectious Disease Expo: No Recent Hopitalizations: No Physical Abuse: No Sexual Abuse: No Immunizations Up To Date Tetanus Booster (TDap): Unknown Date of Influenza Vaccine: Aug 01, 2017 Seasonal Allergies Seasonal Allergies: No Past Medical History Surgeries: Yes Appendectomy, Orthopedic, Tonsillectomy Respiratory: No Pulmonary Embolism Cardiac: Yes Deep Vein Thrombosis, High Cholesterol, Hypertension, Irregular Heartbeat Neurological: Yes TIA Reproductive Disorders: No Sexually Transmitted Disease: No Genitourinary: Yes (PROSTATE CANCER) Prostate Problems Gastrointestinal: No Musculoskeletal: Yes Chronic Back Pain, Fractures Endocrine: No (PARATHYROIDECTOMY PARTIAL) HEENT: No Cancer: Yes (PROSTATE CANCER DX 2009) Prostate Did You Recieve Any Treatments: Yes What Type of Treatment Did You: Chemotherapy, Radiation Psychosocial: Yes Anxiety Integumentary: No Blood Disorders: Yes (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 3.0oz. [id number]; 31.8 BMI Method:Stated General Appearance: No Apparent Distress, WD/WN Cardiovascular: Regular Rate, Rhythm, No Edema, No Gallop, No JVD, No Murmur, Normal Peripheral Pulses Respiratory: Chest Non Tender, Lungs Clear, Normal Breath Sounds, No Accessory Muscle Use, No Respiratory Distress, Accessory Muscle Use Gastrointestinal: Normal Bowel Sounds, No Organomegaly, No Pulsatile Mass, Non Tender, Soft Extremity: Normal Capillary Refill, No Pedal Edema Neurologic/Psychiatric: Alert, Oriented x3, Normal Mood/Affect Skin: Normal Color, Warm/Dry Progress/Results/Core Measures Results/Orders My Orders Orders - EDUAR BLANCO Morphine Injection (Morphine Injection (11/08/18 14:45) Orphenadrine Injection (Norflex Injectio (11/08/18 14:45) Prednisone Tablet (Deltasone Tablet) (11/08/18 14:45) Im/Sub-Q Injection Non-Ab Ed (11/08/18 ) Medications Given in ED Vital Signs/I&O 11/08/18 11/08/18 14:04 15:50 Temp 98.9 98.9 Pulse 66 66 Resp 16 16 B/P (MAP) 139/80 (99) 136/73 (94) Pulse Ox 99 99 O2 Delivery Room Air Blood Pressure Mean: 99 Progress Progress Note : Time: 15:30 Progress Note Patients pain has improved a lot but not resolved. His reports that she has only been giving him half of the prescribed dose of hydrocodone. They were informed to give the medications as prescribed. They agree with plan of discharge, plans for follow up, return precautions were given. Departure Impression Primary Impression: Back pain Disposition: 01 HOME, SELF-CARE Condition: Stable/Unchanged Departure-Patient Inst. Decision time for Depature: 15:38 Referrals: JUAREZ MAGALLANES MD (PCP/Family) Primary Care Physician Patient Instructions: Low Back Pain (DC) Add. Discharge Instructions: Take medications as directed. Continue your prescribed medications as directed. You can take additional Tylenol 250-500 mg every 8 hours as needed for pain relief. Follow-up with Dr. Magallanes within 1 week for recheck. Follow-up with the pain clinic by calling tomorrow to see if you can get a sooner injection to the back. Return back to the emergency room for any worsening symptoms or concerns as needed. All discharge instructions reviewed with patient and/or family. Voiced understanding. Scripts Prednisone (Prednisone) 20 Mg Tab 40 MG PO DAILY, #8 TAB Prov: EDUAR BLANCO 11/08/18 Cyclobenzaprine HCl (Cyclobenzaprine HCl) 10 Mg Tablet 10 MG PO Q8H PRN for SPASMS, #14 TAB Prov: EDUAR BLANCO 11/08/18 EDUAR BLANCO Nov 08, 2018 14:52
[2018-11-08] MEDS ORDERED: CYCL10TA9 PO (15:42)
[2018-11-08] MEDS ORDERED: PRD20T PO (15:42)
[2018-11-08 15:50] VITALS: BP 136/73
== END 2018-11-08 15:50 | disposition home or self-care (01) ==
LOC: EDUNIT# 14:00 → ER 14:01
DX: M54.5 Low back pain (principal); E78.00 Pure hypercholesterolemia, unspecified; I10 Essential (primary) hypertension; Z85.46 Personal history of malignant neoplasm of prostate; F41.9 Anxiety disorder, unspecified; Z92.21 Personal history of antineoplastic chemotherapy; Z88.0 Allergy status to penicillin; Z88.2 Allergy status to sulfonamides; Z79.82 Long term (current) use of aspirin; Z79.01 Long term (current) use of anticoagulants; Z90.89 Acquired absence of other organs; Z90.49 Acquired absence of other specified parts of digestive tract; Z86.711 Personal history of pulmonary embolism; Z86.718 Personal history of other venous thrombosis and embolism
CPT/HCPCS: 96372; 99284

== ENCOUNTER → 2019-02-13 | Outpatient (RCR) | payer MEDICARE ==
[2019-02-06 08:37] LABS: BASOPHILS % (AUTO) 1 % (0-10); EOSINOPHILS # (AUTO) 0.1 10^3/uL (0.0-0.3); EOSINOPHILS % (AUTO) 3 % (0-10); HEMATOCRIT 39 % (40-54); HEMOGLOBIN 12.6 G/DL (13.3-17.7); LYMPHOCYTES # (AUTO) 1.2 X 10^3 (1.0-4.0); LYMPHOCYTES % (AUTO) 32 % (12-44); MEAN CORPUSCULAR HEMOGLOBIN 30 PG (25-34); MEAN CORPUSCULAR HGB CONC 33 G/DL (32-36); MEAN CORPUSCULAR VOLUME 92 FL (80-99); MEAN PLATELET VOLUME 9.4 FL (7.4-10.4); MONOCYTES # (AUTO) 0.5 X 10^3 (0.0-1.0); MONOCYTES % (AUTO) 12 % (0-12); NEUTROPHILS % (AUTO) 53 % (42-75); PLATELET COUNT 212 10^3/uL (130-400); RED CELL DISTRIBUTION WIDTH 14.1 % (10.0-14.5); WHITE BLOOD COUNT 3.8 10^3/uL (4.3-11.0)
[2019-02-06 08:54] LABS: ALBUMIN 3.8 GM/DL (3.2-4.5); BILIRUBIN,TOTAL 0.3 MG/DL (0.1-1.0); CALCIUM 9.2 MG/DL (8.5-10.1); CREATININE SERUM 1.2 MG/DL (0.60-1.30); POTASSIUM 4.8 MMOL/L (3.6-5.0); TOTAL PROTEIN 6.3 GM/DL (6.4-8.2)
[~2019-02-13] MED LIST changes: -ALEN70TA47 PO; +ALEN70TA5 PO; -AMLO5TAB7 PO; +AMLO5TAB9 PO; +CYCL10TA9 PO; +LEUPROLIDE 22.5 MG SYRINGE (ELIGARD) SQ SCH; +PRD20T PO
== END | disposition home or self-care (01) ==
LOC: ONC 11-15 10:48
PROVIDERS: ATTEND Internal Medicine Hematology & Oncology
DX: C61 Malignant neoplasm of prostate (principal); R97.21 Rising PSA following treatment for malignant neoplasm of prostate; I12.9 Hypertensive chronic kidney disease with stage 1 through stage 4 chronic kidney disease, or unspecified chronic kidney disease; N18.3 Chronic kidney disease, stage 3 (moderate); E78.5 Hyperlipidemia, unspecified; J44.9 Chronic obstructive pulmonary disease, unspecified; I65.23 Occlusion and stenosis of bilateral carotid arteries; Z86.718 Personal history of other venous thrombosis and embolism; Z79.01 Long term (current) use of anticoagulants; Z79.899 Other long term (current) drug therapy
CPT/HCPCS: 36415; 80053; 84153; 85025; 96402

== ENCOUNTER → 2019-04-23 | Outpatient (CLI) | payer MEDICARE ==
[~2019-04-23] MED LIST changes: -LEUPROLIDE 22.5 MG SYRINGE (ELIGARD) SQ SCH
== END ==
LOC: CARD 12:53
PROVIDERS: ATTEND Physician Assistant
DX: I65.29 Occlusion and stenosis of unspecified carotid artery (principal); R06.02 Shortness of breath; I10 Essential (primary) hypertension; E78.5 Hyperlipidemia, unspecified; I07.1 Rheumatic tricuspid insufficiency
CPT/HCPCS: 93306

== ENCOUNTER 2019-07-25 11:34 | Outpatient (RCR) | payer MEDICARE ==
[2019-05-01 09:04] LABS: BASOPHILS % (AUTO) 1 % (0-10); EOSINOPHILS # (AUTO) 0.1 10^3/uL (0.0-0.3); EOSINOPHILS % (AUTO) 3 % (0-10); HEMATOCRIT 39 % (40-54); HEMOGLOBIN 12.7 G/DL (13.3-17.7); LYMPHOCYTES # (AUTO) 1.1 X 10^3 (1.0-4.0); LYMPHOCYTES % (AUTO) 29 % (12-44); MEAN CORPUSCULAR HEMOGLOBIN 30 PG (25-34); MEAN CORPUSCULAR HGB CONC 32 G/DL (32-36); MEAN CORPUSCULAR VOLUME 92 FL (80-99); MEAN PLATELET VOLUME 9.6 FL (7.4-10.4); MONOCYTES # (AUTO) 0.4 X 10^3 (0.0-1.0); MONOCYTES % (AUTO) 10 % (0-12); NEUTROPHILS # (AUTO) 2.2 X 10^3 (1.8-7.8); NEUTROPHILS % (AUTO) 57 % (42-75); PLATELET COUNT 194 10^3/uL (130-400); RED CELL DISTRIBUTION WIDTH 14.3 % (10.0-14.5); WHITE BLOOD COUNT 3.9 10^3/uL (4.3-11.0)
[2019-05-01 09:22] LABS: ALANINE AMINOTRANSFERASE 25 U/L (0-55); ALKALINE PHOSPHATASE 23 U/L (40-136); BILIRUBIN,TOTAL 0.3 MG/DL (0.1-1.0); BUN/CREATININE RATIO 21; CALCIUM 8.9 MG/DL (8.5-10.1); CARBON DIOXIDE 24 MMOL/L (21-32); CHLORIDE 108 MMOL/L (98-107); CREATININE SERUM 1.03 MG/DL (0.60-1.30); GFR ESTIMATED > 60; GLUCOSE 136 MG/DL (70-105); SODIUM 141 MMOL/L (135-145); TOTAL PROTEIN 6.5 GM/DL (6.4-8.2)
[~2019-07-25 11:34] MED LIST changes: +LEUPROLIDE 22.5 MG SYRINGE (ELIGARD) SQ SCH; -ROSU5TAB12 PO; +ROSU5TAB13 PO
[2019-07-25 11:48] LABS: BASOPHILS % (AUTO) 1 % (0-10); EOSINOPHILS # (AUTO) 0.1 10^3/uL (0.0-0.3); EOSINOPHILS % (AUTO) 2 % (0-10); HEMATOCRIT 40 % (40-54); LYMPHOCYTES # (AUTO) 1.7 X 10^3 (1.0-4.0); LYMPHOCYTES % (AUTO) 31 % (12-44); MEAN CORPUSCULAR HEMOGLOBIN 30 PG (25-34); MEAN CORPUSCULAR HGB CONC 32 G/DL (32-36); MEAN CORPUSCULAR VOLUME 92 FL (80-99); MEAN PLATELET VOLUME 9.5 FL (7.4-10.4); MONOCYTES # (AUTO) 0.6 X 10^3 (0.0-1.0); MONOCYTES % (AUTO) 10 % (0-12); NEUTROPHILS # (AUTO) 3.1 X 10^3 (1.8-7.8); NEUTROPHILS % (AUTO) 57 % (42-75); PLATELET COUNT 227 10^3/uL (130-400); RED CELL DISTRIBUTION WIDTH 14.1 % (10.0-14.5); WHITE BLOOD COUNT 5.5 10^3/uL (4.3-11.0)
[2019-07-25 12:07] LABS: ALBUMIN 4.2 GM/DL (3.2-4.5); BILIRUBIN,TOTAL 0.3 MG/DL (0.1-1.0); CALCIUM 9.4 MG/DL (8.5-10.1); CREATININE SERUM 1.2 MG/DL (0.60-1.30); POTASSIUM 4.7 MMOL/L (3.6-5.0)
== END 2019-07-30 | disposition home or self-care (01) ==
LOC: ONC 11:34
PROVIDERS: ATTEND Internal Medicine Hematology & Oncology
DX: C61 Malignant neoplasm of prostate (principal); R97.21 Rising PSA following treatment for malignant neoplasm of prostate; I12.9 Hypertensive chronic kidney disease with stage 1 through stage 4 chronic kidney disease, or unspecified chronic kidney disease; N18.3 Chronic kidney disease, stage 3 (moderate); E78.5 Hyperlipidemia, unspecified; J44.9 Chronic obstructive pulmonary disease, unspecified; I65.23 Occlusion and stenosis of bilateral carotid arteries; Z86.718 Personal history of other venous thrombosis and embolism; Z79.01 Long term (current) use of anticoagulants; Z79.899 Other long term (current) drug therapy
CPT/HCPCS: 36415; 80053; 84153; 85025; 96402

== ENCOUNTER 2019-07-31 10:37 | Outpatient (RCR) | payer MEDICARE ==
[2019-07-31] MEDS ORDERED: LEUPROLIDE 45 MG ELIGARD SQ SCH (11:30)
== END 2019-10-29 | disposition home or self-care (01) ==
LOC: ONC 10:37
PROVIDERS: ATTEND Internal Medicine Hematology & Oncology
DX: Z51.11 Encounter for antineoplastic chemotherapy (principal); C61 Malignant neoplasm of prostate; N18.3 Chronic kidney disease, stage 3 (moderate); Z86.718 Personal history of other venous thrombosis and embolism
CPT/HCPCS: 96402

== ENCOUNTER 2020-02-14 10:53 | Outpatient (RCR) | payer MEDICARE ==
[2020-02-13 09:56] LABS: BASOPHILS % (AUTO) 1 % (0-10); EOSINOPHILS # (AUTO) 0.2 10^3/uL (0.0-0.3); EOSINOPHILS % (AUTO) 4 % (0-10); HEMATOCRIT 41 % (40-54); LYMPHOCYTES # (AUTO) 1.4 X 10^3 (1.0-4.0); LYMPHOCYTES % (AUTO) 33 % (12-44); MEAN CORPUSCULAR HEMOGLOBIN 29 PG (25-34); MEAN CORPUSCULAR HGB CONC 32 G/DL (32-36); MEAN CORPUSCULAR VOLUME 90 FL (80-99); MEAN PLATELET VOLUME 9.3 FL (7.4-10.4); MONOCYTES # (AUTO) 0.5 X 10^3 (0.0-1.0); MONOCYTES % (AUTO) 12 % (0-12); NEUTROPHILS # (AUTO) 2.2 X 10^3 (1.8-7.8); NEUTROPHILS % (AUTO) 51 % (42-75); PLATELET COUNT 229 10^3/uL (130-400); RED CELL DISTRIBUTION WIDTH 14.7 % (10.0-14.5); WHITE BLOOD COUNT 4.3 10^3/uL (4.3-11.0)
[2020-02-13 10:20] LABS: ALBUMIN 4.1 GM/DL (3.2-4.5); BILIRUBIN,TOTAL 0.4 MG/DL (0.1-1.0); CALCIUM 9.2 MG/DL (8.5-10.1); CREATININE SERUM 1.32 MG/DL (0.60-1.30); POTASSIUM 5.1 MMOL/L (3.6-5.0); TOTAL PROTEIN 6.9 GM/DL (6.4-8.2)
[~2020-02-14 10:53] MED LIST changes: -LEUPROLIDE 22.5 MG SYRINGE (ELIGARD) SQ SCH; -NIAC500T5 PO; -TRAM50TA2 PO; +TRM50T PO; +[UNRECOGNIZED DRUG - CODE] PO
[2020-02-14] MEDS ORDERED: LEUPROLIDE 45 MG ELIGARD SQ SCH (11:15)
== END 2020-05-13 | disposition home or self-care (01) ==
LOC: ONC 10:53
PROVIDERS: ATTEND Internal Medicine Hematology & Oncology
DX: Z51.81 Encounter for therapeutic drug level monitoring (principal); N18.3 Chronic kidney disease, stage 3 (moderate); I12.9 Hypertensive chronic kidney disease with stage 1 through stage 4 chronic kidney disease, or unspecified chronic kidney disease; E78.5 Hyperlipidemia, unspecified; J44.9 Chronic obstructive pulmonary disease, unspecified; Z85.46 Personal history of malignant neoplasm of prostate; Z86.718 Personal history of other venous thrombosis and embolism; Z92.3 Personal history of irradiation; Z92.21 Personal history of antineoplastic chemotherapy; Z79.899 Other long term (current) drug therapy
CPT/HCPCS: 80053; 84153; 85025; 96402

== ENCOUNTER 2020-08-17 12:49 | Outpatient (RCR) | payer MEDICARE ==
[2020-08-10 09:09] LABS: BASOPHILS # (AUTO) 0.1 10^3/uL (0.0-0.1); BASOPHILS % (AUTO) 1 % (0-10); EOSINOPHILS # (AUTO) 0.2 10^3/uL (0.0-0.3); EOSINOPHILS % (AUTO) 4 % (0-10); HEMATOCRIT 39 % (40-54); HEMOGLOBIN 12.3 g/dL (13.3-17.7); LYMPHOCYTES # (AUTO) 1.2 10^3/uL (1.0-4.0); LYMPHOCYTES % (AUTO) 27 % (12-44); MEAN CORPUSCULAR HEMOGLOBIN 30 pg (25-34); MEAN CORPUSCULAR HGB CONC 32 g/dL (32-36); MEAN CORPUSCULAR VOLUME 94 fL (80-99); MEAN PLATELET VOLUME 9.6 fL (9.0-12.2); MONOCYTES # (AUTO) 0.4 10^3/uL (0.0-1.0); MONOCYTES % (AUTO) 10 % (0-12); NEUTROPHILS # (AUTO) 2.6 10^3/uL (1.8-7.8); NEUTROPHILS % (AUTO) 58 % (42-75); PLATELET COUNT 230 10^3/uL (130-400); WHITE BLOOD COUNT 4.5 10^3/uL (4.3-11.0)
[2020-08-10 09:35] LABS: ALBUMIN 3.9 GM/DL (3.2-4.5); BILIRUBIN,TOTAL 0.3 MG/DL (0.1-1.0); CALCIUM 8.9 MG/DL (8.5-10.1); CREATININE SERUM 1.27 MG/DL (0.60-1.30); POTASSIUM 4.9 MMOL/L (3.6-5.0); TOTAL PROTEIN 6.5 GM/DL (6.4-8.2)
[~2020-08-17 12:49] MED LIST changes: -ALEN70TA5 PO; +ALEN70TA69 PO; +AMLO-250 PO; -AMLO5TAB9 PO; +ASPI-1238 PO; -ASPI-983 PO; +LEUPROLIDE 45 MG ELIGARD SQ SCH
== END 2020-11-08 | disposition home or self-care (01) ==
LOC: ONC 12:49
PROVIDERS: ATTEND Internal Medicine Hematology & Oncology
DX: Z51.11 Encounter for antineoplastic chemotherapy (principal); Z51.81 Encounter for therapeutic drug level monitoring; I12.9 Hypertensive chronic kidney disease with stage 1 through stage 4 chronic kidney disease, or unspecified chronic kidney disease; N18.30 Chronic kidney disease, stage 3 unspecified; E78.2 Mixed hyperlipidemia; J44.9 Chronic obstructive pulmonary disease, unspecified; Z85.46 Personal history of malignant neoplasm of prostate; Z86.718 Personal history of other venous thrombosis and embolism; Z92.3 Personal history of irradiation
CPT/HCPCS: 80053; 84153; 85025; 96402

== ENCOUNTER 2021-02-15 12:47 | Outpatient (RCR) | payer MEDICARE ==
[2021-02-08 09:33] LABS: BASOPHILS % (AUTO) 1 % (0-10); EOSINOPHILS # (AUTO) 0.1 10^3/uL (0.0-0.3); EOSINOPHILS % (AUTO) 2 % (0-10); HEMATOCRIT 39 % (40-54); HEMOGLOBIN 12.2 g/dL (13.3-17.7); LYMPHOCYTES # (AUTO) 1.3 X 10^3 (1.0-4.0); LYMPHOCYTES % (AUTO) 30 % (12-44); MEAN CORPUSCULAR HEMOGLOBIN 29 pg (25-34); MEAN CORPUSCULAR HGB CONC 32 g/dL (32-36); MEAN CORPUSCULAR VOLUME 92 fL (80-99); MONOCYTES # (AUTO) 0.4 X 10^3 (0.0-1.0); MONOCYTES % (AUTO) 10 % (0-12); NEUTROPHILS # (AUTO) 2.5 X 10^3 (1.8-7.8); NEUTROPHILS % (AUTO) 57 % (42-75); PLATELET COUNT 209 10^3/uL (130-400); WHITE BLOOD COUNT 4.4 10^3/uL (4.3-11.0)
[2021-02-08 09:49] LABS: ALBUMIN 3.9 GM/DL (3.2-4.5); BILIRUBIN,TOTAL 0.3 MG/DL (0.1-1.0); CREATININE SERUM 1.25 MG/DL (0.60-1.30); POTASSIUM 4.5 MMOL/L (3.6-5.0); TOTAL PROTEIN 6.6 GM/DL (6.4-8.2)
[~2021-02-15 12:47] MED LIST changes: -ALEN70TA69 PO; +ALEN70TA80 PO; -LEUPROLIDE 45 MG ELIGARD SQ SCH; -LISI40TA PO; +LISI40TA9 PO
[2021-02-15] MEDS ORDERED: LEUPROLIDE 45 MG ELIGARD SQ SCH (13:30)
== END 2021-05-09 | disposition home or self-care (01) ==
LOC: ONC 12:47
PROVIDERS: ATTEND Internal Medicine Hematology & Oncology
DX: C61 Malignant neoplasm of prostate (principal)
CPT/HCPCS: 80053; 84153; 85025; 96402

== ENCOUNTER 2021-08-02 08:56 | Outpatient (RCR) | payer MEDICARE ==
[~2021-08-02 08:56] MED LIST changes: +CYCL10TA25 PO; -CYCL10TA9 PO; +POTA-179 PO; -POTA20TA15 PO
[2021-08-02 09:05] LABS: BASOPHILS # (AUTO) 0.1 10^3/uL (0.0-0.1); BASOPHILS % (AUTO) 1 % (0-10); EOSINOPHILS # (AUTO) 0.2 10^3/uL (0.0-0.3); EOSINOPHILS % (AUTO) 5 % (0-10); HEMATOCRIT 42 % (40-54); HEMOGLOBIN 13.3 g/dL (13.3-17.7); LYMPHOCYTES # (AUTO) 1.4 10^3/uL (1.0-4.0); LYMPHOCYTES % (AUTO) 28 % (12-44); MEAN CORPUSCULAR HEMOGLOBIN 29 pg (25-34); MEAN CORPUSCULAR HGB CONC 32 g/dL (32-36); MEAN CORPUSCULAR VOLUME 93 fL (80-99); MEAN PLATELET VOLUME 9.2 fL (9.0-12.2); MONOCYTES # (AUTO) 0.5 10^3/uL (0.0-1.0); MONOCYTES % (AUTO) 11 % (0-12); NEUTROPHILS # (AUTO) 2.7 10^3/uL (1.8-7.8); NEUTROPHILS % (AUTO) 55 % (42-75); PLATELET COUNT 242 10^3/uL (130-400); WHITE BLOOD COUNT 4.9 10^3/uL (4.3-11.0)
[2021-08-02 09:26] LABS: BILIRUBIN,TOTAL 0.4 MG/DL (0.1-1.0); CALCIUM 9.9 MG/DL (8.5-10.1); CREATININE SERUM 1.28 MG/DL (0.60-1.30); POTASSIUM 4.9 MMOL/L (3.6-5.0)
[2021-08-02] MEDS ORDERED: LEUPROLIDE 45 MG ELIGARD SQ SCH (13:30)
== END 2021-10-29 | disposition home or self-care (01) ==
LOC: ONC 08:56
PROVIDERS: ATTEND Internal Medicine Hematology & Oncology
DX: C61 Malignant neoplasm of prostate (principal); I10 Essential (primary) hypertension; I25.10 Atherosclerotic heart disease of native coronary artery without angina pectoris; E78.2 Mixed hyperlipidemia; J44.9 Chronic obstructive pulmonary disease, unspecified; E66.9 Obesity, unspecified
CPT/HCPCS: 80053; 84153; 85025; 96402; G0463

== ENCOUNTER → 2022-06-22 | Outpatient (CLI) | payer MEDICARE ==
[~2022-06-22] MED LIST changes: +BRIN10DR6 OU; -BRIN1S OU
[2022-06-22 14:49] LABS: BASOPHILS % (AUTO) 0 % (0-10); EOSINOPHILS # (AUTO) 0.1 10^3/uL (0.0-0.3); EOSINOPHILS % (AUTO) 2 % (0-10); HEMATOCRIT 40 % (40-54); HEMOGLOBIN 12.7 g/dL (13.3-17.7); LYMPHOCYTES # (AUTO) 1.6 10^3/uL (1.0-4.0); LYMPHOCYTES % (AUTO) 21 % (12-44); MEAN CORPUSCULAR HEMOGLOBIN 30 pg (25-34); MEAN CORPUSCULAR HGB CONC 32 g/dL (32-36); MEAN CORPUSCULAR VOLUME 92 fL (80-99); MEAN PLATELET VOLUME 9.4 fL (9.0-12.2); MONOCYTES # (AUTO) 0.6 10^3/uL (0.0-1.0); MONOCYTES % (AUTO) 8 % (0-12); NEUTROPHILS # (AUTO) 4.9 10^3/uL (1.8-7.8); NEUTROPHILS % (AUTO) 68 % (42-75); PLATELET COUNT 252 10^3/uL (130-400); WHITE BLOOD COUNT 7.3 10^3/uL (4.3-11.0)
[2022-06-22 14:54] LABS: ALBUMIN 4.2 GM/DL (3.2-4.5); POTASSIUM 4.6 MMOL/L (3.6-5.0)
[2022-06-22 14:56] LABS: CALCIUM 9.7 MG/DL (8.5-10.1)
[2022-06-22 14:57] LABS: TOTAL PROTEIN 7.4 GM/DL (6.4-8.2)
[2022-06-22 14:58] LABS: BILIRUBIN,TOTAL 0.3 MG/DL (0.1-1.0)
[2022-06-22 15:00] LABS: CREATININE SERUM 1.21 MG/DL (0.60-1.30)
--- NOTE | 2022-06-22 15:47 | Diagnostic Imaging Report ---
INDICATION: Fall with left rib pain. TIME OF EXAM: 2:20 PM. TECHNIQUE: Three views of the left ribs were obtained. FINDINGS: There are age-indeterminate fractures involving the left 4th, 5th, and 6th ribs. There also appears to be an age indeterminate 7th rib fracture. There appears to be some callus formation and, therefore, these may be old. No parenchymal contusion, effusion, or pneumothorax is seen. There is some scarring or atelectasis in the left lung base. IMPRESSION: There are several age-indeterminate rib fractures on the left, potentially old. No other significant abnormality is seen. Dictated by: Dictated on workstation # [id number]
--- NOTE | 2022-06-22 17:00 | Diagnostic Imaging Report ---
Indication: Back injury from a fall Thoracic spine AP lateral views of the thoracic spine shows normal alignment. There is loss of height of T10 and T11 vertebra. IMPRESSION: There appears be compression fracture T10 and T11 of indeterminate age. MRI would be more sensitive to determine if any of the fractures are acute. Dictated by: Dictated on workstation # [id number]
== END ==
LOC: RAD 13:52
PROVIDERS: ATTEND Nurse Practitioner Family
DX: M48.54XS Collapsed vertebra, not elsewhere classified, thoracic region, sequela of fracture (principal); I10 Essential (primary) hypertension; C61 Malignant neoplasm of prostate; W19.XXXA Unspecified fall, initial encounter
CPT/HCPCS: 36415; 71100; 72072; 80053; 85025

== ENCOUNTER → 2022-11-24 | Outpatient (CLI) | payer MEDICARE ==
[2022-11-24 14:27] LABS: BASOPHILS % (AUTO) 0 % (0-10); EOSINOPHILS # (AUTO) 0.2 10^3/uL (0.0-0.3); EOSINOPHILS % (AUTO) 2 % (0-10); HEMATOCRIT 36 % (40-54); HEMOGLOBIN 11.5 g/dL (13.3-17.7); LYMPHOCYTES # (AUTO) 1.8 10^3/uL (1.0-4.0); LYMPHOCYTES % (AUTO) 19 % (12-44); MEAN CORPUSCULAR HEMOGLOBIN 29 pg (25-34); MEAN CORPUSCULAR HGB CONC 32 g/dL (32-36); MEAN CORPUSCULAR VOLUME 92 fL (80-99); MEAN PLATELET VOLUME 9.1 fL (9.0-12.2); MONOCYTES # (AUTO) 0.9 10^3/uL (0.0-1.0); MONOCYTES % (AUTO) 9 % (0-12); NEUTROPHILS # (AUTO) 6.7 10^3/uL (1.8-7.8); NEUTROPHILS % (AUTO) 69 % (42-75); PLATELET COUNT 234 10^3/uL (130-400); WHITE BLOOD COUNT 9.7 10^3/uL (4.3-11.0)
[2022-11-24 14:41] LABS: POTASSIUM 4.8 MMOL/L (3.6-5.0)
[2022-11-24 14:42] LABS: CALCIUM 9.9 MG/DL (8.5-10.1)
[2022-11-24 14:47] LABS: CREATININE SERUM 1.83 MG/DL (0.60-1.30)
== END ==
LOC: WOUNDCARE 12:55
PROVIDERS: ATTEND Family Medicine
DX: L89.313 Pressure ulcer of right buttock, stage 3 (principal); L24.A2 Irritant contact dermatitis due to fecal, urinary or dual incontinence; E66.01 Morbid (severe) obesity due to excess calories; M62.81 Muscle weakness (generalized); Z79.01 Long term (current) use of anticoagulants
CPT/HCPCS: 11042; 80048; 84134; 85025; A6212; G0463; 36415

== ENCOUNTER → 2022-12-01 | Outpatient (CLI) | payer MEDICARE | LOC: WOUNDCARE 13:19 | PROVIDERS: ATTEND Family Medicine | DX: L89.313 Pressure ulcer of right buttock, stage 3 (principal); L24.A2 Irritant contact dermatitis due to fecal, urinary or dual incontinence; E66.01 Morbid (severe) obesity due to excess calories; M62.81 Muscle weakness (generalized); E44.0 Moderate protein-calorie malnutrition; N18.30 Chronic kidney disease, stage 3 unspecified; Z79.01 Long term (current) use of anticoagulants | CPT/HCPCS: 11042; A6212; G0463 ==

== ENCOUNTER → 2022-12-08 | Outpatient (CLI) | payer MEDICARE | LOC: WOUNDCARE 13:24 | PROVIDERS: ATTEND Family Medicine | DX: L89.313 Pressure ulcer of right buttock, stage 3 (principal); L24.A2 Irritant contact dermatitis due to fecal, urinary or dual incontinence; E66.01 Morbid (severe) obesity due to excess calories; M62.81 Muscle weakness (generalized); E44.0 Moderate protein-calorie malnutrition; N18.30 Chronic kidney disease, stage 3 unspecified; Z79.01 Long term (current) use of anticoagulants | CPT/HCPCS: 99212 ==

== ENCOUNTER → 2023-03-29 | Outpatient (CLI) | payer MEDICARE ==
[~2023-03-29] MED LIST changes: +TIMO5DRO16 OU; -TIMO5DRO5 OU
--- NOTE | 2023-03-29 17:19 | Diagnostic Imaging Report ---
INDICATION: Left foot and ankle pain. Reported history of a prior pathological fracture. No relevant comparison examination is available. FINDINGS: Alignment of the distal tibia and fibula demonstrate no findings of an acute fracture or evidence of an underlying suspicious bone lesion. The talar dome is normal morphology. There are arthritic changes present within the mid foot without identified bone lesion. Note is made of advanced atherosclerosis. IMPRESSION: No evidence of an acute ankle fracture or malalignment. Background degenerative features are noted within the mid foot. Dictated by: Dictated on workstation # [id number]
--- NOTE | 2023-03-29 18:23 | Diagnostic Imaging Report ---
INDICATION: HX PATHOLOGICAL FRACTURE LT ANKLE AND FOOT PAIN. COMPARISON: None. FINDINGS: Three views of the left foot demonstrate no acute fracture or dislocation. There are no focal osseous lesions. There is mild generalized soft tissue swelling. Joint spaces are well maintained. No radiopaque foreign bodies are seen. IMPRESSION: No acute fractures or dislocations of the left foot. Dictated by: Dictated on workstation # [id number]
== END ==
LOC: RAD 10:43
PROVIDERS: ATTEND Nurse Practitioner Family
DX: M19.071 Primary osteoarthritis, right ankle and foot (principal); Z87.311 Personal history of (healed) other pathological fracture
CPT/HCPCS: 73610; 73630